=== PATIENT | female | born 1955 | race Caucasian/White ===

== ENCOUNTER 2016-09-11 19:18 | Observation (INO) | payer OTHER ==
[2016-09-11] MEDS ORDERED: ASPIRIN 81 MG CHEW PO STA ×2 (20:26→20:34)
--- NOTE | 2016-09-11 20:56 | ED ---
Chest Pain HPI - General Source: patient, RN notes reviewed Mode of arrival: wheelchair Limitations: no limitations <Ham Robins - Last Filed: 09/11/16 21:40> <Usama Barlow - Last Filed: 09/11/16 22:10> - General Chief Complaint: Chest Pain Stated Complaint: Chest Pain Time Seen by Provider: 09/11/16 20:26 - History of Present Illness Initial Comments: 60-year-old female presents emergency Department chief complaint chest pain. Patient states she had chest pain for proximal 4 hours earlier today. Patient states has subsided at this time. Patient states that she has had prior cardiac disease included MT. Patient states she currently sees Dr. Hernandez. Patient states that she has had some intermittent chest pain over the last few weeks but states today was worse. Patient states she took 2 baby aspirin today. Patient did have associated nausea and shortness of breath. Patient states she just didn't feel right. Patient states she has some pain in her left axilla. Patient does not have a history of diabetes though she did states that she has a history of hypertension, hyperlipidemia and smoking history. Patient states she is currently symptom-free at this time. Denies any headache or dizziness. Denies any cough, chest congestion, fever or chills. (Ham Robins) - Related Data Home Medications Medication Instructions Recorded Confirmed Aspirin 81 mg PO DAILY 09/11/16 09/11/16 Lisinopril-Hctz 20-25 mg 1 tab PO DAILY 09/11/16 09/11/16 [Zestoretic 20-25] Loratadine [Claritin] 10 mg PO DAILY PRN 09/11/16 09/11/16 Multivitamins, Thera [Multivitamin 0.5 tab PO BID 09/11/16 09/11/16 (formulary)] Naproxen [Naprosyn] 500 mg PO Q12HR PRN 09/11/16 09/11/16 Pravastatin Sodium [Pravachol] 20 mg PO DAILY 09/11/16 09/11/16 Ranitidine HCl [Zantac] 150 mg PO DAILY 09/11/16 09/11/16 Allergies Allergy/AdvReac Type Severity Reaction Status Date / Time No Known Allergies Allergy Unverified 09/11/16 20:36 Review of Systems ROS Other: All systems not noted in ROS Statement are negative. <Ham Robins - Last Filed: 09/11/16 21:40> ROS Other: All systems not noted in ROS Statement are negative. <Usama Barlow Bhakti - Last Filed: 09/11/16 22:10> ROS Statement: Those systems with pertinent positive or pertinent negative responses have been documented in the HPI. EKG Findings - EKG Comments: EKG Findings:: EKG performed at 19:28 normal sinus rhythm with a rate of 83, MI interval 144, QRS duration 78, QT/QTC 358/420 <Ham Robins - Last Filed: 09/11/16 21:40> Past Medical History Past Medical History: Hyperlipidemia, Hypertension, Myocardial Infarction ([place]) Additional Past Medical History / Comment(s): leaky vavle - unknown which valve History of Any Multi-Drug Resistant Organisms: None Reported Additional Past Surgical History / Comment(s): cyst removed Past Psychological History: No Psychological Hx Reported Smoking Status: Current every day smoker Past Alcohol Use History: Daily Past Drug Use History: None Reported <Ham Robins - Last Filed: 09/11/16 21:40> General Exam Limitations: no limitations General appearance: alert, in no apparent distress Head exam: Present: atraumatic, normocephalic, normal inspection ENT exam: Present: normal exam, normal oropharynx, mucous membranes moist Neck exam: Present: normal inspection, full ROM. Absent: tenderness, meningismus, lymphadenopathy Respiratory exam: Present: normal lung sounds bilaterally. Absent: respiratory distress, wheezes, rales, rhonchi, stridor Cardiovascular Exam: Present: regular rate, normal rhythm, normal heart sounds. Absent: systolic murmur, diastolic murmur, rubs, gallop, clicks GI/Abdominal exam: Present: soft, normal bowel sounds. Absent: distended, tenderness, guarding, rebound, rigid <Ham Robins - Last Filed: 09/11/16 21:40> General appearance: alert, in no apparent distress, anxious Head exam: Present: atraumatic, normocephalic, normal inspection Eye exam: Present: normal appearance, PERRL, EOMI. Absent: scleral icterus, conjunctival injection, periorbital swelling ENT exam: Present: normal exam, mucous membranes moist Neck exam: Present: normal inspection. Absent: tenderness, meningismus, lymphadenopathy Respiratory exam: Present: normal lung sounds bilaterally. Absent: respiratory distress, wheezes, rales, rhonchi, stridor Cardiovascular Exam: Present: regular rate, normal rhythm, normal heart sounds. Absent: systolic murmur, diastolic murmur, rubs, gallop, clicks GI/Abdominal exam: Present: soft, normal bowel sounds. Absent: distended, tenderness, guarding, rebound, rigid Extremities exam: Present: normal inspection, full ROM, normal capillary refill. Absent: tenderness, pedal edema, joint swelling, calf tenderness Back exam: Present: normal inspection Neurological exam: Present: alert, oriented X3, CN II-XII intact Psychiatric exam: Present: normal affect, normal mood Skin exam: Present: warm, dry, intact, normal color. Absent: rash <Usama Barlow - Last Filed: 09/11/16 22:10> Course <Ham Robins - Last Filed: 09/11/16 21:40> <Usama Barlow - Last Filed: 09/11/16 22:10> Vital Signs 09/11/16 20:40 Temperature 98.9 F Pulse Rate 78 Respiratory 18 Rate Blood Pressure 106/62 O2 Sat by Pulse 100 Oximetry - Reevaluation(s) Reevaluation #1: 09/11/16 22:09 Patient remains a typical chest pain at this time, spoke with Dr. Cuevas re- admission (Usama Barlow) Chest Pain MDM <Ham Robins - Last Filed: 09/11/16 21:40> <Usama Barlow - Last Filed: 09/11/16 22:10> - MDM 60 female in the ER for evaluation of chest pain. Patient has typical chest pain, patient's initial EKG and troponin are negative, significant cardiac risk include prior MT hypertension high cholesterol, patient will be admitted for trending of troponin, cardiac observation (Usama Barlow) Critical Care Time Critical Care Time: Yes Total Critical Care Time: 31 <Usama Barlow - Last Filed: 09/11/16 22:10> Disposition <Ham Robins - Last Filed: 09/11/16 21:40> <Usama Barlow - Last Filed: 09/11/16 22:10> Clinical Impression: Unstable angina Disposition: ADMITTED IP TO THIS HOSP Condition: Good Referrals: Anish Hernandez MD [Primary Care Provider] - 1-2 days
[2016-09-11 21:02] LABS: Basophils % (A) 0 %; CH 33.8; CHCM 33.4; Eosinophils # (A) 0.1 k/uL (0-0.7); Eosinophils % (A) 2 %; HCT 32.7 % (34.0-46.0); HDW 2.14; HGB 10.8 gm/dL (11.4-16.0); Luc # (Auto) 0.19; Luc % (Auto) 4; Lymphocytes # (A) 1.6 k/uL (1.0-4.8); Lymphocytes % (A) 31 %; MCH 33.6 pg (25.0-35.0); MCV 101.7 fL (80.0-100.0); Macrocytosis Slight; Mean Platelet Volume 9.4; Monocytes # (A) 0.3 k/uL (0-1.0); Monocytes % (A) 6 %; Neutrophils # (A) 2.9 k/uL (1.3-7.7); Neutrophils % (A) 57 %; RBC 3.21 m/uL (3.80-5.40); RDW 13.2 % (11.5-15.5); WBC 5.1 k/uL (3.8-10.6); WBC (Perox) 5.27
[2016-09-11 21:09] LABS: Partial Thromboplastin Time 22.1 sec (22.0-30.0); Prothrombin Time 9.8 sec (9.0-12.0)
[2016-09-11 21:10] LABS: Calcium 10.4 mg/dL (8.4-10.2); Magnesium 1.8 mg/dL (1.6-2.3); Potassium 5.3 mmol/L (3.5-5.1); Total Bilirubin 0.5 mg/dL (0.2-1.3); Total Protein 7.9 g/dL (6.3-8.2)
--- NOTE | 2016-09-11 21:22 | XR ---
EXAMINATION TYPE: XR chest 2V DATE OF EXAM: 09/11/2016 9:06 PM COMPARISON: NONE HISTORY: Chest pain TECHNIQUE: Frontal and lateral views of the chest are obtained. FINDINGS: Heart and mediastinum are normal. Lungs are clear. Diaphragm is normal. Bony thorax is int act. There are chest leads. IMPRESSION: Normal chest.
[2016-09-11 21:32] LABS: Creatine Kinase 78 U/L (30-135)
[2016-09-11] MEDS ORDERED: HEPARIN SODIUM,PORCINE 5,000 UNIT/ML 1 ML VIAL IV ONE (21:41)
[2016-09-11] MEDS ORDERED: NITROGLYCERIN SL TABS 0.4 MG TAB SUBLINGUAL PRN (21:41)
[2016-09-11 21:44] LABS: Creatine Kinase MB 0.4 ng/mL (0.0-2.4); Troponin I <0.012 ng/mL (0.000-0.034)
[2016-09-11] MEDS ORDERED: HEPARIN SODIUM,PORCINE/D5W PMX 25,000 UNIT in DEXTROSE/WATER 1 500ML.BAG IV SCH (21:45)
[2016-09-11] MEDS ORDERED: SODIUM CHLORIDE 0.9% 1,000 ML IV STA (22:44)
[2016-09-11] MEDS ORDERED: NICOTINE 21MG/24HR PATCH TRANSDERM STA (23:15)
[2016-09-11 23:55] VITALS: BMI 18.7
[2016-09-12 02:44] LABS: Creatine Kinase 64 U/L (30-135)
[2016-09-12 02:58] LABS: Creatine Kinase MB 0.4 ng/mL (0.0-2.4); Troponin I <0.012 ng/mL (0.000-0.034)
[2016-09-12] MEDS ORDERED: FAMOTIDINE 20 MG TAB PO SCH (09:00)
[2016-09-12] MEDS ORDERED: ASPIRIN 325 MG TAB PO SCH (09:00)
[2016-09-12 10:01] LABS: Anion Gap 13 mmol/L; Blood Urea Nitrogen 30 mg/dL (7-17); Calcium 10.2 mg/dL (8.4-10.2); Carbon Dioxide 21 mmol/L (22-30); Chloride 104 mmol/L (98-107); Cholesterol 183 mg/dL (<200); Glucose 86 mg/dL (74-99); HDL Cholesterol 110 mg/dL (40-60); Non-African American GFR(MDRD) 58 (>60 ml/min/1.73 sqM); Potassium 5.3 mmol/L (3.5-5.1); Sodium 138 mmol/L (137-145); Triglycerides 72 mg/dL (<150)
[2016-09-12 10:13] LABS: Creatine Kinase 64 U/L (30-135)
[2016-09-12 10:25] LABS: Creatine Kinase MB 0.3 ng/mL (0.0-2.4); Troponin I <0.012 ng/mL (0.000-0.034)
[2016-09-12] MEDS ORDERED: REGADENOSON 0.4 MG/5 ML SYRINGE IV ONE (13:00)
--- NOTE | 2016-09-12 13:01 | CONS ---
DATE OF CONSULTATION: This is a 60-year-old female. Patient follows with my associate, Dr. Joel Hernandez, in the office. The patient apparently had a few episodes of chest heaviness and pressure on a scale of 1 to 10, 5 with radiation to both axilla and jaw, lasting for about 6 or 6 minutes. Patient did not have any nitroglycerin to try. The patient presented to the emergency room. Patient was pain free by the time came to the emergency room, took 2 nitroglycerin tablets. Patient is a smoker, smokes about 1-1/2 packs of cigarettes a day. Patient also takes alcoholic beverages, a couple of drinks a day. Patient is known to have hypertension, hyperlipidemia, history of smoking. No previous cardiac interventions. Patient's current medications are aspirin 81 mg p.o. daily, lisinopril with hydrochlorothiazide 1 tablet daily, Claritin 10 mg p.o. daily, multivitamins daily, Naprosyn 500 mg every 12 hours p.r.n., pravastatin 20 mg daily, ranitidine 150 mg. Patient has been advised to stop using Naprosyn because of the hyperkalemia. ALLERGIES: None mentioned. Patient's coronary risk factors are hypertension, and patient's cholesterol is normal with LDL cholesterol of 59 and history of smoking. PHYSICAL EXAMINATION: A 60-year-old female not in acute distress, oriented x3 with a pulse rate of 65 beats per minute and regular, blood pressure of 110/64, respirations of 16. HEAD: Normocephalic. HEENT: Unremarkable. NECK: Neck is supple. No thyroid enlargement. No bruit noted. Good carotid upstroke bilaterally. Chest is symmetrical. CARDIAC EXAMINATION: Regular rate and rhythm. S1 and S2. Lungs reveal scattered rhonchi, otherwise unremarkable. ABDOMEN: Soft, no organomegaly. Active bowel sounds. EXTREMITIES: Fair peripheral pulses. No pedal edema. SAND CASTER EXAMINATION: Grossly within normal limits. ASSESSMENT: 1. Chest pain suggestive of angina, possibly vasospastic ( ) by nicotine. 2. Long-term nicotine abuse. 3. History of alcohol use. 4. Hypertension. 5. Mild hyperkalemia probably secondary to non-steroidal anti-inflammatory use. RECOMMENDATIONS: Proceed with stress echocardiogram if normal, patient will go home. If the stress echocardiogram is abnormal, will hold lisinopril ( ) because the blood pressure is low. She will continue pravastatin as before.
--- NOTE | 2016-09-12 13:27 | P.HPIM ---
History of Present Illness H&P Date: 09/12/16 Chief Complaint: Chest pain Patient is a 60-year-old female, patient of Dr. Reji Cuevas in the outpatient setting, with medical history significant for hyperlipidemia, hypertension, myocardial infarction, chronic kidney disease stage III, mild pulmonary hypertension, nicotine dependence, and daily alcohol use. Patient presented to the emergency department with complaints of chest pressure located in the middle of her chest radiating to her right and left armpit and upper neck associated with nausea and some shortness of breath. Patient awoke with symptoms at 6:30 in the morning and states symptoms lasted approximately 6-8 minutes. Patient states that over the last 3 weeks she has experienced symptoms approximately 2 or 3 times a week. No history of recent illness, nausea , vomiting, fevers, abdominal pain, leg swelling, numbness or tingling. Patient denies diarrhea or constipation. Patient denies any urinary symptoms. Admission labs with evidence of anemia with a hemoglobin of 10.8, hyperkalemia with a potassium of 5.3, acute on chronic renal failure with BUN to creatinine ratio greater than 20, and troponins negative 3. Chest x-ray without evidence of acute cardiopulmonary process. In the emergency department, patient was started on IV heparin and admitted for observation with cardiology consult. Patient is currently denying nausea, vomiting, chills, fevers, shortness of breath, chest pain, abdominal pain, leg swelling, numbness or tingling. Patient is scheduled to undergo stress test, echocardiogram with Doppler result pending. Past Medical History Past Medical History: Hyperlipidemia, Hypertension, Myocardial Infarction ([place]), Renal Disease (Chronic renal disease stage III.) Additional Past Medical History / Comment(s): leaky vavle - unknown which valve , mild pulmonary hypertension Last Myocardial Infarction Date:: 2004 History of Any Multi-Drug Resistant Organisms: None Reported Additional Past Surgical History / Comment(s): cyst removed from ovary Past Anesthesia/Blood Transfusion Reactions: No Reported Reaction Past Psychological History: No Psychological Hx Reported Smoking Status: Current every day smoker Past Alcohol Use History: Daily Past Drug Use History: None Reported - Past Family History Mother Family Medical History: Diabetes Mellitus Father Family Medical History: Diabetes Mellitus Medications and Allergies Home Medications Medication Instructions Recorded Confirmed Type Aspirin 81 mg PO DAILY 09/11/16 09/11/16 History Lisinopril-Hctz 20-25 mg 1 tab PO DAILY 09/11/16 09/11/16 History [Zestoretic 20-25] Loratadine [Claritin] 10 mg PO DAILY PRN 09/11/16 09/11/16 History Multivitamins, Thera [Multivitamin 0.5 tab PO BID 09/11/16 09/11/16 History (formulary)] Naproxen [Naprosyn] 500 mg PO Q12HR PRN 09/11/16 09/11/16 History Pravastatin Sodium [Pravachol] 20 mg PO DAILY 09/11/16 09/11/16 History Ranitidine HCl [Zantac] 150 mg PO DAILY 09/11/16 09/11/16 History Allergies Allergy/AdvReac Type Severity Reaction Status Date / Time No Known Allergies Allergy Verified 09/11/16 23:42 Physical Exam Vitals: Vital Signs Temp Pulse Pulse Resp BP BP Pulse Ox 09/12/16 12:00 98.8 F 70 16 108/59 100 09/12/16 08:00 98.2 F 72 18 110/64 97 09/12/16 04:00 98.8 F 65 16 84/51 100 09/12/16 00:22 16 09/11/16 23:35 98.3 F 69 16 106/56 96 09/11/16 23:00 97.9 F 72 20 100/65 100 Intake and Output 09/11/16 09/12/16 09/12/16 22:59 06:59 14:59 Other: Voiding Method Toilet # Voids 1 1 Weight 43.5 kg GENERAL: Pt awake and alert, thin, in no acute distress. HEAD: Atraumatic, normocephalic. EYES: Pupils equal, round, and reactive to light, extraocular movements intact, sclera anicteric, conjunctiva are normal. ENT: Oropharynx clear without exudates. Moist mucous membranes. NECK:Normal range of motion, supple without lymphadenopathy or JVD. LUNGS: Breath sounds with few scattered rhonchi to auscultation bilaterally. No wheezes. HEART: Heart S1, S2, no S3 or S4. Regular rate and rhythm. No murmurs, rubs or gallops. ABDOMEN: Soft, nontender, nondistended, normoactive bowel sounds. No guarding, no rebound. No masses or organomegaly appreciated. EXTREMITIES: Palpable peripheral pulses. No edema. No calf tenderness. NEUROLOGICAL: Pt oriented x 3. No focal deficits noted. Strength and sensation grossly intact. PSYCH: Normal mood, normal affect. SKIN: Warm, dry, intact. Normal turgor. No rashes or lesions. Results CBC & Chem 7: 09/11/16 20:50 09/12/16 08:45 Labs: Abnormal Lab Results - Last 24 Hours (Table) 09/12/16 Range/Units 08:45 Potassium 5.3 H (3.5-5.1) mmol/L Carbon Dioxide 21 L (22-30) mmol/L BUN 30 H (7-17) mg/dL HDL Cholesterol 110 H (40-60) mg/dL Chest x-ray: report reviewed Thrombosis Risk Factor Assmnt - DVT/VTE Prophylaxis DVT/VTE Prophylaxis: Low risk, early ambulation encouraged - Choose All That Apply Each Factor Represents 1 point: Age 41-60 years Thrombosis Risk Factor Assessment Total Risk Factor Score: 1 Thrombosis Risk Factor Assessment Level: Low Risk Assessment and Plan Plan: Impression and plan: 1. Unstable angina, present on admission. Cardiology service has been consulted, recommendations pending. Troponins negative 3. 2. Macrocytic anemia suspect secondary to alcohol use. 3. Hyperkalemia. Will hold NSAIDs, lisinopril, and hydrochlorothiazide. 4. Chronic renal failure, stage III. 5. Hyperlipidemia. 6. History of hypertension. 7. Mild pulmonary hypertension. 8. History of myocardial infarction. 9. Nicotine dependence. 10. Daily alcohol use. Continue to monitor patient. Continue current medications. Patient scheduled to undergo stress test. Echocardiogram with Doppler result pending. Smoking cessation encouraged. Will check B12 and folate. Encourage smoking cessation. Continue follow cardiology service. The above impression and plan have been discussed and directed by Dr. Cuevas. John KAY acting as scribe for Dr. Cuevas.
--- NOTE | 2016-09-12 13:35 | ECHOF ---
Referral Reason:chest pain MEASUREMENTS -------- HEIGHT: 154.9 cm WEIGHT: 43.1 kg BP: 84/51 IVSd: 1.0 cm (0.6 - 1.1) LVIDd: 3.3 cm (3.9 - 5.3) LVPWd: 1.1 cm (0.6 - 1.1) IVSs: 1.4 cm LVIDs: 2.5 cm LVPWs: 1.4 cm Ao Diam: 2.6 cm (2.0 - 3.7) AV Cusp: 1.7 cm (1.5 - 2.6) LA Diam: 2.3 cm (2.7 - 3.8) MV EXCURSION: 14.056 mm (> 18.000) MV EF SLOPE: 85 mm/s (70 - 150) EPSS: 0.3 cm MV E Juan: 0.74 m/s MV DecT: 224 ms MV A Juan: 0.73 m/s MV E/A Ratio: 1.01 RAP: 5.00 mmHg RVSP: 32.95 mmHg FINDINGS -------- Sinus rhythm. This was a technically good study. The left ventricular size is normal. Left ventricular wall thickness is normal. Overall left ventricular systolic function is normal with, an EF between 55 - 60 %. The right ventricle is normal in size and function. The left atrium is normal in size. The right atrium is normal in size. The aortic valve is trileaflet, and appears structurally normal. No aortic stenosis or regurgitation. The mitral valve is normal. Mild mitral regurgitation is present. Moderate tricuspid regurgitation present. The right ventricular systolic pressure, as measured by Doppler, is 32.95mmHg. There is no pulmonic regurgitation present. The aortic root size is normal. There is no pericardial effusion. CONCLUSIONS -------- 1. Sinus rhythm. 2. There is no pulmonic regurgitation present. 3. The aortic root size is normal. 4. There is no pericardial effusion. 5. This was a technically good study. 6. Left ventricular wall thickness is normal. 7. Overall left ventricular systolic function is normal with, an EF between 55 - 60 %. 8. The left atrium is normal in size. 9. The aortic valve is trileaflet, and appears structurally normal. No aortic stenosis or regurgitation. 10. Mild mitral regurgitation is present. 11. Moderate tricuspid regurgitation present. 12. The right ventricular systolic pressure, as measured by Doppler, is 32.95mmHg. [employer]: Saige Hubbard RDCS
--- NOTE | 2016-09-12 14:18 | EST ---
DATE OF SERVICE: 09/12/2016 AGE: 60Y SEX: F HT: 60" WT: 95 lbs. Lexiscan Cardiolite Stress Test *Heart Rate Blood Pressure *Rest: 82 Rest: 111/67 * *Max. Achieved: 136 Maximum BP: 124/71 85% PMHR: 137 100% PMHR: 161 *METS: - INDICATIONS: Chest pain. MEDICATIONS: - Baseline rhythm is sinus mechanism, rate of 82, poor R0wave progression. Baseline blood pressure 111/67 mmHg. Patient received an injection of Lexiscan. Electrocardiograph monitoring revealed no evidence of diagnostic ischemic ST deviation. Cardiolite was injected per protocol. CONCLUSION: 1. Nondiagnostic electrocardiograph stress testing. 2. Nuclear images will be reported separately.
--- NOTE | 2016-09-12 14:21 | NM ---
EXAMINATION TYPE: NM stress lexiscan cardiolite DATE OF EXAM: 09/12/2016 2:06 PM COMPARISON: Chest x-ray 11 September 2016 HISTORY: Chest pain TECHNIQUE: After the intravenous administration of 11 mCi Tc 99m Sestamibi - Cardiolite resting SPEC T images acquired 45 minutes post injection. The patient received 0.4mg Lexiscan, 27.5 mCi Tc 99m Sestamibi - Stress images obtained [address] injection FINDINGS: Review of stress and rest SPECT images demonstrates no distinct perfusion abnormality. Gated analysi s shows normal wall motion with an estimated left ventricular ejection fraction of 48 %. IMPRESSION: No scintigraphic evidence for reversible ischemia.
[2016-09-12 15:05] LABS: Vitamin B12 199 pg/mL (239-931)
[2016-09-12 16:51] VITALS: BP 95/54; PULSE 79; RESP 18; TEMP 98.4
[2016-09-13] MEDS ORDERED: PRAVASTATIN SODIUM 20 MG TAB PO SCH (09:00)
[2016-09-13] MEDS ORDERED: NICOTINE 21MG/24HR PATCH TRANSDERM SCH (09:00)
== END 2016-09-12 17:41 | disposition home or self-care (01) ==
LOC: SUPCPDRO 19:18 → EC 19:18 → 3OBS 22:06
PROVIDERS: ADMIT Family Medicine; ATTEND Family Medicine
DX: I20.0 Unstable angina (principal); I12.9 Hypertensive chronic kidney disease with stage 1 through stage 4 chronic kidney disease, or unspecified chronic kidney disease; N18.3 Chronic kidney disease, stage 3 (moderate); E78.5 Hyperlipidemia, unspecified; I25.2 Old myocardial infarction; F17.210 Nicotine dependence, cigarettes, uncomplicated; E87.5 Hyperkalemia; I27.2 Other secondary pulmonary hypertension; Z83.3 Family history of diabetes mellitus; D53.9 Nutritional anemia, unspecified; Z79.82 Long term (current) use of aspirin; Z79.899 Other long term (current) drug therapy
CPT/HCPCS: 99285 ×2; 96374 ×2; 36415; 93005; 93017; 93306; 80061; 80053; 80048; 82607; 82550 ×2; 82553 ×2; 82746; 83735; 84484 ×2; 85025; 85610; 85730 ×2; 71020; 78452; 96376; G0378 ×2; A9500; S4990; J1644 ×2; J2785; 96365; 96366

== ENCOUNTER 2017-01-20 12:02 | Inpatient (IN) | payer OTHER ==
[2017-01-20] MEDS ORDERED: ASPIRIN 81 MG CHEW PO STA (12:28)
[2017-01-20] MEDS ORDERED: NITROGLYCERIN OINT 1 INCH/GM PACKET TOPICAL STA (12:28)
[2017-01-20] MEDS ORDERED: SODIUM CHLORIDE 0.9% 1,000 ML IV STA ×2 (12:28→13:12)
--- NOTE | 2017-01-20 12:34 | ED ---
General Adult HPI - General Chief complaint: Chest Pain Stated complaint: Chest Pain Time Seen by Provider: 01/20/17 12:24 Source: patient, RN notes reviewed Mode of arrival: ambulatory Limitations: no limitations - History of Present Illness Initial comments: Patient is a pleasant 61-year-old female presenting to the emergency department complaining of chest discomfort. Onset was last night. Symptoms persist today. Discomfort is 4/10. Patient did take one nitroglycerin without much improvement. Patient has nausea with multiple episodes of vomiting or dry heaves. Patient does feel slightly short of breath. Patient was a little bit sweaty. No history of similar symptoms previously. No leg pain or swelling. Discomfort is described as an ache or tight. - Related Data Home Medications Medication Instructions Recorded Confirmed Aspirin 81 mg PO DAILY 09/11/16 01/20/17 Lisinopril-Hctz 20-25 mg 1 tab PO DAILY 09/11/16 01/20/17 [Zestoretic 20-25] Multivitamins, Thera [Multivitamin 0.5 tab PO BID 09/11/16 01/20/17 (formulary)] Pravastatin Sodium [Pravachol] 20 mg PO DAILY 09/11/16 01/20/17 Allergies Allergy/AdvReac Type Severity Reaction Status Date / Time No Known Allergies Allergy Verified 01/20/17 13:15 Review of Systems ROS Statement: Those systems with pertinent positive or pertinent negative responses have been documented in the HPI. ROS Other: All systems not noted in ROS Statement are negative. Constitutional: Denies: fever, chills Eyes: Denies: eye pain ENT: Denies: ear pain Respiratory: Reports: dyspnea. Denies: cough Cardiovascular: Reports: chest pain Endocrine: Denies: fatigue Gastrointestinal: Reports: nausea, vomiting. Denies: abdominal pain Genitourinary: Denies: dysuria Musculoskeletal: Denies: back pain Skin: Denies: rash Neurological: Denies: weakness Past Medical History Past Medical History: Hyperlipidemia, Hypertension, Myocardial Infarction ([place]), Renal Disease Additional Past Medical History / Comment(s): leaky vavle - unknown which valve , mild pulmonary hypertension Last Myocardial Infarction Date:: 2004 History of Any Multi-Drug Resistant Organisms: None Reported Additional Past Surgical History / Comment(s): cyst removed from ovary Past Anesthesia/Blood Transfusion Reactions: No Reported Reaction Past Psychological History: No Psychological Hx Reported Smoking Status: Current every day smoker Past Alcohol Use History: Daily Past Drug Use History: None Reported - Past Family History Mother Family Medical History: Diabetes Mellitus Father Family Medical History: Diabetes Mellitus General Exam Limitations: no limitations General appearance: alert, in no apparent distress Head exam: Present: atraumatic Eye exam: Present: normal appearance, PERRL ENT exam: Present: normal oropharynx Neck exam: Present: normal inspection Respiratory exam: Present: normal lung sounds bilaterally. Absent: chest wall tenderness Cardiovascular Exam: Present: regular rate, normal rhythm Expanded Peripheral pulses: 2+: Radial (R), Radial (L), Posterior Tibialis (R), Posterior Tibialis (L) GI/Abdominal exam: Present: soft, tenderness (Mild epigastric tenderness that patient believes is from her vomiting), normal bowel sounds. Absent: distended , guarding, rebound, rigid, pulsatile mass Extremities exam: Present: normal inspection. Absent: pedal edema, calf tenderness Neurological exam: Present: alert Psychiatric exam: Present: normal affect, normal mood Skin exam: Present: normal color Course Vital Signs 01/20/17 01/20/17 01/20/17 12:05 12:33 13:05 Temperature 98.3 F Pulse Rate 125 H 104 H Pulse Rate [ 118 H [employer] ] Respiratory 20 18 Rate Blood Pressure 106/62 118/71 O2 Sat by Pulse 97 98 Oximetry EKG Findings - EKG Comments: EKG Findings:: Sinus tachycardia 128. VA 120. QRS 58. QT 322. QTC 470. Left axis. Septal Q waves. No acute ST change. Medical Decision Making - Medical Decision Making Patient reexamined and improved. Patient states discomfort and nausea are mild at this time. Patient does admit to having a history of pancreatitis once 10 years ago. Patient does admit to alcohol use. Patient and family are updated on results and plan. Case was discussed in detail with Dr. Guidry, who will admit for Dr. Galvan. VQ scan and ultrasound have been ordered. Patient will be provided further fluids. Heart rate has improved to 94. - Lab Data Result diagrams: 01/20/17 12:27 01/20/17 12:27 Lab Results 01/20/17 01/20/17 01/20/17 Range/Units 12:27 12:27 12:27 WBC 7.2 (3.8-10.6) k/uL RBC 3.37 L (3.80-5.40) m/uL Hgb 11.5 (11.4-16.0) gm/dL Hct 37.0 (34.0-46.0) % MCV 109.6 H (80.0-100.0) fL MCH 34.2 (25.0-35.0) pg MCHC 31.2 (31.0-37.0) g/dL RDW 13.3 (11.5-15.5) % Plt Count 229 (150-450) k/uL Neutrophils % 83 % Lymphocytes % 7 % Monocytes % 8 % Eosinophils % 1 % Basophils % 0 % Neutrophils # 5.9 (1.3-7.7) k/uL Lymphocytes # 0.5 L (1.0-4.8) k/uL Monocytes # 0.6 (0-1.0) k/uL Eosinophils # 0.0 (0-0.7) k/uL Basophils # 0.0 (0-0.2) k/uL Manual Slide Review Performed Hypochromasia Slight Macrocytosis Marked PT (9.0-12.0) sec INR (<1.2) APTT (22.0-30.0) sec D-Dimer (<0.60) mg/L FEU Sample Site ABG pH (7.35-7.45) ABG pCO2 (35-45) mmHg ABG pO2 (83-108) mmHg ABG HCO3 (21-25) mmol/L ABG Total CO2 (19-24) mmol/L ABG O2 Saturation (94-97) % ABG Base Excess mmol/L FiO2 % Sodium 137 (137-145) mmol/L Potassium 6.1 H (3.5-5.1) mmol/L Chloride 100 (98-107) mmol/L Carbon Dioxide 7 L* (22-30) mmol/L Anion Gap 30 mmol/L BUN 38 H (7-17) mg/dL Creatinine 2.78 H (0.52-1.04) mg/dL Est GFR (MDRD) Af Amer 21 (>60 ml/min/1.73 sqM) Est GFR (MDRD) Non-Af 17 (>60 ml/min/1.73 sqM) Glucose 79 (74-99) mg/dL Calcium 10.2 (8.4-10.2) mg/dL Magnesium 2.0 (1.6-2.3) mg/dL Total Bilirubin 0.6 (0.2-1.3) mg/dL AST 63 H (14-36) U/L ALT 51 (9-52) U/L Alkaline Phosphatase 111 (38-126) U/L Total Creatine Kinase 85 (30-135) U/L CK-MB (CK-2) 0.9 (0.0-2.4) ng/mL CK-MB (CK-2) Rel Index 1.1 Troponin I <0.012 (0.000-0.034) ng/mL NT-Pro-B Natriuret Pep pg/mL Total Protein 7.7 (6.3-8.2) g/dL Albumin 4.7 (3.5-5.0) g/dL Amylase 909 H* (30-110) U/L Lipase >45554 H (23-300) U/L 01/20/17 01/20/17 01/20/17 Range/Units 12:27 12:27 13:31 WBC (3.8-10.6) k/uL RBC (3.80-5.40) m/uL Hgb (11.4-16.0) gm/dL Hct (34.0-46.0) % MCV (80.0-100.0) fL MCH (25.0-35.0) pg MCHC (31.0-37.0) g/dL RDW (11.5-15.5) % Plt Count (150-450) k/uL Neutrophils % % Lymphocytes % % Monocytes % % Eosinophils % % Basophils % % Neutrophils # (1.3-7.7) k/uL Lymphocytes # (1.0-4.8) k/uL Monocytes # (0-1.0) k/uL Eosinophils # (0-0.7) k/uL Basophils # (0-0.2) k/uL Manual Slide Review Hypochromasia Macrocytosis PT 9.6 (9.0-12.0) sec INR 0.9 (<1.2) APTT 23.2 (22.0-30.0) sec D-Dimer 7.03 H (<0.60) mg/L FEU Sample Site rrad ABG pH 7.20 L* (7.35-7.45) ABG pCO2 16 L* (35-45) mmHg ABG pO2 141 H (83-108) mmHg ABG HCO3 6 L* (21-25) mmol/L ABG Total CO2 6 L (19-24) mmol/L ABG O2 Saturation 99.0 H (94-97) % ABG Base Excess -21.0 mmol/L FiO2 28 % Sodium (137-145) mmol/L Potassium (3.5-5.1) mmol/L Chloride (98-107) mmol/L Carbon Dioxide (22-30) mmol/L Anion Gap mmol/L BUN (7-17) mg/dL Creatinine (0.52-1.04) mg/dL Est GFR (MDRD) Af Amer (>60 ml/min/1.73 sqM) Est GFR (MDRD) Non-Af (>60 ml/min/1.73 sqM) Glucose (74-99) mg/dL Calcium (8.4-10.2) mg/dL Magnesium (1.6-2.3) mg/dL Total Bilirubin (0.2-1.3) mg/dL AST (14-36) U/L ALT (9-52) U/L Alkaline Phosphatase (38-126) U/L Total Creatine Kinase (30-135) U/L CK-MB (CK-2) (0.0-2.4) ng/mL CK-MB (CK-2) Rel Index Troponin I (0.000-0.034) ng/mL NT-Pro-B Natriuret Pep 399 pg/mL Total Protein (6.3-8.2) g/dL Albumin (3.5-5.0) g/dL Amylase (30-110) U/L Lipase (23-300) U/L - Radiology Data Radiology results: image reviewed (Chest x-ray and abdominal x-ray revealed no acute process) Disposition Clinical Impression: Acute pancreatitis, Acute renal failure (ARF) Disposition: ADMITTED IP TO THIS [facility] Condition: Serious Referrals: Ham Velazquez DO [Primary Care Provider] - 1-2 days Decision Time: 13:44
[2017-01-20 12:46] LABS: Basophils % (A) 0 %; CH 33.1; CHCM 30.3; Eosinophils % (A) 1 %; HDW 2.06; HGB 11.5 gm/dL (11.4-16.0); Hypochromasia Slight; Luc # (Auto) 0.14; Luc % (Auto) 2; Lymphocytes # (A) 0.5 k/uL (1.0-4.8); Lymphocytes % (A) 7 %; MCH 34.2 pg (25.0-35.0); MCHC 31.2 g/dL (31.0-37.0); MCV 109.6 fL (80.0-100.0); Macrocytosis Marked; Mean Platelet Volume 8.7; Monocytes # (A) 0.6 k/uL (0-1.0); Monocytes % (A) 8 %; Neutrophils # (A) 5.9 k/uL (1.3-7.7); Neutrophils % (A) 83 %; RBC 3.37 m/uL (3.80-5.40); RDW 13.3 % (11.5-15.5); WBC 7.2 k/uL (3.8-10.6); WBC (Perox) 7.04
[2017-01-20 12:52] LABS: ALT 51 U/L (9-52); AST 63 U/L (14-36); Alkaline Phosphatase 111 U/L (38-126); Anion Gap 30 mmol/L; Blood Urea Nitrogen 38 mg/dL (7-17); Calcium 10.2 mg/dL (8.4-10.2); Chloride 100 mmol/L (98-107); Glucose 79 mg/dL (74-99); Non-African American GFR(MDRD) 17 (>60 ml/min/1.73 sqM); Potassium 6.1 mmol/L (3.5-5.1); Sodium 137 mmol/L (137-145); Total Bilirubin 0.6 mg/dL (0.2-1.3); Total Protein 7.7 g/dL (6.3-8.2)
[2017-01-20 12:57] LABS: Manual Review Performed
[2017-01-20 12:59] LABS: Amylase 909 U/L (30-110); Carbon Dioxide 7 mmol/L (22-30)
[2017-01-20 13:02] LABS: Creatine Kinase 85 U/L (30-135)
[2017-01-20 13:06] LABS: INR 0.9 (<1.2); Partial Thromboplastin Time 23.2 sec (22.0-30.0); Prothrombin Time 9.6 sec (9.0-12.0)
--- NOTE | 2017-01-20 13:09 | XR ---
EXAMINATION TYPE: XR chest 2V DATE OF EXAM: 01/20/2017 COMPARISON: Chest x-ray September 11, 2016. HISTORY: Chest pain per order. Dizziness and weakness per patient. TECHNIQUE: Frontal and lateral views of the chest are obtained. FINDINGS: Symmetric rounded densities over bilateral lower thorax are felt to reflect patient's nippl es. They were present on prior study. There is no focal air space opacity, pleural effusion, or pneum othorax seen. The cardiac silhouette size is within normal limits. The osseous structures are some what demineralized. IMPRESSION: No acute cardiopulmonary process. No significant change from prior.
--- NOTE | 2017-01-20 13:11 | XR ---
EXAMINATION TYPE: XR abdomen 1V DATE OF EXAM: 01/20/2017 1:03 PM CLINICAL HISTORY: Dizziness and weakness. TECHNIQUE: Single upright KUB image of the abdomen is obtained. COMPARISON: None. FINDINGS: Air-fluid level is seen in slightly prominent stomach. Some paucity of bowel gas is present . In visualized gas is noted in nondistended small bowel loops in the lower abdomen. Gas is seen in n ondistended rectum and colonic loops in the pelvis. No pneumoperitoneum is present. Some scattered va scular calcification is seen. IMPRESSION: Overall nonspecific but favor nonobstructive bowel gas pattern.
[2017-01-20 13:15] LABS: Creatine Kinase MB 0.9 ng/mL (0.0-2.4); Troponin I <0.012 ng/mL (0.000-0.034)
[2017-01-20] MEDS ORDERED: ONDANSETRON 4 MG/2 ML VIAL IVP STA (13:25)
[2017-01-20 13:37] LABS: ABG HCO3 6 mmol/L (21-25); ABG PCO2 16 mmHg (35-45); ABG PO2 141 mmHg (83-108); ABG TCO2 6 mmol/L (19-24)
[2017-01-20] MEDS ORDERED: NALOXONE 0.4 MG/ML 1 ML VIAL IV PRN (13:44)
[2017-01-20] MEDS ORDERED: ONDANSETRON 4 MG/2 ML VIAL IVP PRN (13:44)
[2017-01-20] MEDS ORDERED: LORazepam 2 MG/ML SYRINGE IV PRN ×4 (13:46)
[2017-01-20] MEDS ORDERED: THIAMINE 100 MG/ML 2 ML VIAL IM STA (13:46)
[2017-01-20] MEDS: PANTOPRAZOLE 40 MG/10 ML VIAL IV SCH (14:06)
[2017-01-20 15:35] VITALS: BMI 20.9
--- NOTE | 2017-01-20 16:14 | NM ---
EXAMINATION TYPE: NM pul vent and perfuse DATE OF EXAM: 01/20/2017 COMPARISON: Chest x-ray from earlier today. HISTORY: Chest pain and dyspnea. TECHNIQUE: Utilizing inhalation of 69.8 mCi Tc 99m DTPA aerosol and intravenous injection of 5.3 mCi of Tc 99m MAA, ventilation and perfusion images are acquired post injection in multiple projections. FINDINGS: Normal radiotracer distribution is noted in the lungs. There is no evidence of mismatched defects. IMPRESSION: No scintigraphic evidence for pulmonary embolism.
[2017-01-20] MEDS: HYDROmorphone 1 MG/ML 1 ML SYRINGE IV PRN ×2 (16:28→18:37)
--- NOTE | 2017-01-20 16:41 | P.HPIM ---
History of Present Illness 7-year-old female came in the emergency department with complaints of discomfort 4 x 10 severe and epigastric burning sensation along with epigastric abdominal pain nonradiating and retrosternal pain. Patient is an alcoholic drinks about 6 shots of whiskey along with the large beer every day. Patient had withdrawals in the past and patient is found to have highly elevated lipase and patient may have severe alcoholic gastritis or peptic ulcer disease Patient has highly elevated d-dimer because of which VQ scan was ordered from ER because the d-dimer is a nonspecific test, results of which are pending area at patient appears to be ill with highly elevated lactic acid anion gap metabolic acidosis with bicarbonate of 6 pH of 7.1 and tachycardia. Patient was started on IV fluids which increased 1 25 mL per hour patient had acute renal failure and severe dehydration from her nausea vomiting and excessive alcohol use. Patient baseline creatinine was 0.9 from her previous admission and now around 2.5. Patient will be nothing by mouth IV fluid resuscitation IV Protonix and pain management. Antidepressive medications will be held and patient is hypotensive at this point of time patient will remain nothing by mouth as mentioned above. Patient is on all call withdrawal precautions along with thiamine supplementation. Patient's EKG showed sinus tachycardia without any acute ST-T wave changes and facet of troponin is negative and 2 more repeat sets were ordered. Review of Systems REVIEW OF SYSTEMS: CONSTITUTIONAL: No fever, no malaise, no fatigue. HEENT: No recent visual problems or hearing problems. Denied any sore throat. CARDIOVASCULAR: No chest pain, orthopnea, PND, no palpitations, no syncope. PULMONARY: No shortness of breath, no cough, no hemoptysis. GASTROINTESTINAL: As mentioned in HPI, patient denied any diarrhea patient denied any hematemesis hematochezia NEUROLOGICAL: No headaches, no weakness, no numbness. HEMATOLOGICAL: Denies any bleeding or petechiae. GENITOURINARY: Denies any burning micturition, frequency, or urgency. MUSCULOSKELETAL/RHEUMATOLOGICAL: Denies any joint pain, swelling, or any muscle pain. ENDOCRINE: Denies any polyuria or polydipsia. The rest of the 14-point review of systems is negative. Past Medical History Past Medical History: Hyperlipidemia, Hypertension, Myocardial Infarction ([place]), Renal Disease Additional Past Medical History / Comment(s): leaky vavle - unknown which valve , mild pulmonary hypertension PANCREATITIS Last Myocardial Infarction Date:: 2004 History of Any Multi-Drug Resistant Organisms: None Reported Additional Past Surgical History / Comment(s): cyst removed from ovary Past Anesthesia/Blood Transfusion Reactions: No Reported Reaction Past Psychological History: No Psychological Hx Reported Smoking Status: Light tobacco smoker Past Alcohol Use History: Abuse, Daily Additional Past Alcohol Use History / Comment(s): PANCREATITIS 10 YR AGO WAS HOSPITALIZED Past Drug Use History: None Reported - Past Family History Mother Family Medical History: Diabetes Mellitus Father Family Medical History: Cancer, Diabetes Mellitus Medications and Allergies Home Medications Medication Instructions Recorded Confirmed Type Aspirin 81 mg PO DAILY 09/11/16 01/20/17 History Lisinopril-Hctz 20-25 mg 1 tab PO DAILY 09/11/16 01/20/17 History [Zestoretic 20-25] Multivitamins, Thera [Multivitamin 0.5 tab PO BID 09/11/16 01/20/17 History (formulary)] Pravastatin Sodium [Pravachol] 20 mg PO DAILY 09/11/16 01/20/17 History Allergies Allergy/AdvReac Type Severity Reaction Status Date / Time No Known Allergies Allergy Verified 01/20/17 13:15 Physical Exam Vitals: Vital Signs Temp Pulse Pulse Resp BP BP Pulse Ox 01/20/17 15:58 97.8 F 109 H 15 126/61 100 01/20/17 14:09 97.5 F L 110 H 20 108/71 96 01/20/17 14:03 97.8 F 109 H 16 126/64 100 01/20/17 13:05 104 H 18 118/71 98 01/20/17 12:33 118 H 01/20/17 12:05 98.3 F 125 H 20 106/62 97 Intake and Output 01/20/17 01/20/17 01/20/17 06:59 14:59 22:59 Intake Total 1000 Balance 1000 Intake: Intake, IV Titration 1000 Amount Sodium Chloride 0.9% 1, 100 000 ml @ 100 mls/hr IV . Q10H STA Rx#:[id number] Sodium Chloride 0.9% 1, 900 000 ml @ 999 mls/hr IV . Q1H1M STA Rx#:[id number] Other: # Voids 0 Weight 48.5 kg Patient Weight 01/21/17 06:59 Weight 48.5 kg PHYSICAL EXAMINATION: GENERAL: The patient is alert and oriented x3, not in any acute distress. Well developed, well nourished. HEENT: Pupils are round and equally reacting to light. EOMI. No scleral icterus. No conjunctival pallor. Normocephalic, atraumatic. No pharyngeal erythema. No thyromegaly. CARDIOVASCULAR: S1 and S2 present. No murmurs, rubs, or gallops. PULMONARY: Chest is clear to auscultation, no wheezing or crackles. ABDOMEN: Soft, epigastric abdominal tenderness, normoactive bowel sounds. MUSCULOSKELETAL: No joint swelling or deformity. EXTREMITIES: No cyanosis, clubbing, or pedal edema. NEUROLOGICAL: Gross neurological examination did not reveal any focal deficits. SKIN: No rashes. Results CBC & Chem 7: 01/20/17 12:27 01/20/17 12:27 Labs: Abnormal Lab Results - Last 24 Hours (Table) 01/20/17 01/20/17 01/20/17 Range/Units 12:27 12: 12:27 RBC 3.37 L (3.80-5.40) m/uL MCV 109.6 H (80.0-100.0) fL Lymphocytes # 0.5 L (1.0-4.8) k/uL D-Dimer 7.03 H (<0.60) mg/L FEU ABG pH (7.35-7.45) ABG pCO2 (35-45) mmHg ABG pO2 (83-108) mmHg ABG HCO3 (21-25) mmol/L ABG Total CO2 (19-24) mmol/L ABG O2 Saturation (94-97) % Potassium 6.1 H (3.5-5.1) mmol/L Carbon Dioxide 7 L* (22-30) mmol/L BUN 38 H (7-17) mg/dL Creatinine 2.78 H (0.52-1.04) mg/dL AST 63 H (14-36) U/L Amylase 909 H* (30-110) U/L Lipase >11943 H (23-300) U/L 01/20/17 Range/Units 13:31 RBC (3.80-5.40) m/uL MCV (80.0-100.0) fL Lymphocytes # (1.0-4.8) k/uL D-Dimer (<0.60) mg/L FEU ABG pH 7.20 L* (7.35-7.45) ABG pCO2 16 L* (35-45) mmHg ABG pO2 141 H (83-108) mmHg ABG HCO3 6 L* (21-25) mmol/L ABG Total CO2 6 L (19-24) mmol/L ABG O2 Saturation 99.0 H (94-97) % Potassium (3.5-5.1) mmol/L Carbon Dioxide (22-30) mmol/L BUN (7-17) mg/dL Creatinine (0.52-1.04) mg/dL AST (14-36) U/L Amylase (30-110) U/L Lipase (23-300) U/L Assessment and Plan Plan: #1 acute pancreatitis: Patient has all alcohol pancreatitis, nothing by mouth him IV fluids. #2 systemic inflammatory response syndrome: Secondary to acute pancreatitis. #3 severe tachycardia due to acute pancreatitis and lactic acidosis. #4 anion gap metabolic acidosis: Secondary to lactic acidosis from severe intravascular volume depletion, dehydration and systemic inflammatory response from pancreatitis #5 alcohol abuse #6 alcohol withdrawal: Patient will be on Ativan protocol with thiamine multivitamin supplementation. Patient doesn't have withdrawals yet #7 acute renal failure: Prerenal azotemia due to severe dehydration. #8 possible alcoholic gastritis: For which patient is on Protonix #9 hypertension: Patient is hypotensive hold off on antidepressant medications #10 hyperlipidemia
--- NOTE | 2017-01-20 18:08 | US ---
EXAMINATION TYPE: US abdomen complete DATE OF EXAM: 01/20/2017 COMPARISON: CLINICAL HISTORY: Pain, pancreatitis. RUQ pain, NPO EXAM MEASUREMENTS: Liver Length: 14.5 cm Gallbladder Wall: 0.1 cm CBD: 0.3 cm CHD:0.5 cm Spleen: 5.8 cm Right Kidney: 9.0 x 4.2 x 3.2 cm Left Kidney: 8.8 x 4.0 x 3.8 cm Pancreas: Tail obscured by overlying bowel gas. Appears heterogenous. Liver: appears course and echogenic Gallbladder: nonmobile echogenic lesion adjacent to wall = 0.4 cm. Small amount of free fluid seen adjacent to GB and liver Evidence for sonographic Hector's sign: neg CBD: wnl Spleen: appears small. Small amount of free fluid seen adjacent to spleen Right Kidney: wnl. Prominent pyramids Left Kidney: wnl Upper IVC: wnl Abd Aorta: Obscured by overlying bowel gas, limited visualization The visualized liver is heterogeneous. Evaluation for focal masses is suboptimal due to the heterogen eity. The intrahepatic portion of the IVC and visualized abdominal aorta are within normal limits. There is no evidence of shadowing mobile cholelithiasis. A 4 mm nonmobile hyperechoic focus could ref lect small polyp. Small amount of free free fluid near gallbladder fossa and troy hepatis is present . Common bile duct is unremarkable. The visualized portions of the pancreas are heterogeneous and p rominent which could correlate with acute pancreatitis. No adjacent well-formed fluid collection is s een. The spleen is not enlarged. Small amount of fluid inferiorly near spleen is noted. Kidneys are symmetric and free of hydronephrosis. No renal lesions are seen. IMPRESSION: Heterogeneous prominent pancreas is consistent with acute pancreatitis. No ultrasound cleve dence for complication related to acute pancreatitis in particular focal fluid collection on images s aved. Small amount of abdominal ascites is noted.
[2017-01-20] MEDS: SODIUM CHLORIDE 0.9% 1,000 ML IV SCH ×2 (18:10→21:43)
[2017-01-20] MEDS: THIAMINE 100 MG TAB PO SCH (18:11)
[2017-01-20] MEDS ORDERED: SODIUM CHLORIDE 0.9% 1,000 ML IV ONE (20:48)
[2017-01-20] MEDS: MORPHINE SULFATE 4 MG/ML SYRINGE IVP PRN (22:53)
[2017-01-21] MEDS: MORPHINE SULFATE 4 MG/ML SYRINGE IVP PRN ×4 (02:48→23:26)
[2017-01-21] MEDS: SODIUM CHLORIDE 0.9% 1,000 ML IV SCH (02:55)
[2017-01-21 06:35] LABS: Basophils % (A) 0 %; CH 32.9; CHCM 29.7; Eosinophils # (A) 0.1 k/uL (0-0.7); Eosinophils % (A) 1 %; HCT 29.7 % (34.0-46.0); HDW 2.08; Hypochromasia Marked; Luc # (Auto) 0.19; Luc % (Auto) 3; Lymphocytes # (A) 0.7 k/uL (1.0-4.8); Lymphocytes % (A) 9 %; MCH 33.6 pg (25.0-35.0); MCHC 30.2 g/dL (31.0-37.0); MCV 111.2 fL (80.0-100.0); Macrocytosis Marked; Mean Platelet Volume 9.6; Monocytes # (A) 0.5 k/uL (0-1.0); Monocytes % (A) 6 %; Neutrophils # (A) 6.3 k/uL (1.3-7.7); Neutrophils % (A) 81 %; RBC 2.67 m/uL (3.80-5.40); RDW 13.5 % (11.5-15.5); WBC 7.8 k/uL (3.8-10.6)
[2017-01-21 06:58] LABS: Magnesium 1.6 mg/dL (1.6-2.3); Phosphorous 3.8 mg/dL (2.5-4.5); Total Bilirubin 0.3 mg/dL (0.2-1.3); Total Protein 5.9 g/dL (6.3-8.2)
[2017-01-21 07:41] LABS: Manual Review Performed
[2017-01-21] MEDS: THIAMINE 100 MG TAB PO SCH ×2 (13:11→17:57)
--- NOTE | 2017-01-21 14:15 | P.PN ---
Subjective 61-year-old female admitted seconded alcoholic pancreatitis and patient is being monitored for alcohol withdrawals, so far no withdrawals at this time. Patient is hyperchloremic and hyponatremic due to IV normal saline because of which is being changed to half-normal saline. Patient can use to have metabolic acidosis part of which is secondary to hyperchloremia. Patient abdominal pain improved but still has abdominal pain on and off because of which patient will be started on water for today as requested by the patient and if her symptoms were getting worse patient will stop drinking water and will remain nothing by mouth CARDIOVASCULAR: No chest pain, orthopnea, PND, no palpitations, no syncope. PULMONARY: No shortness of breath, no cough, no hemoptysis. GASTROINTESTINAL: As mentioned in HPI, patient denied any diarrhea patient denied any hematemesis hematochezia NEUROLOGICAL: No headaches, no weakness, no numbness. Objective - Vital Signs Vital signs: Vital Signs Temp 96.4 F L 01/21/17 03:00 Pulse 98 01/21/17 12:00 Resp 16 01/21/17 12:00 BP 135/69 01/21/17 08:00 Pulse Ox 100 01/21/17 12:00 Intake & Output 01/20/17 01/21/17 01/21/17 18:59 06:59 18:59 Intake Total 1000 2875 950 Balance 1000 2875 950 Weight 48.5 kg 44.8 kg Intake: IV 2875 800 Sodium Chloride 0.9% 1, 1875 800 000 ml @ 125 mls/hr IV . Q8H STA Rx#:[id number] Sodium Chloride 0.9% 1, 1000 000 ml @ 999 mls/hr IV . Q1H1M ONE Rx#:[id number] Intake, IV Titration 1000 Amount Sodium Chloride 0.9% 1, 100 000 ml @ 125 mls/hr IV . Q8H STA Rx#:[id number] Sodium Chloride 0.9% 1, 900 000 ml @ 999 mls/hr IV . Q1H1M STA Rx#:[id number] Oral 150 Other: # Voids 1 1 - Exam GENERAL: The patient is alert and oriented x3, not in any acute distress. Well developed, well nourished. HEENT: Pupils are round and equally reacting to light. EOMI. No scleral icterus. No conjunctival pallor. Normocephalic, atraumatic. No pharyngeal erythema. No thyromegaly. CARDIOVASCULAR: S1 and S2 present. No murmurs, rubs, or gallops. PULMONARY: Chest is clear to auscultation, no wheezing or crackles. ABDOMEN: Soft, minimal epigastric abdominal tenderness, normoactive bowel sounds. MUSCULOSKELETAL: No joint swelling or deformity. EXTREMITIES: No cyanosis, clubbing, or pedal edema. NEUROLOGICAL: Gross neurological examination did not reveal any focal deficits. SKIN: No rashes. - Labs CBC & Chem 7: 01/21/17 06:09 01/21/17 06:09 Labs: Abnormal Lab Results - Last 24 Hours (Table) 01/21/17 01/21/17 Range/Units 06: 06:09 RBC 2.67 L (3.80-5.40) m/uL Hgb 9.0 L D (11.4-16.0) gm/dL Hct 29.7 L (34.0-46.0) % MCV 111.2 H (80.0-100.0) fL MCHC 30.2 L (31.0-37.0) g/dL Lymphocytes # 0.7 L (1.0-4.8) k/uL Chloride 114 H (98-107) mmol/L Carbon Dioxide 11 L (22-30) mmol/L BUN 33 H (7-17) mg/dL Creatinine 2.07 H (0.52-1.04) mg/dL Glucose 65 L (74-99) mg/dL Calcium 8.0 L (8.4-10.2) mg/dL AST 42 H (14-36) U/L Total Protein 5.9 L (6.3-8.2) g/dL Albumin 3.3 L (3.5-5.0) g/dL Amylase 590 H* (30-110) U/L Lipase 56674 H (23-300) U/L Assessment and Plan Plan: #1 acute pancreatitis: Patient has all alcohol pancreatitis, nothing by mouth him IV fluids. Patient will be switched to half-normal saline #2 systemic inflammatory response syndrome: Secondary to acute pancreatitis. #3 severe tachycardia due to acute pancreatitis and lactic acidosis. Improved now lactic acidosis improved as well #4 anion gap metabolic acidosis: Secondary to lactic acidosis from severe intravascular volume depletion, dehydration and systemic inflammatory response from pancreatitis. Improved, part of metabolic acidosis is secondary to hyperchloremia because of which IV fluids are being changed to D5 half-normal saline. #5 alcohol abuse #6 alcohol withdrawal: Patient will be on Ativan protocol with thiamine multivitamin supplementation. Patient doesn't have withdrawals yet #7 acute renal failure: Prerenal azotemia due to severe dehydration. #8 possible alcoholic gastritis: For which patient is on Protonix #9 hypertension: Patient is hypotensive hold off on antidepressant medications #10 hyperlipidemia She will be transferred to [facility] floor from [facility].
[2017-01-21] MEDS: PANTOPRAZOLE 40 MG/10 ML VIAL IV SCH (15:21)
[2017-01-21] MEDS: DEXTROSE 5%-0.45% NACL 1,000 ML IV SCH ×2 (15:24→23:25)
[2017-01-22] MEDS: MORPHINE SULFATE 4 MG/ML SYRINGE IVP PRN ×5 (05:03→21:45)
--- NOTE | 2017-01-22 06:49 | CONS ---
DATE OF CONSULTATION: 01/21/2017 REASON FOR CONSULTATION: Acute pancreatitis. HISTORY OF PRESENT ILLNESS: The patient is a 61 -year-old pleasant white female admitted to the hospital with acute onset of severe epigastric pain associated with nausea and vomiting that started on Sunday morning. The pain continued to progressively get worse, came into the emergency room and was noted to have elevated amylase and lipase consistent with acute pancreatitis. The patient had a similar episode about six years ago and was told was alcohol related. She quit drinking for two years and then started back again. Presently she drinks about three to four shots of whiskey a day and a beer a day for the last 20 years. She ( ) is feeling better. Has some epigastric pain. The nausea and vomiting has resolved. No rectal bleeding. No melena. No fever, chills or night sweats. Her past medical history is significant for coronary artery disease, hypertension, hyperlipidemia, chronic renal insufficiency, mitral valve regurgitation, prior history of pancreatitis. Past surgical history: ovarian cyst surgery. Medications at home: 1. Aspirin. 2. Lisinopril. 3. Multivitamin. 4. Pravachol. ALLERGIES: None. SOCIAL HISTORY: Chronic smoker. Heavy alcohol use as mentioned earlier. FAMILY HISTORY: Mother has diabetes mellitus. Father had some cancer and diabetes mellitus. REVIEW OF SYSTEMS: CARDIOPULMONARY: No chest pain or shortness of breath. : No hematuria or dysuria. MUSCULOSKELETAL: Unremarkable. SKIN: Unremarkable Endocrine: Unremarkable. Psychiatric: Unremarkable. Neurological: Unremarkable. ENT/Vision: Unremarkable. Constitutional: No recent weight loss. No fevers, chills or night sweats. On physical examination, she appears comfortable, no apparent distress. Vital signs are stable. Blood pressure is 101/61. Pulse rate 102. Temperature 96.4. HEENT: Unremarkable. Conjunctivae pink. Sclerae anicteric. Oral cavity no lesions. Neck no JVD or lymph node enlargement. Chest is clear to auscultation. Heart is regular rate and rhythm. Abdomen is soft. Bowel sounds positive. No organomegaly. Extremities no pedal edema. Skin no rashes. Neurological: Alert and oriented times three. No focal deficits. Labs done at the time of admission to the hospital: WBC 7.2, hemoglobin 11.5, platelets 229. Labs done today: WBC 7, hemoglobin 9. Platelets 167. Amylase 909, lipase is more than 20,000 today. Amylase is 590, lipase is 11,930. ALT/ AST, T-bili, alk phos are all within normal limits. BUN 33, creatinine 2.07. Serum alcohol less than 10. Ultrasound did show heterogenous prominent pancreas consistent with acute pancreatitis. Gallbladder within normal limits. No gallstones. IMPRESSION: This is a lady who presents with epigastric pain associated with nausea and vomiting for the last two days duration and history of heavy alcohol abuse. Noted to have acute elevation of amylase and lipase consistent with acute severe pancreatitis. The patient had an episode of acute pancreatitis about six years ago which was alcohol related. Presently her symptoms are gradually improving. She is noted to have elevated amylase and lipase but normal serum transaminases. Ultrasound of the abdomen did show evidence of changes in the pancreas consistent with acute pancreatitis. RECOMMENDATIONS: 1. Keep NPO except for ice chips. 2. Repeat labs in the morning. 3. Aggressive IV hydration. 4. IV H2 blockers. 5. I had a lengthy discussion with the patient regarding the importance of remaining abstinence from alcohol and at this time we will follow her closely during her hospital stay. Thank you for your consultation. BRENDAN
[2017-01-22] MEDS: PANTOPRAZOLE 40 MG/10 ML VIAL IV SCH (07:34)
[2017-01-22] MEDS: DEXTROSE 5%-0.45% NACL 1,000 ML IV SCH (07:34)
[2017-01-22 09:05] LABS: CH 33.7; CHCM 31.5; HCT 24.9 % (34.0-46.0); HDW 2.16; HGB 7.7 gm/dL (11.4-16.0); MCH 33.4 pg (25.0-35.0); MCV 107.7 fL (80.0-100.0); Macrocytosis Moderate; Mean Platelet Volume 9.1; RBC 2.31 m/uL (3.80-5.40); RDW 13.9 % (11.5-15.5); WBC 5.5 k/uL (3.8-10.6)
[2017-01-22 09:06] LABS: ALT 34 U/L (9-52); AST 30 U/L (14-36); Alkaline Phosphatase 76 U/L (38-126); Anion Gap 8 mmol/L; Blood Urea Nitrogen 18 mg/dL (7-17); Calcium 7.7 mg/dL (8.4-10.2); Carbon Dioxide 19 mmol/L (22-30); Chloride 111 mmol/L (98-107); Glucose 109 mg/dL (74-99); Non-African American GFR(MDRD) >60 (>60 ml/min/1.73 sqM); Potassium 3.4 mmol/L (3.5-5.1); Sodium 138 mmol/L (137-145); Total Bilirubin 0.2 mg/dL (0.2-1.3); Total Protein 4.9 g/dL (6.3-8.2)
[2017-01-22] MEDS: THIAMINE 100 MG TAB PO SCH ×2 (11:15→15:23)
[2017-01-22] MEDS: POTASSIUM CHLORIDE 20 MEQ, LIDOCAINE 2% INJ 20 MG in SODIUM CHLORIDE 0.9% 100 ML IVPB SCH ×2 (13:23→15:23)
--- NOTE | 2017-01-22 14:57 | P.PN ---
Subjective 61-year-old female admitted seconded alcoholic pancreatitis and patient is being monitored for alcohol withdrawals, so far no withdrawals at this time. Patient is hyperchloremic and hyponatremic due to IV normal saline because of which is being changed to half-normal saline. Patient can use to have metabolic acidosis part of which is secondary to hyperchloremia. Patient abdominal pain improved but still has abdominal pain on and off because of which patient will be started on water for today as requested by the patient and if her symptoms were getting worse patient will stop drinking water and will remain nothing by mouth 01/22/2017 Patient has significant drop in hemoglobin compared to admission this is secondary to IV fluid hydration. Patient does not have any clinical signs or symptoms of GI bleed. Patient was quite intravascularly volume depleted on admission with IV fluid resuscitation the hemoglobin has come down from 11.5 to around 7.6. Although patient has chronic anemia due to nutritional deficiency and alcohol abuse. Her abdominal pain significant improved will try and advance her diet disc any IV fluids patient was started on by mouth hydration CARDIOVASCULAR: No chest pain, orthopnea, PND, no palpitations, no syncope. PULMONARY: No shortness of breath, no cough, no hemoptysis. GASTROINTESTINAL: As mentioned in HPI, patient denied any diarrhea patient denied any hematemesis hematochezia NEUROLOGICAL: No headaches, no weakness, no numbness. Objective - Vital Signs Vital signs: Vital Signs Temp 97.8 F 01/22/17 07:00 Pulse 86 01/22/17 07:00 Resp 14 01/22/17 07:00 BP 100/73 01/22/17 07:00 Pulse Ox 95 01/22/17 07:00 Intake & Output 01/21/17 01/22/17 01/22/17 18:59 06:59 18:59 Intake Total 950 120 Balance 950 120 Intake: IV 800 Sodium Chloride 0.9% 1, 800 000 ml @ 125 mls/hr IV . Q8H STA Rx#:[id number] Oral 150 120 Other: Voiding Method Toilet # Voids 1 2 2 - Exam GENERAL: The patient is alert and oriented x3, not in any acute distress. Well developed, well nourished. HEENT: Pupils are round and equally reacting to light. EOMI. No scleral icterus. No conjunctival pallor. Normocephalic, atraumatic. No pharyngeal erythema. No thyromegaly. CARDIOVASCULAR: S1 and S2 present. No murmurs, rubs, or gallops. PULMONARY: Chest is clear to auscultation, no wheezing or crackles. ABDOMEN: Soft, minimal epigastric abdominal tenderness, normoactive bowel sounds. MUSCULOSKELETAL: No joint swelling or deformity. EXTREMITIES: No cyanosis, clubbing, or pedal edema. NEUROLOGICAL: Gross neurological examination did not reveal any focal deficits. SKIN: No rashes. - Labs CBC & Chem 7: 01/22/17 08:18 01/22/17 08:20 Labs: Abnormal Lab Results - Last 24 Hours (Table) 01/22/17 01/22/17 01/22/17 Range/Units 08:18 08:20 08:20 RBC 2.31 L (3.80-5.40) m/uL Hgb 7.7 L (11.4-16.0) gm/dL Hct 24.9 L (34.0-46.0) % MCV 107.7 H (80.0-100.0) fL Plt Count 137 L (150-450) k/uL Potassium 3.4 L (3.5-5.1) mmol/L Chloride 111 H (98-107) mmol/L Carbon Dioxide 19 L (22-30) mmol/L BUN 18 H (7-17) mg/dL Glucose 109 H (74-99) mg/dL Calcium 7.7 L (8.4-10.2) mg/dL Total Protein 4.9 L (6.3-8.2) g/dL Albumin 2.6 L (3.5-5.0) g/dL Amylase 174 H (30-110) U/L Lipase 2501 H (23-300) U/L Assessment and Plan Plan: #1 acute pancreatitis: Patient has all alcohol pancreatitis, improved, was started on diet advance as tolerated and this can you IV fluids #2 systemic inflammatory response syndrome: Secondary to acute pancreatitis. #3 severe tachycardia due to acute pancreatitis and lactic acidosis. Improved now lactic acidosis improved as well #4 anion gap metabolic acidosis: Secondary to lactic acidosis from severe intravascular volume depletion, dehydration and systemic inflammatory response from pancreatitis. Improved, part of metabolic acidosis is secondary to hyperchloremia . #5 alcohol abuse #6 alcohol withdrawal: Patient will be on Ativan protocol with thiamine multivitamin supplementation. Patient doesn't have withdrawals yet #7 acute renal failure: Prerenal azotemia due to severe dehydration. #8 possible alcoholic gastritis: For which patient is on Protonix #9 hypertension: Patient is hypotensive hold off on antidepressant medications #10 hyperlipidemia #11 chronic anemia secondary to alcohol abuse. She has macrocytic anemia #12 drop in hemoglobin secondary to hemodilution effect
[2017-01-23] MEDS: MORPHINE SULFATE 4 MG/ML SYRINGE IVP PRN ×2 (02:39→08:47)
[2017-01-23] MEDS: THIAMINE 100 MG TAB PO SCH (07:44)
[2017-01-23 07:48] VITALS: BP 122/75; PULSE 93; RESP 20; TEMP 98.2
--- NOTE | 2017-01-23 07:52 | P.PN ---
Subjective Principal diagnosis: Alcohol pancreatitis 61-year-old female history of EtOH abuse presents with alcohol pancreatitis. Feels better. Tolerating diet. Morning chemistries pending. Afebrile. Ultrasound Findings consistent with acute pancreatitis with no focal mass or pseudocyst Objective - Vital Signs Vital signs: Vital Signs Temp 98.2 F 01/23/17 07:00 Pulse 93 01/23/17 07:00 Resp 20 01/23/17 07:00 BP 122/75 01/23/17 07:00 Pulse Ox 96 01/23/17 07:00 Intake & Output 01/22/17 01/23/17 01/23/17 18:59 06:59 18:59 Intake Total 675 Balance 675 Intake: Oral 675 Other: Voiding Method Toilet Toilet # Voids 2 2 - Labs CBC & Chem 7: 01/22/17 08:18 01/22/17 08:20 Labs: Abnormal Lab Results - Last 24 Hours (Table) 01/22/17 01/22/17 01/22/17 Range/Units 08:18 08:20 08:20 RBC 2.31 L (3.80-5.40) m/uL Hgb 7.7 L (11.4-16.0) gm/dL Hct 24.9 L (34.0-46.0) % MCV 107.7 H (80.0-100.0) fL Plt Count 137 L (150-450) k/uL Potassium 3.4 L (3.5-5.1) mmol/L Chloride 111 H (98-107) mmol/L Carbon Dioxide 19 L (22-30) mmol/L BUN 18 H (7-17) mg/dL Glucose 109 H (74-99) mg/dL Calcium 7.7 L (8.4-10.2) mg/dL Total Protein 4.9 L (6.3-8.2) g/dL Albumin 2.6 L (3.5-5.0) g/dL Amylase 174 H (30-110) U/L Lipase 2501 H (23-300) U/L
[2017-01-23 08:38] LABS: CH 33.2; CHCM 31.1; HCT 25.4 % (34.0-46.0); MCH 33.8 pg (25.0-35.0); MCHC 31.5 g/dL (31.0-37.0); MCV 107.1 fL (80.0-100.0); Macrocytosis Moderate; Mean Platelet Volume 8.5; RBC 2.37 m/uL (3.80-5.40); RDW 13.7 % (11.5-15.5); WBC 4.2 k/uL (3.8-10.6)
[2017-01-23 08:59] LABS: Anion Gap 9 mmol/L; Blood Urea Nitrogen 10 mg/dL (7-17); Calcium 8.2 mg/dL (8.4-10.2); Carbon Dioxide 19 mmol/L (22-30); Chloride 109 mmol/L (98-107); Glucose 77 mg/dL (74-99); Non-African American GFR(MDRD) >60 (>60 ml/min/1.73 sqM); Potassium 3.8 mmol/L (3.5-5.1); Sodium 137 mmol/L (137-145)
[2017-01-23] MEDS ORDERED: PANTOPRAZOLE 40 MG TABLET PO SCH (09:00)
--- NOTE | 2017-01-23 12:43 | P.DS ---
Providers Date of admission: 01/20/17 13:44 Attending physician: Jori Guidry Consults: 01/20/17 13:44 Consult Physician Urgent Consulting Provider: Zahraa Clement Consult Reason/Comments: pancreatitis Do you want consulting provider notified?: Yes [facility] Course: 61-year-old female admitted seconded alcoholic pancreatitis and patient is being monitored for alcohol withdrawals, so far no withdrawals at this time. Patient is hyperchloremic and hyponatremic due to IV normal saline because of which is being changed to half-normal saline. Patient can use to have metabolic acidosis part of which is secondary to hyperchloremia. Patient abdominal pain improved but still has abdominal pain on and off because of which patient will be started on water for today as requested by the patient and if her symptoms were getting worse patient will stop drinking water and will remain nothing by mouth 01/22/2017 Patient has significant drop in hemoglobin compared to admission this is secondary to IV fluid hydration. Patient does not have any clinical signs or symptoms of GI bleed. Patient was quite intravascularly volume depleted on admission with IV fluid resuscitation the hemoglobin has come down from 11.5 to around 7.6. Although patient has chronic anemia due to nutritional deficiency and alcohol abuse. Her abdominal pain significant improved will try and advance her diet disc any IV fluids patient was started on by mouth hydration 01/23/2017 Patient is tolerating soft diet very well and patient will be discharged today. And patient will not need any of her anti-hypertensive medications. Patient will be discharged on 14 days of Prilosec. Patient's abdominal pain significantly improved does have minimal abdominal pain. PHYSICAL EXAMINATION: GENERAL: The patient is alert and oriented x3, not in any acute distress. Well developed, well nourished. HEENT: Pupils are round and equally reacting to light. EOMI. No scleral icterus. No conjunctival pallor. Normocephalic, atraumatic. No pharyngeal erythema. No thyromegaly. CARDIOVASCULAR: S1 and S2 present. No murmurs, rubs, or gallops. PULMONARY: Chest is clear to auscultation, no wheezing or crackles. ABDOMEN: Soft, nontender, nondistended, normoactive bowel sounds. No palpable organomegaly. MUSCULOSKELETAL: No joint swelling or deformity. EXTREMITIES: No cyanosis, clubbing, or pedal edema. NEUROLOGICAL: Gross neurological examination did not reveal any focal deficits. SKIN: No rashes. #1 acute pancreatitis: Patient has alcohol pancreatitis, improved, being discharged today #2 systemic inflammatory response syndrome: Secondary to acute pancreatitis. #3 severe tachycardia due to acute pancreatitis and lactic acidosis. Improved now lactic acidosis improved as well, resolved now #4 anion gap metabolic acidosis: Secondary to lactic acidosis from severe intravascular volume depletion, dehydration and systemic inflammatory response from pancreatitis. Improved, part of metabolic acidosis is secondary to hyperchloremia . #5 alcohol abuse #6 alcohol withdrawal: No withdrawals during this hospitalization #7 acute renal failure: Prerenal azotemia due to severe dehydration. Resolved now kidney function within normal limits #8 possible alcoholic gastritis: Will be discharged on Prilosec for 14 days #9 hypertension: Will not require any antidepressive medications upon discharge #10 hyperlipidemia #11 chronic anemia secondary to alcohol abuse. She has macrocytic anemia #12 drop in hemoglobin secondary to hemodilution effect Patient Condition at Discharge: Serious Plan - Discharge Summary New Discharge Prescriptions: Discontinued Lisinopril-Hctz 20-25 mg [Zestoretic 20-25] 1 tab PO DAILY No Action Aspirin 81 mg PO DAILY Multivitamins, Thera [Multivitamin (formulary)] 0.5 tab PO BID Pravastatin Sodium [Pravachol] 20 mg PO DAILY Discharge Medication List Aspirin 81 mg PO DAILY 09/11/16 [History] Multivitamins, Thera [Multivitamin (formulary)] 0.5 tab PO BID 09/11/16 [History ] Pravastatin Sodium [Pravachol] 20 mg PO DAILY 09/11/16 [History] Follow up Appointment(s)/Referral(s): [facility], [NON-STAFF] - Ham Velazquez DO [Primary Care Provider] - 01/26/17 (Office closed for lunch , please call for appointment. ) Patient Instructions/Handouts: Pancreatitis (DC) Activity/Diet/Wound Care/Special Instructions: No smoking, cessation information provided. Low fat, soft, bland diet. Discharge Disposition: HOME WITH HOME HEALTH SERVICES
== END 2017-01-23 12:40 | disposition home health service (06) | DRG 439 ==
LOC: EC 12:02 → 6SEL 13:44 → 4MS4W 01-21 20:42
PROVIDERS: ADMIT Internal Medicine; ATTEND Internal Medicine
DX: K85.20 Alcohol induced acute pancreatitis without necrosis or infection (principal); E87.2 Acidosis; N17.9 Acute kidney failure, unspecified; E87.8 Other disorders of electrolyte and fluid balance, not elsewhere classified; I27.2 Other secondary pulmonary hypertension; F10.239 Alcohol dependence with withdrawal, unspecified; E86.0 Dehydration; E78.5 Hyperlipidemia, unspecified; I12.9 Hypertensive chronic kidney disease with stage 1 through stage 4 chronic kidney disease, or unspecified chronic kidney disease; N18.9 Chronic kidney disease, unspecified; D64.9 Anemia, unspecified; E63.9 Nutritional deficiency, unspecified; I25.10 Atherosclerotic heart disease of native coronary artery without angina pectoris; I25.2 Old myocardial infarction; I34.0 Nonrheumatic mitral (valve) insufficiency; F17.200 Nicotine dependence, unspecified, uncomplicated; Z79.82 Long term (current) use of aspirin; Z79.899 Other long term (current) drug therapy
CPT/HCPCS: 36415; 36600; 71020; 74000; 76700; 78582; 80048; 80053; 80320; 82150; 82550; 82553; 82805; 83605; 83690; 83735; 83880; 84100; 84484; 85025; 85027; 85379; 85610; 85730; 93005; 96361; 96372; 96374; 96375; 99285

== ENCOUNTER 2018-05-12 10:49 | Emergency (ER) | payer OTHER ==
[2018-05-12] MEDS ORDERED: SODIUM CHLORIDE 0.9% 500 ML 500 ML IV STA (11:10)
[2018-05-12] MEDS ORDERED: METOCLOPRAMIDE 5 MG/ML 2 ML VIAL IVP STA (11:11)
[2018-05-12] MEDS ORDERED: MECLIZINE 12.5 MG TAB PO STA (11:11)
--- NOTE | 2018-05-12 11:13 | ED ---
General Adult HPI - General Chief complaint: Dizziness Stated complaint: dizzy Time Seen by Provider: 05/12/18 11:05 Source: patient, family, RN notes reviewed Mode of arrival: wheelchair Limitations: no limitations - History of Present Illness Initial comments: Patient is a pleasant 62-year-old female presenting to the emergency Department with complaints of dizziness. Onset of symptoms was during the middle the night. Patient woke with sudden symptoms. Symptoms have been persistent since that time however are starting to improved. Patient did have some blurry vision earlier when symptoms were worse. Vision is normal at this time. Symptoms are mild at this time. Symptoms are positional. Patient describes a spinning type sensation. No headache. No confusion. No speech problems. No weakness. No history of similar symptoms previously. - Related Data Home Medications Medication Instructions Recorded Confirmed Aspirin 81 mg PO DAILY 09/11/16 05/12/18 Pravastatin Sodium [Pravachol] 20 mg PO HS 09/11/16 05/12/18 Cholecalciferol [Vitamin D3] 1,000 unit PO DAILY 05/12/18 05/12/18 Ferrous Sulfate [Feosol] 325 mg PO DAILY 05/12/18 05/12/18 Loratadine [Claritin] 10 mg PO DAILY PRN 05/12/18 05/12/18 Losartan Potassium [Cozaar] 25 mg PO DAILY 05/12/18 05/12/18 Nitroglycerin Sl Tabs [Nitrostat] 0.4 mg SUBLINGUAL Q5M PRN 05/12/18 05/12/18 Omeprazole [PriLOSEC] 40 mg PO DAILY 05/12/18 05/12/18 Allergies Allergy/AdvReac Type Severity Reaction Status Date / Time No Known Allergies Allergy Verified 05/12/18 11:02 Review of Systems ROS Statement: Those systems with pertinent positive or pertinent negative responses have been documented in the HPI. ROS Other: All systems not noted in ROS Statement are negative. Constitutional: Denies: fever Eyes: Denies: eye pain ENT: Denies: ear pain Respiratory: Denies: cough Cardiovascular: Denies: chest pain Endocrine: Denies: fatigue Gastrointestinal: Denies: abdominal pain Genitourinary: Denies: dysuria Musculoskeletal: Denies: back pain Skin: Denies: rash Neurological: Reports: vertigo. Denies: headache, weakness, confusion Past Medical History Past Medical History: Hyperlipidemia, Hypertension, Myocardial Infarction (ND), Renal Disease Additional Past Medical History / Comment(s): leaky vavle - unknown which valve , mild pulmonary hypertension PANCREATITIS Last Myocardial Infarction Date:: 2004 History of Any Multi-Drug Resistant Organisms: None Reported Additional Past Surgical History / Comment(s): cyst removed from ovary Past Anesthesia/Blood Transfusion Reactions: No Reported Reaction Past Psychological History: No Psychological Hx Reported Smoking Status: Light tobacco smoker Past Alcohol Use History: Abuse, Daily Past Drug Use History: None Reported - Past Family History Mother Family Medical History: Diabetes Mellitus Father Family Medical History: Cancer, Diabetes Mellitus General Exam Limitations: no limitations General appearance: alert, in no apparent distress Head exam: Present: atraumatic Eye exam: Present: normal appearance, PERRL, EOMI. Absent: nystagmus ENT exam: Present: normal oropharynx Neck exam: Present: normal inspection Respiratory exam: Present: normal lung sounds bilaterally Cardiovascular Exam: Present: regular rate, normal rhythm GI/Abdominal exam: Present: soft. Absent: tenderness Extremities exam: Present: normal inspection Neurological exam: Present: alert, CN II-XII intact. Absent: motor sensory deficit Expanded Neurological exam: Present: protecting the airway Cranial nerves: EOM's Intact: Normal, Facial Sensation: Normal Cerebellar function: Finger to Nose: Normal Sensory exam: Upper Extremity Light Touch: Normal, Lower Extremity Light Touch: Normal Motor strength exam: RUE: 5, LUE: 5, RLE: 5, LLE: 5 Eye Response: (4) open spontaneously Motor Response: (6) obeys commands Verbal Response: (5) oriented Psychiatric exam: Present: normal affect, normal mood Skin exam: Present: normal color Course Vital Signs 05/12/18 10:54 Temperature 98.1 F Pulse Rate 88 Respiratory 16 Rate Blood Pressure 168/97 O2 Sat by Pulse 100 Oximetry EKG Findings - EKG Comments: EKG Findings:: Normal sinus rhythm at 80. MN 144. QRS 76. QT 386. QTc 445. Left axis. Normal QRS. No acute ST change. Medical Decision Making - Medical Decision Making Patient reevaluated and resting comfortably in bed. Patient symptom free at this time. Patient states she was able to get up and walk around without any difficulty. Patient and family updated on results and need for follow-up. - Lab Data Result diagrams: 05/12/18 11:23 05/12/18 11:23 Lab Results 05/12/18 05/12/18 05/12/18 Range/Units 11:23 11:23 11:23 WBC 6.0 (3.8-10.6) k/uL RBC 3.63 L (3.80-5.40) m/uL Hgb 12.1 (11.4-16.0) gm/dL Hct 35.9 (34.0-46.0) % MCV 99.1 (80.0-100.0) fL MCH 33.5 (25.0-35.0) pg MCHC 33.8 (31.0-37.0) g/dL RDW 13.2 (11.5-15.5) % Plt Count 208 (150-450) k/uL Neutrophils % 69 % Lymphocytes % 22 % Monocytes % 6 % Eosinophils % 2 % Basophils % 0 % Neutrophils # 4.1 (1.3-7.7) k/uL Lymphocytes # 1.3 (1.0-4.8) k/uL Monocytes # 0.3 (0-1.0) k/uL Eosinophils # 0.1 (0-0.7) k/uL Basophils # 0.0 (0-0.2) k/uL PT 9.6 (9.0-12.0) sec INR 1.0 (<1.2) APTT 22.6 (22.0-30.0) sec Sodium 141 (137-145) mmol/L Potassium 4.2 (3.5-5.1) mmol/L Chloride 107 (98-107) mmol/L Carbon Dioxide 25 (22-30) mmol/L Anion Gap 9 mmol/L BUN 24 H (7-17) mg/dL Creatinine 0.64 (0.52-1.04) mg/dL Est GFR (CKD-EPI)AfAm >90 (>60 ml/min/1.73 sqM) Est GFR (CKD-EPI)NonAf >90 (>60 ml/min/1.73 sqM) Glucose 117 H (74-99) mg/dL Calcium 10.4 H (8.4-10.2) mg/dL Total Bilirubin 0.4 (0.2-1.3) mg/dL AST 27 (14-36) U/L ALT 26 (9-52) U/L Alkaline Phosphatase 90 (38-126) U/L Total Protein 7.7 (6.3-8.2) g/dL Albumin 4.4 (3.5-5.0) g/dL - Radiology Data Radiology results: report reviewed (Computed tomography scan of the brain shows atrophy. No acute process.), image reviewed (Chest x-ray shows no acute process ) Disposition Clinical Impression: Vertigo Disposition: HOME SELF-CARE Condition: Stable Instructions: Dizziness (ED) Additional Instructions: [id number] Antivert if needed. Please follow-up with primary care physician in the beginning of the week. Return for increased dizziness, confusion, balance problems, weakness, worsening or changing symptoms or other concerns. Is patient prescribed a controlled substance at d/c from ED?: No Referrals: Ham Velazquez DO [Primary Care Provider] - 1-2 days Time of Disposition: 12:37
[2018-05-12 11:40] LABS: Basophils % (A) 0 %; Eosinophils # (A) 0.1 k/uL (0-0.7); Eosinophils % (A) 2 %; HCT 35.9 % (34.0-46.0); HGB 12.1 gm/dL (11.4-16.0); Lymphocytes # (A) 1.3 k/uL (1.0-4.8); Lymphocytes % (A) 22 %; MCH 33.5 pg (25.0-35.0); MCHC 33.8 g/dL (31.0-37.0); MCV 99.1 fL (80.0-100.0); Monocytes # (A) 0.3 k/uL (0-1.0); Monocytes % (A) 6 %; Neutrophils # (A) 4.1 k/uL (1.3-7.7); Neutrophils % (A) 69 %; Platelet Count 208 k/uL (150-450); RBC 3.63 m/uL (3.80-5.40); RDW 13.2 % (11.5-15.5)
[2018-05-12 11:48] LABS: Partial Thromboplastin Time 22.6 sec (22.0-30.0); Prothrombin Time 9.6 sec (9.0-12.0)
[2018-05-12 11:56] LABS: ALT 26 U/L (9-52); AST 27 U/L (14-36); Albumin 4.4 g/dL (3.5-5.0); Alkaline Phosphatase 90 U/L (38-126); Anion Gap 9 mmol/L; Blood Urea Nitrogen 24 mg/dL (7-17); Calcium 10.4 mg/dL (8.4-10.2); Carbon Dioxide 25 mmol/L (22-30); Chloride 107 mmol/L (98-107); Glucose 117 mg/dL (74-99); Potassium 4.2 mmol/L (3.5-5.1); Sodium 141 mmol/L (137-145); Total Bilirubin 0.4 mg/dL (0.2-1.3); Total Protein 7.7 g/dL (6.3-8.2)
--- NOTE | 2018-05-12 12:07 | XR ---
EXAMINATION TYPE: XR chest 2V DATE OF EXAM: 05/12/2018 COMPARISON: January 202016 HISTORY: Chest pain TECHNIQUE: Frontal and lateral views of the chest are obtained. FINDINGS: There is no focal air space opacity. No evidence for pneumothorax. No pleural effusion. The cardiac silhouette size is within normal limits. The osseous structures are grossly intact. IMPRESSION: 1. No acute cardiopulmonary process.
--- NOTE | 2018-05-12 12:08 | CT ---
EXAMINATION TYPE: CT brain wo con DATE OF EXAM: 05/12/2018 COMPARISON: HISTORY: Neuro deficits CT DLP: 975.[address] of the brain was performed. The ventricles, basal cisterns and sulci overlying the cerebral convexities demonstrate mild enlargem ent. There is no evidence for intracranial hemorrhage or sulcal effacement. There is decreased attenuation about the periventricular white matter and deep white matter of both c erebral hemispheres, compatible with chronic small vessel ischemia. Differential diagnosis does inclu de demyelination. No mass effects are seen.No midline shift. Osseous calvarium is intact. If symptoms persist consider MRI. IMPRESSION: 1. Age related atrophic and chronic small vessel ischemic change without acute intracranial process s een at this time.
[2018-05-12 12:56] VITALS: BP 135/84; PULSE 69; RESP 18; TEMP 97.9
== END 2018-05-12 12:55 | disposition home or self-care (01) ==
LOC: EC 10:49
DX: R42 Dizziness and giddiness (principal); E78.5 Hyperlipidemia, unspecified; I10 Essential (primary) hypertension; I25.2 Old myocardial infarction; I27.20 Pulmonary hypertension, unspecified; F17.200 Nicotine dependence, unspecified, uncomplicated; Z79.82 Long term (current) use of aspirin; Z79.899 Other long term (current) drug therapy
CPT/HCPCS: 36415; 93005; 80053; 85025; 85610; 85730; 71046; 70450; 99284; 96374; 96361; J2765

== ENCOUNTER → 2018-06-24 | Outpatient (CLI) | payer OTHER ==
--- NOTE | 2018-06-25 13:54 | MM ---
Reason for exam: screening (asymptomatic). Baseline mammogram. History: Patient is postmenopausal. Physical Findings: Nurse did not find any significant physical abnormalities on exam. MG Screening Mammo w CAD Bilateral CC and MLO view(s) were taken. The breast tissue is heterogeneously dense. This may lower the sensitivity of mammography. There is benign-appearing round calcifications bilateral. No discrete abnormality These results were verbally communicated with the patient and result sheet given to the patient on 06/24/18. ASSESSMENT: Negative, BI-RAD 1 RECOMMENDATION: Routine screening mammogram of both breasts in 1 year.
== END | disposition home or self-care (01) ==
LOC: RADMAMWWP 12:56
PROVIDERS: ATTEND Family Medicine
DX: Z12.31 Encounter for screening mammogram for malignant neoplasm of breast (principal)
CPT/HCPCS: 77067

== ENCOUNTER 2018-11-27 19:08 | Emergency (ER) | payer OTHER ==
--- NOTE | 2018-11-27 20:11 | ED ---
General Adult HPI - General Chief complaint: Shortness of Breath Stated complaint: Infection Time Seen by Provider: 11/27/18 19:30 Source: patient, RN notes reviewed Mode of arrival: wheelchair Limitations: no limitations - History of Present Illness Initial comments: This is a 62-year-old female who presents emergency Department complaining of an upper respiratory infections last couple of weeks. Patient states she has this a little bit of shortness of breath. Patient also complains of bilateral ear fullness and states that her ability to hear is decreased over the last couple of weeks. Patient denies any fever or chills patient denies any chest pain. Patient denies any sputum production with her cough. Patient denies any sore throat. Patient believes she has a lot of drainage from her sinuses. - Related Data Home Medications Medication Instructions Recorded Confirmed Aspirin 81 mg PO DAILY 09/11/16 11/27/18 Pravastatin Sodium [Pravachol] 20 mg PO HS 09/11/16 11/27/18 Cholecalciferol [Vitamin D3] 1,000 unit PO DAILY 05/12/18 11/27/18 Ferrous Sulfate [Feosol] 325 mg PO DAILY 05/12/18 11/27/18 Loratadine [Claritin] 10 mg PO DAILY PRN 05/12/18 11/27/18 Losartan Potassium [Cozaar] 25 mg PO DAILY 05/12/18 11/27/18 Nitroglycerin Sl Tabs [Nitrostat] 0.4 mg SUBLINGUAL Q5M PRN 05/12/18 11/27/18 Omeprazole [PriLOSEC] 40 mg PO DAILY 05/12/18 11/27/18 Fluticasone Nasal Joshua [Flonase 2 sprays EA NOSTRIL DAILY 11/27/18 11/27/18 Nasal Joshua] Multivitamins, Thera [Multivitamin 1 tab PO DAILY 11/27/18 11/27/18 (formulary)] Previous Rx's Medication Instructions Recorded Azithromycin [Zithromax Tri-Brad] 500 mg PO DAILY #3 tab 11/27/18 Allergies Allergy/AdvReac Type Severity Reaction Status Date / Time No Known Allergies Allergy Verified 11/27/18 19:46 Review of Systems ROS Statement: Those systems with pertinent positive or pertinent negative responses have been documented in the HPI. ROS Other: All systems not noted in ROS Statement are negative. Past Medical History Past Medical History: Hyperlipidemia, Hypertension, Myocardial Infarction ([place]), Renal Disease Additional Past Medical History / Comment(s): leaky vavle - unknown which valve, mild pulmonary hypertension PANCREATITIS Last Myocardial Infarction Date:: 2004 History of Any Multi-Drug Resistant Organisms: None Reported Additional Past Surgical History / Comment(s): cyst removed from ovary Past Anesthesia/Blood Transfusion Reactions: No Reported Reaction Past Psychological History: No Psychological Hx Reported Smoking Status: Current some day smoker Past Alcohol Use History: Abuse, Daily Past Drug Use History: None Reported - Past Family History Mother Family Medical History: Diabetes Mellitus Father Family Medical History: Cancer, Diabetes Mellitus General Exam - General Exam Comments Initial Comments: GENERAL: Patient is well-developed and well-nourished. Patient is nontoxic and well- hydrated and is in no acute distress. ENT: Neck is soft and supple. No significant lymphadenopathy is noted. Oropharynx is clear. Moist mucous membranes. Neck has full range of motion without eliciting any pain. Bilateral cerumen impaction EYES: The sclera were anicteric and conjunctiva were pink and moist. Extraocular movements were intact and pupils were equal round and reactive to light. Eyelids were unremarkable. PULMONARY: Unlabored respirations. Good breath sounds bilaterally. No audible rales rhonchi or wheezing was noted. CARDIOVASCULAR: There is a regular rate and rhythm without any murmurs gallops or rubs. ABDOMEN: Soft and nontender with normal bowel sounds. SKIN: Skin is clear with no lesions or rashes and otherwise unremarkable. NEUROLOGIC: Patient is alert and oriented x3. Cranial nerves II through XII are grossly intact. Motor and sensory are also intact. Normal speech, volume and content. Symmetrical smile. MUSCULOSKELETAL: Normal extremities with adequate strength and full range of motion. LYMPHATICS: No significant lymphadenopathy is noted PSYCHIATRIC: Normal psychiatric evaluation. Limitations: no limitations Course Vital Signs 11/27/18 19:30 Temperature 98.3 F Pulse Rate 103 H Respiratory 20 Rate Blood Pressure 108/69 O2 Sat by Pulse 97 Oximetry Medical Decision Making - Medical Decision Making Chest x-ray shows no acute abnormality Disposition Clinical Impression: Bronchitis, Impacted cerumen of both ears Disposition: HOME SELF-CARE Instructions (If sedation given, give patient instructions): Acute Bronchitis (ED) Prescriptions: Azithromycin [Zithromax Tri-Brad] 500 mg PO DAILY #3 tab Is patient prescribed a controlled substance at d/c from ED?: No Referrals: Ham Velazquez DO [Primary Care Provider] - 1-2 days Time of Disposition: 21:16
[2018-11-27] MEDS ORDERED: cefTRIAXone 1,000 MG VIAL (IM USE) IM STA (21:18)
[2018-11-27 21:50] VITALS: BP 108/62; PULSE 82; RESP 16; TEMP 98.7
--- NOTE | 2018-11-27 21:56 | XR ---
EXAMINATION: XR chest 2V DATE AND TIME: 11/27/2018 9:03 PM CLINICAL INDICATION: PHH; Difficulty breathing TECHNIQUE: Departmental protocol COMPARISON: 05/12/2018 FINDINGS: The lungs are clear. The pleural spaces are negative. The cardiac silhouette is not enlarged. The remainder of the mediastinal silhouette is unremarkable. The skeletal structures and soft tissues are negative for acute findings. IMPRESSION: NO ACUTE PROCESS.
== END 2018-11-27 21:45 | disposition home or self-care (01) ==
LOC: EC 19:08
DX: J40 Bronchitis, not specified as acute or chronic (principal); H61.23 Impacted cerumen, bilateral; I10 Essential (primary) hypertension; E78.5 Hyperlipidemia, unspecified; I25.2 Old myocardial infarction; F17.200 Nicotine dependence, unspecified, uncomplicated; Z79.82 Long term (current) use of aspirin; Z79.899 Other long term (current) drug therapy; Z79.51 Long term (current) use of inhaled steroids
CPT/HCPCS: 71046; 99284; 96372; J0696

== ENCOUNTER 2019-07-02 22:46 | Observation (INO) | payer OTHER ==
[2019-07-02] MEDS ORDERED: SODIUM CHLORIDE 0.9% 500 ML 500 ML IV STA (23:01)
[2019-07-02] MEDS ORDERED: IPRATROPIUM-ALBUTEROL 3 ML NEB INHALATION STA (23:01)
[2019-07-02] MEDS ORDERED: SODIUM CHLORIDE 0.9% 1,000 ML IV STA ×2 (23:01)
--- NOTE | 2019-07-02 23:04 | ED ---
URI HPI - General Chief Complaint: Upper Respiratory Infection Stated Complaint: URI Time Seen by Provider: 07/02/19 23:01 Source: patient, RN notes reviewed, old records reviewed Mode of arrival: ambulatory Limitations: no limitations - History of Present Illness Initial Comments: This is a 63-year-old female ER for evaluation. Patient presents today for evaluation of severe shortness of breath significant congestion no recent travel history or sick contacts. She denies chest pain especially with cough especially with deep breath. Otherwise she's had fevers for about a week increasing mucus production Usama congestion is a long-time history of smoking. MD Complaint: fever, cough -: week(s) Severity: moderate Severity scale (1-10): 5 Quality: sharp Consistency: intermittent Improves With: nothing Worsens With: nothing Context: sick contacts Associated Symptoms: fever, chills, myalgias, chest pain, shortness of breath Treatments Prior to Arrival: none - Related Data Home Medications Medication Instructions Recorded Confirmed Aspirin 81 mg PO DAILY 09/11/16 11/27/18 Pravastatin Sodium [Pravachol] 20 mg PO HS 09/11/16 11/27/18 Cholecalciferol [Vitamin D3] 1,000 unit PO DAILY 05/12/18 11/27/18 Ferrous Sulfate [Feosol] 325 mg PO DAILY 05/12/18 11/27/18 Loratadine [Claritin] 10 mg PO DAILY PRN 05/12/18 11/27/18 Losartan Potassium [Cozaar] 25 mg PO DAILY 05/12/18 11/27/18 Nitroglycerin Sl Tabs [Nitrostat] 0.4 mg SUBLINGUAL Q5M PRN 05/12/18 11/27/18 Omeprazole [PriLOSEC] 40 mg PO DAILY 05/12/18 11/27/18 Fluticasone Nasal Burt [Flonase 2 sprays EA NOSTRIL DAILY 11/27/18 11/27/18 Nasal Burt] Multivitamins, Thera [Multivitamin 1 tab PO DAILY 11/27/18 11/27/18 (formulary)] Previous Rx's Medication Instructions Recorded Azithromycin [Zithromax Tri-Brad] 500 mg PO DAILY #3 tab 11/27/18 Allergies Allergy/AdvReac Type Severity Reaction Status Date / Time No Known Allergies Allergy Verified 07/02/19 22:51 Review of Systems ROS Statement: Those systems with pertinent positive or pertinent negative responses have been documented in the HPI. ROS Other: All systems not noted in ROS Statement are negative. Past Medical History Past Medical History: Hyperlipidemia, Hypertension, Myocardial Infarction ([place]), Renal Disease Additional Past Medical History / Comment(s): leaky vavle - unknown which valve, mild pulmonary hypertension PANCREATITIS Last Myocardial Infarction Date:: 2004 History of Any Multi-Drug Resistant Organisms: None Reported Additional Past Surgical History / Comment(s): cyst removed from ovary Past Anesthesia/Blood Transfusion Reactions: No Reported Reaction Past Psychological History: No Psychological Hx Reported Smoking Status: Current some day smoker Past Alcohol Use History: Abuse, Daily Past Drug Use History: None Reported - Past Family History Mother Family Medical History: Diabetes Mellitus Father Family Medical History: Cancer, Diabetes Mellitus General Exam Limitations: no limitations General appearance: alert, in no apparent distress, anxious Head exam: Present: atraumatic, normocephalic, normal inspection Eye exam: Present: normal appearance, PERRL, EOMI. Absent: scleral icterus, conjunctival injection, periorbital swelling ENT exam: Present: normal exam, mucous membranes dry Neck exam: Present: normal inspection. Absent: tenderness, meningismus, lymphadenopathy Respiratory exam: Present: wheezes, accessory muscle use, decreased breath sounds, prolonged expiratory. Absent: respiratory distress, rales, rhonchi, stridor Cardiovascular Exam: Present: normal rhythm, tachycardia, normal heart sounds. Absent: systolic murmur, diastolic murmur, rubs, gallop, clicks GI/Abdominal exam: Present: soft, normal bowel sounds. Absent: distended, tenderness, guarding, rebound, rigid Extremities exam: Present: normal inspection, full ROM, normal capillary refill. Absent: tenderness, pedal edema, joint swelling, calf tenderness Back exam: Present: normal inspection Neurological exam: Present: alert, oriented X3, CN II-XII intact Psychiatric exam: Present: normal affect, normal mood Skin exam: Present: warm, dry, intact, normal color. Absent: rash Course Vital Signs 07/02/19 07/02/19 07/02/19 22:49 23:23 23:28 Temperature 98.4 F Pulse Rate 122 H 120 H 112 H Respiratory 24 Rate Blood Pressure 133/89 O2 Sat by Pulse 98 Oximetry - Reevaluation(s) Reevaluation #1: 07/03/19 00:16 Medical record is reviewed Reevaluation #2: 07/03/19 00:16 No improvement in symptoms - Consultations Consultation #1: Spoke with AILEEN ji for admission Medical Decision Making - Medical Decision Making 51 female DF for evaluation patient is a for evaluation of severe cough congestion persistent fevers patient does have positive for bronchitis, on exam with positive wheezing. CHEST x-rays nonconclusive, patient be admitted for IV antibiotics. She was discharged to remain shortness of breath - Lab Data Result diagrams: 07/02/19 23:30 07/02/19 23:30 Lab Results 07/02/19 07/02/19 07/02/19 Range/Units 23:30 23:30 23:30 WBC 6.3 (3.8-10.6) k/uL RBC 3.40 L (3.80-5.40) m/uL Hgb 11.8 (11.4-16.0) gm/dL Hct 34.6 (34.0-46.0) % MCV 101.7 H (80.0-100.0) fL MCH 34.8 (25.0-35.0) pg MCHC 34.2 (31.0-37.0) g/dL RDW 13.3 (11.5-15.5) % Plt Count 169 (150-450) k/uL Neutrophils % 79 % Lymphocytes % 14 % Monocytes % 5 % Eosinophils % 1 % Basophils % 0 % Neutrophils # 5.0 (1.3-7.7) k/uL Lymphocytes # 0.9 L (1.0-4.8) k/uL Monocytes # 0.3 (0-1.0) k/uL Eosinophils # 0.1 (0-0.7) k/uL Basophils # 0.0 (0-0.2) k/uL Macrocytosis Slight Sodium 138 (137-145) mmol/L Potassium 3.7 (3.5-5.1) mmol/L Chloride 103 (98-107) mmol/L Carbon Dioxide 19 L (22-30) mmol/L Anion Gap 16 mmol/L BUN 21 H (7-17) mg/dL Creatinine 0.83 (0.52-1.04) mg/dL Est GFR (CKD-EPI)AfAm 88 (>60 ml/min/1.73 sqM) Est GFR (CKD-EPI)NonAf 76 (>60 ml/min/1.73 sqM) Glucose 177 H (74-99) mg/dL Calcium 9.6 (8.4-10.2) mg/dL Magnesium 1.5 L (1.6-2.3) mg/dL Total Bilirubin 0.5 (0.2-1.3) mg/dL AST 34 (14-36) U/L ALT 19 (4-34) U/L Alkaline Phosphatase 117 (38-126) U/L Creatine Kinase 62 (30-135) U/L Troponin I (0.000-0.034) ng/mL NT-Pro-B Natriuret Pep 281 pg/mL Total Protein 7.8 (6.3-8.2) g/dL Albumin 4.6 (3.5-5.0) g/dL 07/02/19 Range/Units 23:30 WBC (3.8-10.6) k/uL RBC (3.80-5.40) m/uL Hgb (11.4-16.0) gm/dL Hct (34.0-46.0) % MCV (80.0-100.0) fL MCH (25.0-35.0) pg MCHC (31.0-37.0) g/dL RDW (11.5-15.5) % Plt Count (150-450) k/uL Neutrophils % % Lymphocytes % % Monocytes % % Eosinophils % % Basophils % % Neutrophils # (1.3-7.7) k/uL Lymphocytes # (1.0-4.8) k/uL Monocytes # (0-1.0) k/uL Eosinophils # (0-0.7) k/uL Basophils # (0-0.2) k/uL Macrocytosis Sodium (137-145) mmol/L Potassium (3.5-5.1) mmol/L Chloride (98-107) mmol/L Carbon Dioxide (22-30) mmol/L Anion Gap mmol/L BUN (7-17) mg/dL Creatinine (0.52-1.04) mg/dL Est GFR (CKD-EPI)AfAm (>60 ml/min/1.73 sqM) Est GFR (CKD-EPI)NonAf (>60 ml/min/1.73 sqM) Glucose (74-99) mg/dL Calcium (8.4-10.2) mg/dL Magnesium (1.6-2.3) mg/dL Total Bilirubin (0.2-1.3) mg/dL AST (14-36) U/L ALT (4-34) U/L Alkaline Phosphatase (38-126) U/L Creatine Kinase (30-135) U/L Troponin I <0.012 (0.000-0.034) ng/mL NT-Pro-B Natriuret Pep pg/mL Total Protein (6.3-8.2) g/dL Albumin (3.5-5.0) g/dL - EKG Data -: EKG Interpreted by Me (EKG shows sinus tachycardia rate of 109, NE 144, QRS 76, QTc 471) - Radiology Data Radiology results: report reviewed (Chest x-rays negative for acute disease), image reviewed Disposition Clinical Impression: Acute bronchitis, COPD with acute exacerbation Disposition: ADMITTED IP TO THIS HOSP Condition: Fair Is patient prescribed a controlled substance at d/c from ED?: No Referrals: Ham Velazquez DO [Primary Care Provider] - 1-2 days
[2019-07-02 23:40] LABS: Basophils % (A) 0 %; Eosinophils # (A) 0.1 k/uL (0-0.7); Eosinophils % (A) 1 %; HCT 34.6 % (34.0-46.0); HGB 11.8 gm/dL (11.4-16.0); Lymphocytes # (A) 0.9 k/uL (1.0-4.8); Lymphocytes % (A) 14 %; MCH 34.8 pg (25.0-35.0); MCHC 34.2 g/dL (31.0-37.0); MCV 101.7 fL (80.0-100.0); Macrocytosis Slight; Mean Platelet Volume 10.4; Monocytes # (A) 0.3 k/uL (0-1.0); Monocytes % (A) 5 %; Neutrophils % (A) 79 %; Platelet Count 169 k/uL (150-450); RDW 13.3 % (11.5-15.5); WBC 6.3 k/uL (3.8-10.6)
[2019-07-02 23:49] LABS: Albumin 4.6 g/dL (3.5-5.0); Calcium 9.6 mg/dL (8.4-10.2); Magnesium 1.5 mg/dL (1.6-2.3); Potassium 3.7 mmol/L (3.5-5.1); Total Bilirubin 0.5 mg/dL (0.2-1.3); Total Protein 7.8 g/dL (6.3-8.2)
--- NOTE | 2019-07-02 23:56 | XR ---
EXAMINATION TYPE: XR chest 2V DATE OF EXAM: 07/02/2019 COMPARISON: 11/27/2018 HISTORY: Short of breath TECHNIQUE: FINDINGS: Heart and mediastinum are normal. Lungs are clear. Diaphragm is normal. Bony thorax appears normal. IMPRESSION: Normal chest. No change.
[2019-07-03] MEDS ORDERED: AZITHROMYCIN 500 MG in SODIUM CHLORIDE 0.9% 250 ML IVPB STA (00:06)
[2019-07-03] MEDS ORDERED: DEXAMETHASONE SOD PHOSPHATE 10 MG/ML 1 ML VIAL IV STA (00:06)
[2019-07-03] MEDS ORDERED: KETOROLAC 30 MG/ML 1 ML VIAL IVP STA (00:06)
[2019-07-03] MEDS ORDERED: IPRATROPIUM-ALBUTEROL 3 ML NEB INHALATION STA (00:06)
[2019-07-03] MEDS ORDERED: methylPREDNISolone SOD SUCCI 125 MG/2 ML VIAL IV STA (00:14)
[2019-07-03] MEDS ORDERED: ONDANSETRON 4 MG/2 ML VIAL IVP STA (00:40)
[2019-07-03] MEDS: SODIUM CHLORIDE 0.9% 1,000 ML IV SCH ×2 (00:47→09:33)
[2019-07-03] MEDS: traMADol 50 MG TAB PO PRN ×2 (02:38→10:54)
[2019-07-03] MEDS ORDERED: methylPREDNISolone SOD SUCCI 125 MG/2 ML VIAL IV SCH (06:00)
[2019-07-03 09:01] LABS: Basophils % (A) 0 %; Eosinophils # (A) 0.1 k/uL (0-0.7); Eosinophils % (A) 2 %; HCT 31.6 % (34.0-46.0); HGB 10.4 gm/dL (11.4-16.0); Lymphocytes # (A) 0.4 k/uL (1.0-4.8); Lymphocytes % (A) 9 %; MCH 33.8 pg (25.0-35.0); MCHC 32.9 g/dL (31.0-37.0); Macrocytosis Slight; Monocytes # (A) 0.1 k/uL (0-1.0); Monocytes % (A) 1 %; Neutrophils # (A) 4.1 k/uL (1.3-7.7); Neutrophils % (A) 88 %; Platelet Count 167 k/uL (150-450); RBC 3.07 m/uL (3.80-5.40); RDW 13.2 % (11.5-15.5); WBC 4.7 k/uL (3.8-10.6)
[2019-07-03] MEDS: IPRATROPIUM-ALBUTEROL 3 ML NEB INHALATION SCH ×3 (09:05→17:05)
[2019-07-03] MEDS ORDERED: ASPIRIN 81 MG PO SCH (09:15)
[2019-07-03] MEDS ORDERED: NITROGLYCERIN SL TABS 0.4 MG TAB SUBLINGUAL PRN (09:15)
[2019-07-03] MEDS ORDERED: CHOLECALCIFEROL 1,000 UNIT TAB PO SCH (09:15)
[2019-07-03 09:18] LABS: African American GFR (CKD) >90 (>60 ml/min/1.73 sqM); Anion Gap 10 mmol/L; Blood Urea Nitrogen 16 mg/dL (7-17); Calcium 8.1 mg/dL (8.4-10.2); Carbon Dioxide 21 mmol/L (22-30); Chloride 107 mmol/L (98-107); Glucose 196 mg/dL (74-99); Magnesium 1.4 mg/dL (1.6-2.3); Non-African American GFR(CKD) >90 (>60 ml/min/1.73 sqM); Potassium 3.8 mmol/L (3.5-5.1); Sodium 138 mmol/L (137-145)
[2019-07-03] MEDS ORDERED: PANTOPRAZOLE 40 MG TABLET PO SCH (09:30)
[2019-07-03] MEDS ORDERED: LOSARTAN 25 MG TAB PO SCH (09:30)
[2019-07-03] MEDS ORDERED: LORATADINE 10 MG TAB PO SCH (09:30)
[2019-07-03] MEDS ORDERED: FERROUS SULFATE 325 MG TAB PO SCH (09:30)
[2019-07-03] MEDS ORDERED: MULTIVITAMINS, THERA 1 EACH TAB PO SCH (09:30)
[2019-07-03] MEDS ORDERED: Magnesium Replacement Protocol 1 EACH MISC MISCELLANE PRN (09:44)
[2019-07-03] MEDS: MAGNESIUM SULFATE-D5W PMX 1 GM in DEXTROSE/WATER 1 100ML.BAG IVPB SCH ×3 (10:54→14:47)
[2019-07-03] MEDS ORDERED: MAGNESIUM SULFATE-D5W PMX 1 GM in DEXTROSE/WATER 1 100ML.BAG IVPB SCH (11:30)
[2019-07-03 11:48] LABS: Glucose,Whole Blood 282 mg/dL (75-99)
--- NOTE | 2019-07-03 12:39 | P.CRDCN ---
History of Present Illness History of present illness: HISTORY OF PRESENTING ILLNESS This is a pleasant 63-year-old female past medical history significant for hypertension, dyslipidemia, chronic nicotine dependence and daily alcohol intake. She follows in the office with Dr. Dolan. We have been asked to see in consultation for chest pain. She presented to the ER with symptoms of sore throat, cough, headache, chest pain and increased shortness of breath. She states the pain in her chest is in the mid-sternal region and is described as ti ght and squeezing. The pain is not worse with deep inspiration or cough. No specific aggravating or alleviating factors. No radiation to the arm, back, neck or jaw. DIAGNOSTICS EKG reveals sinus tachycardia heart rate 109. Chest xray for an acute cardiopulmonary process. Laboratory reviewed, WBC 4.7, hemoglobin 10.4, platelets 138, sodium 138, potassium 3.8, creatinine 0.62, magnesium 1.4, cardiac enzymes negative 2, NT proBNP 281. Current cardiac medications include aspirin 81 mg daily, losartan 25 mg daily and pravastatin 20 mg at bedtime. REVIEW OF SYSTEMS At the time of my exam: CONSTITUTIONAL: Denies fever or chills. CARDIOVASCULAR: Denies chest pain, shortness of breath, orthopnea, PND or palpitations. RESPIRATORY: Denies cough. GASTROINTESTINAL: Denies abdominal pain, diarrhea, constipation, nausea or vomiting. MUSCULOSKELETAL: Denies myalgias. NEUROLOGIC: Denies numbness, tingling or weakness. ENDOCRINE: Denies fatigue, weight change, polydipsia or polyurina. GENITOURINARY: Denies burning, hematuria or urgency with micturation. HEMATOLOGIC: Denies history of anemia or bleeding. PHYSICAL EXAMINATION Blood pressure 132/80 heart rate 95 afebrile and maintaining oxygen saturation on room air. CONSTITUTIONAL: No apparent distress. HEENT: Head is normocephalic. Pupils are equal, round. Sclerae anicteric. Mucous membranes of the mouth are moist. No JVD. No carotid bruit. CHEST EXAMINATION: Lungs are clear to auscultation. No chest wall tenderness is noted on palpation or with deep breathing. Diminished bilaterally. HEART EXAMINATION: Regular rate and rhythm. S1, S2 heard. No murmurs, gallops or rub. ABDOMEN: Soft, nontender. Positive bowel sounds. EXTREMITIES: 2+ peripheral pulses, no lower extremity edema and no calf tenderness. NEUROLOGIC EXAMINATION: Patient is awake, alert and oriented x3. ASSESSMENT Chest pain, atypical. An acute coronary event has been ruled out. Sinus tachycardia Hypomagnesemia Hypertension Dyslipidemia Chronic nicotine dependence Daily alcohol intake PLAN An acute coronary event has been ruled out. Obtain 2-D echocardiogram and Doppler study to assess cardiac structure and function. Perform stress echocardiogram to assess for stress-induced ischemia. Check lipid panel. Replace magnesium per protocol. Recommend smoking and alcohol cessation. Thank you kindly for this consultation. Nurse Practitioner note has been reviewed, I agree with a documented findings and plan of care. Patient was seen and examined. Past Medical History Past Medical History: Hyperlipidemia, Hypertension, Myocardial Infarction ([place]), Renal Disease Additional Past Medical History / Comment(s): leaky vavle - unknown which valve, mild pulmonary hypertension PANCREATITIS Last Myocardial Infarction Date:: 2004 History of Any Multi-Drug Resistant Organisms: None Reported Additional Past Surgical History / Comment(s): cyst removed from ovary Past Anesthesia/Blood Transfusion Reactions: No Reported Reaction Past Psychological History: No Psychological Hx Reported Smoking Status: Current some day smoker Past Alcohol Use History: Abuse, Daily Additional Past Alcohol Use History / Comment(s): PANCREATITIS 10 YR AGO WAS HOSPITALIZED Past Drug Use History: None Reported - Past Family History Mother Family Medical History: Diabetes Mellitus Father Family Medical History: Cancer, Diabetes Mellitus Medications and Allergies Home Medications Medication Instructions Recorded Confirmed Type Aspirin 81 mg PO DAILY 09/11/16 07/03/19 History Pravastatin Sodium [Pravachol] 20 mg PO HS 09/11/16 07/03/19 History Cholecalciferol [Vitamin D3 (25 2,000 unit PO DAILY 05/12/18 07/03/19 History Mcg = 1000 Iu)] Ferrous Sulfate [Iron (65 MG 325 mg PO DAILY 05/12/18 07/03/19 History Elemental)] Loratadine [Claritin] 10 mg PO DAILY 05/12/18 07/03/19 History Losartan Potassium [Cozaar] 25 mg PO DAILY 05/12/18 07/03/19 History Nitroglycerin Sl Tabs [Nitrostat] 0.4 mg SUBLINGUAL Q5M PRN 05/12/18 07/03/19 History Multivitamins, Thera [Multivitamin 1 tab PO DAILY 11/27/18 07/03/19 History (formulary)] Albuterol Inhaler [Ventolin Hfa 1 - 2 puff INHALATION Q6HR PRN #1 07/03/19 Rx Inhaler] inhaler Azithromycin [Zithromax] 500 mg PO Q24H #5 tab 07/03/19 Rx Fluticasone/Salmeterol [Advair 1 inhalation PO BID #1 inhaler 07/03/19 Rx 250-50 Diskus] Omeprazole [PriLOSEC] 20 mg PO AC-BID #60 capsule. 07/03/19 Rx Allergies Allergy/AdvReac Type Severity Reaction Status Date / Time No Known Allergies Allergy Verified 07/03/19 07:42 Physical Exam Vitals: Vital Signs Temp Pulse Pulse Resp BP BP Pulse Ox 07/03/19 09:18 95 07/03/19 09:05 92 97 07/03/19 05:00 97.6 F 93 18 132/80 97 07/03/19 02:43 101 H 22 07/03/19 02:00 98.1 F 101 H 20 150/81 98 07/03/19 01:00 96 07/03/19 00:55 94 07/03/19 00:48 94 18 141/83 98 07/02/19 23:28 112 H 07/02/19 23:23 120 H 07/02/19 22:49 98.4 F 122 H 24 133/89 98 Intake and Output 07/02/19 07/03/19 07/03/19 22:59 06:59 14:59 Other: Voiding Method Toilet # Voids 1 Weight 47.355 kg 47.355 kg Results 07/03/19 08:28 07/03/19 08:28 Cardiac Enzymes 07/02/19 07/02/19 07/03/19 Range/Units 23:30 23:30 08:28 AST 34 (14-36) U/L Troponin I <0.012 <0.012 (0.000-0.034) ng/mL CBC 07/02/19 07/03/19 Range/Units 23:30 08:28 WBC 6.3 4.7 (3.8-10.6) k/uL RBC 3.40 L 3.07 L (3.80-5.40) m/uL Hgb 11.8 10.4 L (11.4-16.0) gm/dL Hct 34.6 31.6 L (34.0-46.0) % Plt Count 169 167 (150-450) k/uL Comprehensive Metabolic Panel 07/02/19 07/03/19 Range/Units 23:30 08:28 Sodium 138 138 (137-145) mmol/L Potassium 3.7 3.8 (3.5-5.1) mmol/L Chloride 103 107 (98-107) mmol/L Carbon Dioxide 19 L 21 L (22-30) mmol/L BUN 21 H 16 (7-17) mg/dL Creatinine 0.83 0.62 (0.52-1.04) mg/dL Glucose 177 H 196 H (74-99) mg/dL Calcium 9.6 8.1 L (8.4-10.2) mg/dL AST 34 (14-36) U/L ALT 19 (4-34) U/L Alkaline Phosphatase 117 (38-126) U/L Total Protein 7.8 (6.3-8.2) g/dL Albumin 4.6 (3.5-5.0) g/dL Current Medications Generic Name Dose Route Start Last Admin Trade Name Freq PRN Reason Stop Dose Admin Albuterol/Ipratropium 3 ml 07/03/19 08:00 07/03/19 09:05 Duoneb 0.5 Mg-3 Mg/3 Ml Soln INHALATION 3 ml RT-QID ALISHA Administration Aspirin 81 mg 07/03/19 09:15 07/03/19 09:32 Aspirin PO 81 mg DAILY ALISHA Administration Azithromycin 500 mg 07/03/19 23:00 Zithromax PO Q24H [facility] Cholecalciferol 2,000 unit 07/03/19 09:15 07/03/19 09:32 Vitamin D3 (25 Mcg = 1000 Iu) PO 2,000 unit DAILY ALISHA Administration Ferrous Sulfate 325 mg 07/03/19 09:30 07/03/19 09:32 Feosol PO 325 mg DAILY ALISHA Administration Sodium Chloride 1,000 mls @ 100 mls/hr 07/03/19 00:15 07/03/19 09:33 Saline 0.9% IV 100 mls/hr .Q10H ALISHA Administration Magnesium Sulfate/Dextrose 1 100 mls @ 100 mls/hr 07/03/19 09:45 07/03/19 10:54 gm/ IV Solution IVPB 07/03/19 12:44 100 mls/hr Q1H ALISHA Administration Insulin Aspart 0 unit 07/03/19 12:30 Novolog SQ ACHS [facility] Protocol Loratadine 10 mg 07/03/19 09:30 07/03/19 09:33 Claritin PO 10 mg DAILY ALISHA Administration Losartan Potassium 25 mg 07/03/19 09:30 07/03/19 09:32 Cozaar PO 25 mg DAILY ALISHA Administration Miscellaneous Information 1 each 07/03/19 09:44 Magnesium Per Protocol MISCELLANE DAILY PRN Per Protocol Protocol Multivitamins 1 each 07/03/19 09:30 07/03/19 09:33 Theragran PO Not Given DAILY [facility] Nitroglycerin 0.4 mg 07/03/19 09:15 Nitrostat SUBLINGUAL Q5M PRN Chest Pain Pantoprazole Sodium 40 mg 07/03/19 09:30 07/03/19 09:33 Protonix PO 40 mg AC-BRKFST [facility] Administration Pravastatin Sodium 20 mg 07/03/19 21:00 Pravachol PO HS [facility] Tramadol HCl 50 mg 07/03/19 02:19 07/03/19 10:54 Ultram PO 50 mg TID PRN Administration Pain/Discomfort Intake and Output 07/02/19 07/03/19 07/03/19 22:59 06:59 14:59 Other: Voiding Method Toilet # Voids 1 Weight 47.355 kg 47.355 kg 07/03/19 08:28 07/03/19 08:28
--- NOTE | 2019-07-03 13:12 | CT ---
EXAMINATION TYPE: CT angio chest DATE OF EXAM: 07/03/2019 COMPARISON: Radiograph 07/02/2019 HISTORY: 63-year-old female shortness of breath, rule out PE, Elevated d-dimer. TECHNIQUE: Contiguous axial scanning of the chest performed with IV Contrast, patient injected with 1 00 mL of Isovue 370. Coronal/sagittal MIP reconstructions performed. CT DLP: 330 mGycm Automated exposure control for dose reduction was used. FINDINGS: Heart normal size without pericardial effusion. No flattening of the interventricular septum reflux o f contrast into the hepatic veins. Three-vessel coronary artery calcifications are present. Aorta normal caliber with mild arch calcifications and bovine configuration to the aortic arch. Low t akeoff of the left vertebral artery. Satisfactory opacification of the pulmonary arterial system without evidence for pulmonary embolus. No thoracic lymphadenopathy. Evaluation of the lung shows no consolidation or pleural effusion. Some strandy atelectasis at the le ft base. Small hiatal hernia. Low-density thickening of the left adrenal gland, possible underlying adrenal hyperplasia. Bones: No osseous destructive process. IMPRESSION: 1. SOME STRANDY LEFT BASILAR ATELECTASIS. NO ACUTE PULMONARY PROCESS OR EVIDENCE FOR PULMONARY EMBOLU S. 2. CAD AND SMALL HIATAL HERNIA.
[2019-07-03 13:13] LABS: Cholesterol 177 mg/dL (<200); HDL Cholesterol 63 mg/dL (40-60); LDL Cholesterol,Calculated 94 mg/dL (0-99); Triglycerides 98 mg/dL (<150)
--- NOTE | 2019-07-03 13:50 | ECHOS ---
STRESS ECHOCARDIOGRAM DATE OF SERVICE: 07/03/2019 INDICATIONS: Chest pain. MEDICATIONS: BASELINE HEART RATE: 80 BASELINE BLOOD PRESSURE: 146/85 MAXIMUM HEART RATE: 151 MAXIMUM BLOOD PRESSURE: 147/76 85% MPHR: 134 100% MPHR: 158 METS: MAXIMUM STAGE REACHED: I TOTAL EXERCISE TIME: 2 minutes CLINICAL INFORMATION: Patient was exercised for a total period of 2 minutes a peak heart rate of 151 was achieved. Maximum blood pressure of 147/76 mmHg was noted. Resting EKG shows normal sinus rhythm with normal ID interval and QRS duration and normal ST-T waves. No ST- segment depression suggestive of ischemia is noted. The baseline echocardiographic images reveals normal left ventricular chamber size with normal left ventricular systolic function. In the immediate postexercise period, normal increase in the wall thickness and contractility is noted. FINAL IMPRESSION: This stress echocardiographic study is negative for stress-induced ischemia. EKG portion of the stress test is not suggestive of ischemia. Patient's exercise tolerance is below average. MMODL / IJN: [id number] /
[2019-07-03] MEDS: INSULIN ASPART (NovoLOG) 100 UNIT/ML VIAL SQ SCH ×2 (14:02→17:23)
--- NOTE | 2019-07-03 14:03 | P.HPIM ---
History of Present Illness patient was a 63-year-old female came in with complains of a cough has been going on for few days it patient is admitted for bronchospasm and wheezing patient was never diagnosed with COPD is comparing of gastroesophageal reflux disease symptoms. Patient denied any fever chills nausea vomiting , chest x-ray did not show any pneumonia on exam patient doesn't have any significant wheezing patient was treated for COPD with systemic steroids on admission steroids will be discontinued. Patient was also complaining of chest pain which appears to be musculoskeletal tightness and squeezing kind of sensation constant appears to be secondary to cough although not reproducible. Because of this cardio evaluated the patient patient completed a stress test which did not show any inducible ischemia they cleared for discharge. I did order a d-dimer because of some pleuritic competent of chest pain which was positive will obtain a computed tomography scan to rule out pulmonary embolism if that's negative patient will be discharged. Patient will not be discharged on any oral steroids because of her recurrent acid reflux symptoms which may have precipitated bronchospasm patient will be discharged on inhaled steroids albuterol and the Prilosec 20 mg twice a day. Patient's troponins are negative EKG did not show any acute ST-T wave changes Review of Systems REVIEW OF SYSTEMS: CONSTITUTIONAL: No fever, no malaise, no fatigue. HEENT: No recent visual problems or hearing problems. Denied any sore throat. CARDIOVASCULAR: orthopnea, PND, no palpitations, no syncope. PULMONARY: , no hemoptysis. GASTROINTESTINAL: No diarrhea, no nausea, no vomiting, no abdominal pain. NEUROLOGICAL: No headaches, no weakness, no numbness. HEMATOLOGICAL: Denies any bleeding or petechiae. GENITOURINARY: Denies any burning micturition, frequency, or urgency. MUSCULOSKELETAL/RHEUMATOLOGICAL: Denies any joint pain, swelling, or any muscle pain. ENDOCRINE: Denies any polyuria or polydipsia. The rest of the 14-point review of systems is negative. Past Medical History Past Medical History: Hyperlipidemia, Hypertension, Myocardial Infarction ([place]), Renal Disease Additional Past Medical History / Comment(s): leaky vavle - unknown which valve, mild pulmonary hypertension PANCREATITIS Last Myocardial Infarction Date:: 2004 History of Any Multi-Drug Resistant Organisms: None Reported Additional Past Surgical History / Comment(s): cyst removed from ovary Past Anesthesia/Blood Transfusion Reactions: No Reported Reaction Past Psychological History: No Psychological Hx Reported Smoking Status: Current some day smoker Past Alcohol Use History: Abuse, Daily Additional Past Alcohol Use History / Comment(s): PANCREATITIS 10 YR AGO WAS HO SPITALIZED Past Drug Use History: None Reported - Past Family History Mother Family Medical History: Diabetes Mellitus Father Family Medical History: Cancer, Diabetes Mellitus Medications and Allergies Home Medications Medication Instructions Recorded Confirmed Type Aspirin 81 mg PO DAILY 09/11/16 07/03/19 History Pravastatin Sodium [Pravachol] 20 mg PO HS 09/11/16 07/03/19 History Cholecalciferol [Vitamin D3 (25 2,000 unit PO DAILY 05/12/18 07/03/19 History Mcg = 1000 Iu)] Ferrous Sulfate [Iron (65 MG 325 mg PO DAILY 05/12/18 07/03/19 History Elemental)] Loratadine [Claritin] 10 mg PO DAILY 05/12/18 07/03/19 History Losartan Potassium [Cozaar] 25 mg PO DAILY 05/12/18 07/03/19 History Nitroglycerin Sl Tabs [Nitrostat] 0.4 mg SUBLINGUAL Q5M PRN 05/12/18 07/03/19 History Multivitamins, Thera [Multivitamin 1 tab PO DAILY 11/27/18 07/03/19 History (formulary)] Albuterol Inhaler [Ventolin Hfa 1 - 2 puff INHALATION Q6HR PRN #1 07/03/19 Rx Inhaler] inhaler Azithromycin [Zithromax] 500 mg PO Q24H #5 tab 07/03/19 Rx Fluticasone/Salmeterol [Advair 1 inhalation PO BID #1 inhaler 07/03/19 Rx 250-50 Diskus] Omeprazole [PriLOSEC] 20 mg PO AC-BID #60 capsule. 07/03/19 Rx Allergies Allergy/AdvReac Type Severity Reaction Status Date / Time No Known Allergies Allergy Verified 07/03/19 07:42 Physical Exam Vitals: Vital Signs Temp Pulse Pulse Resp BP BP Pulse Ox 07/03/19 13:31 85 07/03/19 13:16 88 07/03/19 09:18 95 07/03/19 09:05 92 97 07/03/19 05:00 97.6 F 93 18 132/80 97 07/03/19 02:43 101 H 22 07/03/19 02:00 98.1 F 101 H 20 150/81 98 07/03/19 01:00 96 07/03/19 00:55 94 07/03/19 00:48 94 18 141/83 98 07/02/19 23:28 112 H 07/02/19 23:23 120 H 07/02/19 22:49 98.4 F 122 H 24 133/89 98 Intake and Output 07/02/19 07/03/19 07/03/19 22:59 06:59 14:59 Other: Voiding Method Toilet # Voids 1 Weight 47.355 kg 47.355 kg 47.36 kg PHYSICAL EXAMINATION: GENERAL: The patient is alert and oriented x3, not in any acute distress. Well developed, well nourished. HEENT: Pupils are round and equally reacting to light. EOMI. No scleral icterus. No conjunctival pallor. Normocephalic, atraumatic. does have pharyngeal erythema. No thyromegaly. CARDIOVASCULAR: S1 and S2 present. No murmurs, rubs, or gallops. PULMONARY: Chest is clear to auscultation, no wheezing or crackles. ABDOMEN: Soft, nontender, nondistended, normoactive bowel sounds. No palpable organomegaly. MUSCULOSKELETAL: No joint swelling or deformity. EXTREMITIES: No cyanosis, clubbing, or pedal edema. NEUROLOGICAL: Gross neurological examination did not reveal any focal deficits. SKIN: No rashes. Results CBC & Chem 7: 07/03/19 08:28 07/03/19 08:28 Labs: Abnormal Lab Results - Last 24 Hours (Table) 07/02/19 07/02/19 07/03/19 Range/Units 23:30 23:30 08:28 RBC 3.40 L 3.07 L (3.80-5.40) m/uL Hgb 10.4 L (11.4-16.0) gm/dL Hct 31.6 L (34.0-46.0) % MCV 101.7 H 103.0 H (80.0-100.0) fL Lymphocytes # 0.9 L 0.4 L (1.0-4.8) k/uL D-Dimer (<0.60) mg/L FEU Carbon Dioxide 19 L (22-30) mmol/L BUN 21 H (7-17) mg/dL Glucose 177 H (74-99) mg/dL POC Glucose (mg/dL) (75-99) mg/dL Calcium (8.4-10.2) mg/dL Magnesium 1.5 L (1.6-2.3) mg/dL HDL Cholesterol (40-60) mg/dL 07/03/19 07/03/19 07/03/19 Range/Units 08:28 08:28 08:28 RBC (3.80-5.40) m/uL Hgb (11.4-16.0) gm/dL Hct (34.0-46.0) % MCV (80.0-100.0) fL Lymphocytes # (1.0-4.8) k/uL D-Dimer 1.26 H (<0.60) mg/L FEU Carbon Dioxide 21 L (22-30) mmol/L BUN (7-17) mg/dL Glucose 196 H (74-99) mg/dL POC Glucose (mg/dL) (75-99) mg/dL Calcium 8.1 L (8.4-10.2) mg/dL Magnesium 1.4 L (1.6-2.3) mg/dL HDL Cholesterol 63 H (40-60) mg/dL 07/03/19 Range/Units 11:46 RBC (3.80-5.40) m/uL Hgb (11.4-16.0) gm/dL Hct (34.0-46.0) % MCV (80.0-100.0) fL Lymphocytes # (1.0-4.8) k/uL D-Dimer (<0.60) mg/L FEU Carbon Dioxide (22-30) mmol/L BUN (7-17) mg/dL Glucose (74-99) mg/dL POC Glucose (mg/dL) 282 H (75-99) mg/dL Calcium (8.4-10.2) mg/dL Magnesium (1.6-2.3) mg/dL HDL Cholesterol (40-60) mg/dL Thrombosis Risk Factor Assmnt - Choose All That Apply Any of the Below Risk Factors Present?: Yes Each Factor Represents 1 point: Acute [place] Each Risk Factor Represents 2 Points: Age 61-74 years Thrombosis Risk Factor Assessment Total Risk Factor Score: 3 Thrombosis Risk Factor Assessment Level: Moderate Risk Assessment and Plan Plan: -wheezing and bronchospasm: Patient doesn't have any diagnosis of COPD does smoke will benefit from pulmonary function testing patient will be referred to pulmonology. By the time I valid the patient bronchospasm resolved because of which are not discharged on systemic steroids I believe her bronchospasm is mostly due to gastroesophageal reflux disease,because of which I'll put her on the Prilosec twice a day, inhaled steroids and albuterol. Patient does have redness and sore throat most probably from acid reflux again since I'm discharging the patient I will discharge patient on azithromycin. chest pain most probably musculoskeletal but we'll rule out pulmonary embolism ruled out cardiac causes. -Hypertension -hyperlipidemia
[2019-07-03 17:31] VITALS: BP 133/67; PULSE 94; RESP 15; TEMP 98.1
[2019-07-03] MEDS ORDERED: PRAVASTATIN SODIUM 20 MG TAB PO SCH (21:00)
[2019-07-03] MEDS ORDERED: AZITHROMYCIN 500 MG TAB PO SCH (23:00)
--- NOTE | 2019-07-04 12:01 | ECHOF ---
Referral Reason:cp MEASUREMENTS -------- HEIGHT: 152.4 cm WEIGHT: 47.2 kg BP: RVIDd: 2.8 cm (< 3.3) IVSd: 1.0 cm (0.6 - 1.1) LVIDd: 3.5 cm (3.9 - 5.3) LVPWd: 1.0 cm (0.6 - 1.1) IVSs: 1.2 cm LVIDs: 2.4 cm LVPWs: 1.1 cm LA Diam: 4.5 cm (2.7 - 3.8) LAESV Index (A-L): 29.22 ml/m MV EXCURSION: 18.221 mm (> 18.000) MV EF SLOPE: 120 mm/s (70 - 150) EPSS: 0.2 cm MV E Juan: 0.67 m/s MV DecT: 186 ms MV A Juan: 0.95 m/s MV E/A Ratio: 0.70 RAP: 5.00 mmHg RVSP: 44.00 mmHg FINDINGS -------- Sinus rhythm. This was a technically good study. LV size, wall thickness and systolic function are normal, with an EF greater than 55%. The left jacqui tricular size is normal. Overall left ventricular systolic function is normal with, an EF between 5 5 - 60 %. The right ventricle is normal in size. The left atrium is moderately dilated. LA is moderately dilated 34-39 ml/m2 The right atrial size is normal. There is mild aortic valve sclerosis. There is no evidence of aortic regurgitation. Mild mitral annular calcification present. Mild mitral regurgitation is present. Moderate tricuspid regurgitation present. There is moderate pulmonary hypertension. The right jacqui tricular systolic pressure, as measured by Doppler, is 44.00mmHg. There is no pulmonic regurgitation present. The aortic root size is normal. There is no pericardial effusion. CONCLUSIONS -------- 1. Sinus rhythm. 2. This was a technically good study. 3. LV size, wall thickness and systolic function are normal, with an EF greater than 55%. 4. The left ventricular size is normal. 5. Overall left ventricular systolic function is normal with, an EF between 55 - 60 %. 6. The right ventricle is normal in size. 7. The left atrium is moderately dilated. 8. LA is moderately dilated 34-39 ml/m2 9. The right atrial size is normal. 10. There is mild aortic valve sclerosis. 11. Mild mitral annular calcification present. 12. Mild mitral regurgitation is present. 13. Moderate tricuspid regurgitation present. 14. There is moderate pulmonary hypertension. 15. The right ventricular systolic pressure, as measured by Doppler, is 44.00mmHg. 16. There is no pulmonic regurgitation present. 17. The aortic root size is normal. 18. There is no pericardial effusion. KILN SETTER: Beata Martin RDCS
== END 2019-07-03 17:49 | disposition home or self-care (01) ==
LOC: SUPCPDRO 22:46 → EC 22:46 → 6NMEDSUR 07-03 00:14
PROVIDERS: ADMIT Hospitalist; ATTEND Hospitalist
DX: R06.2 Wheezing (principal); J98.01 Acute bronchospasm; K21.9 Gastro-esophageal reflux disease without esophagitis; R07.89 Other chest pain; E78.5 Hyperlipidemia, unspecified; E83.42 Hypomagnesemia; F17.200 Nicotine dependence, unspecified, uncomplicated; I10 Essential (primary) hypertension; I25.2 Old myocardial infarction; I27.20 Pulmonary hypertension, unspecified; R05 Cough; R51 Headache; R00.0 Tachycardia, unspecified; Z79.899 Other long term (current) drug therapy; Z79.82 Long term (current) use of aspirin; Z83.3 Family history of diabetes mellitus; Z80.9 Family history of malignant neoplasm, unspecified
CPT/HCPCS: 96361 ×2; 96366; 96367; 96365; 96375; 99285; 36415; 94640 ×2; 94760; 93005 ×2; 93306; 93351; 85379; 83880; 80061; 80053; 80048; 82550; 83735 ×2; 84484 ×2; 85025 ×2; 71046; 71275; G0378; J1100; J2930; J2405; J0456; J1885; J3475; Q9967

== ENCOUNTER 2019-07-04 06:05 | Inpatient (IN) | payer OTHER ==
[2019-07-04] MEDS ORDERED: NITROGLYCERIN OINT 1 INCH/GM PACKET TOPICAL STA (06:24)
[2019-07-04 06:34] LABS: Basophils # (A) 0.1 k/uL (0-0.2); Basophils % (A) 1 %; Eosinophils # (A) 0.1 k/uL (0-0.7); Eosinophils % (A) 1 %; HCT 31.4 % (34.0-46.0); HGB 10.3 gm/dL (11.4-16.0); Lymphocytes # (A) 0.6 k/uL (1.0-4.8); Lymphocytes % (A) 6 %; MCH 33.3 pg (25.0-35.0); MCHC 32.7 g/dL (31.0-37.0); MCV 101.9 fL (80.0-100.0); Macrocytosis Slight; Mean Platelet Volume 9.6; Monocytes # (A) 0.6 k/uL (0-1.0); Monocytes % (A) 5 %; Neutrophils # (A) 9.4 k/uL (1.3-7.7); Neutrophils % (A) 86 %; Platelet Count 157 k/uL (150-450); RBC 3.08 m/uL (3.80-5.40); RDW 13.3 % (11.5-15.5); WBC 10.9 k/uL (3.8-10.6)
[2019-07-04 06:47] LABS: ALT 16 U/L (4-34); AST 29 U/L (14-36); African American GFR (CKD) >90 (>60 ml/min/1.73 sqM); Alkaline Phosphatase 91 U/L (38-126); Anion Gap 13 mmol/L; Blood Urea Nitrogen 11 mg/dL (7-17); Calcium 8.3 mg/dL (8.4-10.2); Carbon Dioxide 20 mmol/L (22-30); Chloride 105 mmol/L (98-107); Glucose 143 mg/dL (74-99); Magnesium 2.2 mg/dL (1.6-2.3); Non-African American GFR(CKD) >90 (>60 ml/min/1.73 sqM); Potassium 3.4 mmol/L (3.5-5.1); Sodium 138 mmol/L (137-145); Total Bilirubin 0.4 mg/dL (0.2-1.3)
[2019-07-04 06:50] LABS: INR 0.9 (<1.2); Prothrombin Time 9.8 sec (9.0-12.0)
[2019-07-04 06:51] LABS: Partial Thromboplastin Time 20.8 sec (22.0-30.0)
--- NOTE | 2019-07-04 06:52 | XR ---
EXAMINATION TYPE: XR chest 2V DATE OF EXAM: 07/04/2019 COMPARISON: 07/02/2019 HISTORY: Difficulty breathing. Chest pain TECHNIQUE: FINDINGS: Heart and mediastinum are normal. Lungs are clear. Diaphragm is normal. Bony thorax appears normal. There is no heart failure. IMPRESSION: Normal chest. No change.
--- NOTE | 2019-07-04 07:04 | ED ---
Chest Pain HPI - General Chief Complaint: Chest Pain Stated Complaint: chest pain Time Seen by Provider: 07/04/19 06:11 Source: patient, EMS, RN notes reviewed Mode of arrival: EMS Limitations: no limitations - History of Present Illness Initial Comments: 63-year-old female presents emergency department via EMS chief complaint of chest pain. Patient was discharged yesterday for COPD this patient, chest pain. Patient did have a stress test which was unremarkable. Patient states that this pain woke her up around 1 AM patient was given aspirin, nitro by EMS she states that the nitro greatly improved her symptoms. Patient denies any prior heart attack.. Patient does admit that she has COPD, hyperlipidemia, hypertension. - Related Data Home Medications Medication Instructions Recorded Confirmed Aspirin 81 mg PO DAILY 09/11/16 07/03/19 Pravastatin Sodium [Pravachol] 20 mg PO HS 09/11/16 07/03/19 Cholecalciferol [Vitamin D3 (25 2,000 unit PO DAILY 05/12/18 07/03/19 Mcg = 1000 Iu)] Ferrous Sulfate [Iron (65 MG 325 mg PO DAILY 05/12/18 07/03/19 Elemental)] Loratadine [Claritin] 10 mg PO DAILY 05/12/18 07/03/19 Losartan Potassium [Cozaar] 25 mg PO DAILY 05/12/18 07/03/19 Nitroglycerin Sl Tabs [Nitrostat] 0.4 mg SUBLINGUAL Q5M PRN 05/12/18 07/03/19 Multivitamins, Thera [Multivitamin 1 tab PO DAILY 11/27/18 07/03/19 (formulary)] Previous Rx's Medication Instructions Recorded Albuterol Inhaler [Ventolin Hfa 1 - 2 puff INHALATION Q6HR PRN #1 07/03/19 Inhaler] inhaler Azithromycin [Zithromax] 500 mg PO Q24H #5 tab 07/03/19 Fluticasone/Salmeterol [Advair 1 inhalation PO BID #1 inhaler 07/03/19 250-50 Diskus] Omeprazole [PriLOSEC] 20 mg PO AC-BID #60 capsule. 07/03/19 Allergies Allergy/AdvReac Type Severity Reaction Status Date / Time No Known Allergies Allergy Verified 07/03/19 07:42 Review of Systems ROS Statement: Those systems with pertinent positive or pertinent negative responses have been documented in the HPI. ROS Other: All systems not noted in ROS Statement are negative. EKG Findings - EKG Comments: EKG Findings:: EKG performed at 6:24 normal sinus rhythm rate of 84 OK 136 QRS 80 QT status QTC 390/460. Repeat EKG performed at 17:19 normal sinus rhythm rate of 100 OK 138 QRS 72 QT status QTC 374/482 Past Medical History Past Medical History: Hyperlipidemia, Hypertension, Myocardial Infarction ([place]), Renal Disease Additional Past Medical History / Comment(s): leaky vavle - unknown which valve, mild pulmonary hypertension PANCREATITIS Last Myocardial Infarction Date:: 2004 History of Any Multi-Drug Resistant Organisms: None Reported Additional Past Surgical History / Comment(s): cyst removed from ovary Past Anesthesia/Blood Transfusion Reactions: No Reported Reaction Past Psychological History: No Psychological Hx Reported Smoking Status: Current some day smoker Past Alcohol Use History: Abuse, Daily Past Drug Use History: None Reported - Past Family History Mother Family Medical History: Diabetes Mellitus Father Family Medical History: Cancer, Diabetes Mellitus General Exam General appearance: alert, in no apparent distress Head exam: Present: atraumatic, normocephalic, normal inspection Eye exam: Present: normal appearance, PERRL, EOMI. Absent: scleral icterus, conjunctival injection, periorbital swelling ENT exam: Present: normal exam, normal oropharynx, mucous membranes moist, TM's normal bilaterally Neck exam: Present: normal inspection, full ROM. Absent: tenderness, meningismus, lymphadenopathy Respiratory exam: Present: normal lung sounds bilaterally. Absent: respiratory distress, wheezes, rales, rhonchi, stridor Cardiovascular Exam: Present: regular rate, normal rhythm, normal heart sounds. Absent: systolic murmur, diastolic murmur, rubs, gallop, clicks Back exam: Absent: CVA tenderness (R), CVA tenderness (L) Neurological exam: Present: alert, oriented X3, CN II-XII intact Skin exam: Present: warm, dry, intact, normal color. Absent: rash Course Vital Signs 07/04/19 07/04/19 07/04/19 06:08 06:16 07:16 Temperature 98.6 F Pulse Rate 86 96 Pulse Rate [ 82 Spectroscopist ] Respiratory 18 22 Rate Blood Pressure 141/89 165/108 O2 Sat by Pulse 97 100 Oximetry Chest Pain MDM - MDM Patient's labs, EKG reviewed no acute findings on EKG, chest x-ray unremarkable patient's lipase is elevated patient has acute pancreatitis she does have a history of this. Patient will be admitted at this time for acute pancreatitis, chest pain. Disposition Clinical Impression: Chest pain, Acute pancreatitis Disposition: ADMITTED IP TO THIS HOSP Condition: Fair Referrals: Ham Velazquez DO [Primary Care Provider] - 1-2 days
[2019-07-04] MEDS ORDERED: NITROGLYCERIN SL TABS 0.4 MG TAB SUBLINGUAL STA (07:11)
[2019-07-04] MEDS ORDERED: SODIUM CHLORIDE 0.9% 1,000 ML IV ONE (07:23)
[2019-07-04] MEDS ORDERED: HEPARIN SODIUM,PORCINE 5,000 UNIT/ML 1 ML VIAL IV ONE (07:23)
[2019-07-04] MEDS ORDERED: HEPARIN SODIUM,PORCINE 5,000 UNIT/ML 1 ML VIAL IV PRN (07:23)
[2019-07-04] MEDS ORDERED: NITROGLYCERIN SL TABS 0.4 MG TAB SUBLINGUAL PRN ×2 (07:23→11:21)
[2019-07-04] MEDS ORDERED: HEPARIN SOD,PORK IN 0.45% NACL 25,000 UNIT in 0.45% NACL 1 250ML.BAG IV SCH (07:30)
[2019-07-04] MEDS ORDERED: ONDANSETRON 4 MG/2 ML VIAL IVP STA (08:01)
[2019-07-04] MEDS ORDERED: MORPHINE SULFATE 4 MG/ML SYRINGE IVP STA (08:01)
[2019-07-04] MEDS: ONDANSETRON 4 MG/2 ML VIAL IVP PRN ×2 (08:11→12:13)
[2019-07-04] MEDS: MORPHINE SULFATE 4 MG/ML SYRINGE IVP PRN ×4 (08:12→22:51)
[2019-07-04] MEDS: SODIUM CHLORIDE 0.9% 1,000 ML IV SCH ×2 (09:06→22:52)
[2019-07-04] MEDS ORDERED: amLODIPine 5 MG TAB PO SCH (10:15)
[2019-07-04] MEDS ORDERED: Potassium Replacement Protocol 1 EACH MISC MISCELLANE PRN (10:25)
[2019-07-04] MEDS ORDERED: ALBUTEROL NEBULIZED 2.5 MG/3 ML INHALATION PRN (11:21)
[2019-07-04] MEDS ORDERED: NICOTINE 14MG/24HR PATCH TRANSDERM STA (12:04)
[2019-07-04] MEDS: PANTOPRAZOLE 40 MG/10 ML VIAL IVP SCH (12:13)
[2019-07-04] MEDS: POTASSIUM CHLORIDE ER 20 MEQ TAB.ER PO SCH ×2 (12:21→14:00)
[2019-07-04] MEDS: METOPROLOL TARTRATE 12.5 MG TAB PO SCH ×2 (12:21→20:30)
--- NOTE | 2019-07-04 12:35 | P.HPIM ---
History of Present Illness 7-year-old female came in with the comments of epigastric abdominal pain severe nausea vomiting found to have pancreatitis with a highly elevated lipase. Patient was discharged from my service as today she was treated for bronchospasm which I believe didn't use by gastroesophageal reflux disease. As today she denied using any excess alcohol. Patient apparently drinks about 4 beers a day which she admitted to the medical staff specialist. Patient does smoke half a pack per day. Patient is trying to quit smoking. Patient is severely nauseous and is complaining of for severe epigastric abdominal pain radiating to the back. Patient will remain nothing by mouth with IV fluids at 1 50 mL/h Review of Systems REVIEW OF SYSTEMS: CONSTITUTIONAL: No fever, no malaise, no fatigue. HEENT: No recent visual problems or hearing problems. Denied any sore throat. CARDIOVASCULAR: No chest pain, orthopnea, PND, no palpitations, no syncope. PULMONARY: No shortness of breath, no cough, no hemoptysis. GASTROINTESTINAL: As mentioned in HPI NEUROLOGICAL: No headaches, no weakness, no numbness. HEMATOLOGICAL: Denies any bleeding or petechiae. GENITOURINARY: Denies any burning micturition, frequency, or urgency. MUSCULOSKELETAL/RHEUMATOLOGICAL: Denies any joint pain, swelling, or any muscle pain. ENDOCRINE: Denies any polyuria or polydipsia. The rest of the 14-point review of systems is negative. Past Medical History Past Medical History: Asthma, GERD/Reflux, Hyperlipidemia, Hypertension, Myocardial Infarction ([place]), Osteoarthritis ([place]) Additional Past Medical History / Comment(s): Pt recently admitted to [facility] on 07/03/19 with bronchospasms/wheezing. Other hx: Asthma as a child, pt states she was told she had an NV at some time per testing, leaky heart valve-pt does no recall which valve, pancreatitis 10 yrs ago, gastric ulcer yrs ago, arthritis l thumb, l knee pain Last Myocardial Infarction Date:: unkn History of Any Multi-Drug Resistant Organisms: None Reported Past Surgical History: Tonsillectomy, Tubal Ligation Additional Past Surgical History / Comment(s): Ovarian cystectomy-pt cannot recall laterallity, colonoscopy, teeth extractions. Past Anesthesia/Blood Transfusion Reactions: No Reported Reaction Additional Past Anesthesia/Blood Transfusion Reaction / Comment(s): Pt has received blood in past without reaction. Smoking Status: Current every day smoker - Past Family History Mother Family Medical History: Diabetes Mellitus Additional Family Medical History / Comment(s): Back problems. Father Family Medical History: Diabetes Mellitus Medications and Allergies Home Medications Medication Instructions Recorded Confirmed Type Aspirin 81 mg PO DAILY 09/11/16 07/04/19 History Pravastatin Sodium [Pravachol] 20 mg PO HS 09/11/16 07/04/19 History Cholecalciferol [Vitamin D3 (25 2,000 unit PO DAILY 05/12/18 07/04/19 History Mcg = 1000 Iu)] Ferrous Sulfate [Iron (65 MG 325 mg PO DAILY 05/12/18 07/04/19 History Elemental)] Loratadine [Claritin] 10 mg PO DAILY 05/12/18 07/04/19 History Losartan Potassium [Cozaar] 25 mg PO DAILY 05/12/18 07/04/19 History Nitroglycerin Sl Tabs [Nitrostat] 0.4 mg SUBLINGUAL Q5M PRN 05/12/18 07/04/19 History Multivitamins, Thera [Multivitamin 1 tab PO DAILY 11/27/18 07/04/19 History (formulary)] Azithromycin [Zithromax] 500 mg PO Q24H #5 tab 07/03/19 07/04/19 Rx Omeprazole [PriLOSEC] 20 mg PO AC-BID #60 capsule. 07/03/19 07/04/19 Rx Albuterol Inhaler [Ventolin Hfa 2 puff INHALATION RT-Q6H PRN 07/04/19 07/04/19 History Inhaler] Fluticasone/Salmeterol [Advair 1 puff INHALATION RT-BID 07/04/19 07/04/19 History 250-50 Diskus] Allergies Allergy/AdvReac Type Severity Reaction Status Date / Time No Known Allergies Allergy Verified 07/04/19 07:39 Physical Exam Vitals: Vital Signs Temp Pulse Pulse Resp BP BP Pulse Ox 07/04/19 12:00 97.9 F 81 155/79 97 07/04/19 10:10 97.7 F 81 18 155/79 97 07/04/19 08:07 156/94 98 07/04/19 07:16 96 22 165/108 100 07/04/19 06:16 82 07/04/19 06:08 98.6 F 86 18 141/89 97 Intake and Output 07/03/19 07/04/19 07/04/19 22:59 06:59 14:59 Other: Weight 47.174 kg 47.174 kg PHYSICAL EXAMINATION: GENERAL: The patient is alert and oriented x3, is in severe distress because of nausea. Well developed, well nourished. HEENT: Pupils are round and equally reacting to light. EOMI. No scleral icterus. No conjunctival pallor. Normocephalic, atraumatic. No pharyngeal erythema. No thyromegaly. CARDIOVASCULAR: S1 and S2 present. No murmurs, rubs, or gallops. PULMONARY: Chest is clear to auscultation, no wheezing or crackles. ABDOMEN: Soft, there is tenderness in the epigastric area nondistended, normoactive bowel sounds. No palpable organomegaly. MUSCULOSKELETAL: No joint swelling or deformity. EXTREMITIES: No cyanosis, clubbing, or pedal edema. NEUROLOGICAL: Gross neurological examination did not reveal any focal deficits. SKIN: No rashes. Results CBC & Chem 7: 07/04/19 06:22 07/04/19 06:22 Labs: Abnormal Lab Results - Last 24 Hours (Table) 07/04/19 07/04/19 07/04/19 Range/Units 06:22 06:22 06:22 WBC 10.9 H (3.8-10.6) k/uL RBC 3.08 L (3.80-5.40) m/uL Hgb 10.3 L (11.4-16.0) gm/dL Hct 31.4 L (34.0-46.0) % MCV 101.9 H (80.0-100.0) fL Neutrophils # 9.4 H (1.3-7.7) k/uL Lymphocytes # 0.6 L (1.0-4.8) k/uL APTT 20.8 L (22.0-30.0) sec Potassium 3.4 L (3.5-5.1) mmol/L Carbon Dioxide 20 L (22-30) mmol/L Glucose 143 H (74-99) mg/dL Calcium 8.3 L (8.4-10.2) mg/dL Lipase 4770 H (23-300) U/L Thrombosis Risk Factor Assmnt - Choose All That Apply Any of the Below Risk Factors Present?: Yes Other Risk Factors: Yes Each Risk Factor Represents 2 Points: Age 61-74 years Other congenital or acquired thrombophilia - If yes, enter type in comment: No Thrombosis Risk Factor Assessment Total Risk Factor Score: 2 Thrombosis Risk Factor Assessment Level: Low Risk Assessment and Plan Plan: 7 acute on chronic pancreatitis: Patient will remain nothing by mouth alcohol cessation counseling was provided patient the will be evaluated by gastr oenterology. --COPD possible without any acute exacerbation -Chest pain which is again secondary to gastroesophageal reflux disease or pancreatitis rule out a concurrent syndromes and patient was evaluated by cardiology and patient doesn't appear to have any cardiac chest pain -Hypertension -Hyperlipidemia -Alcohol abuse and nicotine abuse: Counseling was provided -DVT prophylaxis was obtained.
--- NOTE | 2019-07-04 14:29 | CONS ---
CONSULTATION Mrs. Kayla Escudero is a 63-year-old lady who was seen recently by Dr. VC Dolan, who also performed a stress echo yesterday. His consultation was yesterday and a stress echo was yesterday. Consult did not reveal any significant issues. She came in with what seems to be very atypical pain, had a stress echo, but did not walk very long and stress echo was negative for ischemia at a heart rate of 151 beats per minute and about 3 minutes of exercise. She had atypical chest pain, electrolyte imbalance, hypertension, hyperlipidemia with history of chronic nicotine dependence. Please refer to the detailed consultation by Dr. VC Dolan and a stress echo which was negative for ischemia. She went home and came back and this time complains of epigastric discomfort. Her lipase is over 4000 and she has no chest pain to suggest angina. Vitals are stable. EKG does not reveal any acute findings to indicate ischemia. Her troponin level is also within normal limits. Her lipase is over 4000. On examination, vitals are stable, blood pressure is 150/70, pulse rate 81 per minute. HEENT: Unremarkable. Fundus was not examined by me. Neck is supple. There is no JVD. I do not hear a carotid bruit. Heart exam reveals S1, S2. No significant murmurs. Lungs reveal diminished air entry. Scattered rhonchi. Abdomen is soft. There is mild epigastric tenderness. Bowel sounds are normal. Lower extremities reveal palpable pulses. No edema. Central nervous system is normal. IMPRESSION: 1. Acute pancreatitis with elevated lipase. 2. Atypical chest pain with a negative stress echo yesterday. 3. History of smoking and chronic obstructive pulmonary disease. RECOMMENDATIONS: I am recommending that she should have a GI consult. Will initiate her on amlodipine and metoprolol combination. We will move her to medical floor and we will see her as needed. Thank you very much for the consult. MMODL / IJN: [id number] /
[2019-07-04] MEDS: PRAVASTATIN SODIUM 20 MG TAB PO SCH (20:30)
[2019-07-04] MEDS: HEPARIN SODIUM,PORCINE 5,000 UNIT/ML 1 ML VIAL SQ SCH (20:30)
[2019-07-04] MEDS: SYMBICORT 80-4.5 MCG INHALER INHALATION SCH (21:24)
--- NOTE | 2019-07-05 00:25 | P.CONS ---
History of Present Illness - Reason for Consult Consult date: 07/04/19 Pancreatitis Requesting physician: Jori Guidry - Chief Complaint Abdominal pain - History of Present Illness 63-year-old female with multiple medical comorbidities including osteoarthritis, hyperlipidemia, hypertension, coronary artery disease and prior episodes of pancreatitis presented to the hospital with complaints of severe abdominal pain. Patient reports pain in her upper abdomen and chest radiating across her abdomen and chest. Pain was severe in nature. Patient reported associated nausea and vomiting with the pain. Previously the patient had been admitted for occult pancreatitis in 2017 but denies any recent alcohol use. Patient also uses tobacco products. On presentation to the hospital patient was found to have a WBC 10.9, hemoglobin 10.3, platelet count 157,000, INR 0.9, total bilirubin 0.4, alkaline phosphatase 91, AST 29, ALT 16, triglycerides 43, lipase 4770. She has history of colonoscopy within the past few years which she believ es was normal. Review of Systems REVIEW OF SYSTEMS: CONSTITUTIONAL: Denies any fevers, chills, weight change or fatigue. CARDIOVASCULAR: Denies any chest pain, palpitations high or low blood pressures RESPIRATORY: Denies any shortness of breath, hemoptysis or cough. GENITOURINARY: No dysuria or hematuria. MUSCULOSKELETAL: No weakness reported. SKIN: Denies any new rashes or lesions, jaundice or pallor. PSYCHIATRIC: Denies any depression or anxiety. NEUROLOGY: Denies headache, denies any new focal deficits. EARS/NOSE/THROAT: No recent hearing change, congestion, nasal discharge or sore throat. EYES: No pain in eyes, discharge or change in vision. GASTROINTESTINAL: As per HPI. Past Medical History Past Medical History: Asthma, GERD/Reflux, Hyperlipidemia, Hypertension, Myocardial Infarction ([place]), Osteoarthritis (OA) Additional Past Medical History / Comment(s): Pt recently admitted to [facility] on 07/03/19 with bronchospasms/wheezing. Other hx: Asthma as a child, pt states she was told she had an [place] at some time per testing, leaky heart valve-pt does n o recall which valve, pancreatitis 10 yrs ago, gastric ulcer yrs ago, arthritis l thumb, l knee pain Last Myocardial Infarction Date:: unkn History of Any Multi-Drug Resistant Organisms: None Reported Past Surgical History: Tonsillectomy, Tubal Ligation Additional Past Surgical History / Comment(s): Ovarian cystectomy-pt cannot recall laterallity, colonoscopy, teeth extractions. Past Anesthesia/Blood Transfusion Reactions: No Reported Reaction Additional Past Anesthesia/Blood Transfusion Reaction / Comm: Pt has received blood in past without reaction. Smoking Status: Current every day smoker - Past Family History Mother Family Medical History: Diabetes Mellitus Additional Family Medical History / Comment(s): Back problems. Father Family Medical History: Diabetes Mellitus Medications and Allergies Home Medications Medication Instructions Recorded Confirmed Type Aspirin 81 mg PO DAILY 09/11/16 07/04/19 History Pravastatin Sodium [Pravachol] 20 mg PO HS 09/11/16 07/04/19 History Cholecalciferol [Vitamin D3 (25 2,000 unit PO DAILY 05/12/18 07/04/19 History Mcg = 1000 Iu)] Ferrous Sulfate [Iron (65 MG 325 mg PO DAILY 05/12/18 07/04/19 History Elemental)] Loratadine [Claritin] 10 mg PO DAILY 05/12/18 07/04/19 History Losartan Potassium [Cozaar] 25 mg PO DAILY 05/12/18 07/04/19 History Nitroglycerin Sl Tabs [Nitrostat] 0.4 mg SUBLINGUAL Q5M PRN 05/12/18 07/04/19 History Multivitamins, Thera [Multivitamin 1 tab PO DAILY 11/27/18 07/04/19 History (formulary)] Azithromycin [Zithromax] 500 mg PO Q24H #5 tab 07/03/19 07/04/19 Rx Omeprazole [PriLOSEC] 20 mg PO AC-BID #60 capsule. 07/03/19 07/04/19 Rx Albuterol Inhaler [Ventolin Hfa 2 puff INHALATION RT-Q6H PRN 07/04/19 07/04/19 History Inhaler] Fluticasone/Salmeterol [Advair 1 puff INHALATION RT-BID 07/04/19 07/04/19 History 250-50 Diskus] Allergies Allergy/AdvReac Type Severity Reaction Status Date / Time No Known Allergies Allergy Verified 07/04/19 07:39 Physical Exam Vitals: Vital Signs Temp Pulse Pulse Resp BP BP Pulse Ox 07/04/19 12:00 97.9 F 81 155/79 97 07/04/19 10:10 97.7 F 81 18 155/79 97 01/17/20 08:07 156/94 98 07/04/19 07:16 96 22 165/108 100 07/04/19 06:16 82 07/04/19 06:08 98.6 F 86 18 141/89 97 Intake and Output 07/03/19 07/04/19 07/04/19 22:59 06:59 14:59 Other: Weight 47.174 kg 47.174 kg On physical examination, patient appears comfortable in no apparent distress. HEAD: Normocephalic, atraumatic. EYES: No scleral icterus. No conjunctival injection. MOUTH: No lesions, tongue midline. NECK: Trachea midline, no gross abnormalities. CHEST: Clear to auscultation with no wheezing or rhonchi appreciated. HEART: Regular rate and rhythm. ABDOMEN: Soft, tender to palpation. Bowel sounds are positive. No organomegaly. No guarding or rigidity. EXTREMITIES: No pedal edema. SKIN: No rashes, no jaundice. NEUROLOGIC: Alert and oriented x3. No focal deficits. Results CBC & Chem 7: 07/04/19 06:22 07/04/19 06:22 Labs: Abnormal Lab Results - Last 24 Hours (Table) 07/04/19 07/04/19 07/04/19 Range/Units 06:22 06:22 06:22 WBC 10.9 H (3.8-10.6) k/uL RBC 3.08 L (3.80-5.40) m/uL Hgb 10.3 L (11.4-16.0) gm/dL Hct 31.4 L (34.0-46.0) % MCV 101.9 H (80.0-100.0) fL Neutrophils # 9.4 H (1.3-7.7) k/uL Lymphocytes # 0.6 L (1.0-4.8) k/uL APTT 20.8 L (22.0-30.0) sec Potassium 3.4 L (3.5-5.1) mmol/L Carbon Dioxide 20 L (22-30) mmol/L Glucose 143 H (74-99) mg/dL Calcium 8.3 L (8.4-10.2) mg/dL Lipase 4770 H (23-300) U/L Chest x-ray: report reviewed (Normal chest x-ray) Assessment and Plan (1) Acute pancreatitis Narrative/Plan: 63-year-old feple medical comorbidities including prior episode of acute alcoholic pancreatitis who presents to the hospital with complaints of chest and abdominal pain and found to have acute elevation in her lipase at 4770. Patient denies any current excessive alcohol use. Continues use tobacco products. Triglycerides within normal limits. Currently she is being treated for acute pancreatitis. Current Visit: Yes Status: Acute Code(s): K85.90 - ACUTE PANCREATITIS WITHOUT NECROSIS OR INFECTION, UNSP SNOMED Code(s): 989439437 Plan: Supportive care Nothing by mouth Advance to low-fat diet as tolerated Continue to monitor CBC, CMP Ultrasound abdomen was ordered HELENE and IgG subclasses ordered Continue IV fluids Continue pain control Continue to monitor her symptomatically Patient has been educated on tobacco cessation as tobacco products in exacerbate pancreatitis Thank you for allowing us to participate in the care of the patient we will continue to follow
[2019-07-05] MEDS: SODIUM CHLORIDE 0.9% 1,000 ML IV SCH ×4 (05:43→19:32)
[2019-07-05] MEDS: MORPHINE SULFATE 4 MG/ML SYRINGE IVP PRN ×3 (05:54→19:25)
[2019-07-05 07:36] LABS: Mean Platelet Volume 9.4; Platelet Count 135 k/uL (150-450)
[2019-07-05 07:47] LABS: ALT 12 U/L (4-34); AST 23 U/L (14-36); African American GFR (CKD) >90 (>60 ml/min/1.73 sqM); Albumin 3.3 g/dL (3.5-5.0); Alkaline Phosphatase 72 U/L (38-126); Amylase 115 U/L (30-110); Anion Gap 9 mmol/L; Blood Urea Nitrogen 4 mg/dL (7-17); Calcium 7.7 mg/dL (8.4-10.2); Carbon Dioxide 21 mmol/L (22-30); Chloride 107 mmol/L (98-107); Glucose 79 mg/dL (74-99); Non-African American GFR(CKD) >90 (>60 ml/min/1.73 sqM); Potassium 3.4 mmol/L (3.5-5.1); Sodium 137 mmol/L (137-145); Total Bilirubin 0.5 mg/dL (0.2-1.3); Triglycerides 124 mg/dL (<150)
[2019-07-05] MEDS: METOPROLOL TARTRATE 12.5 MG TAB PO SCH ×2 (08:19→20:59)
[2019-07-05] MEDS: NICOTINE 14MG/24HR PATCH TRANSDERM SCH (08:19)
[2019-07-05] MEDS: PANTOPRAZOLE 40 MG/10 ML VIAL IVP SCH (08:20)
[2019-07-05] MEDS: HEPARIN SODIUM,PORCINE 5,000 UNIT/ML 1 ML VIAL SQ SCH ×2 (08:20→20:58)
[2019-07-05] MEDS: SYMBICORT 80-4.5 MCG INHALER INHALATION SCH ×2 (08:55→20:53)
[2019-07-05] MEDS ORDERED: ASPIRIN 325 MG TAB PO SCH (09:00)
[2019-07-05] MEDS: LOSARTAN 25 MG TAB PO SCH (09:39)
--- NOTE | 2019-07-05 09:48 | US ---
EXAMINATION TYPE: US abdomen complete DATE OF EXAM: 07/05/2019 COMPARISON: Previous study dated 01/20/2017. CLINICAL HISTORY: Pancreatitis, abdominal pain. EXAM MEASUREMENTS: Liver Length: 13.6 cm Gallbladder Wall: 0.2 cm CBD: 0.5 cm Spleen: 8.1 cm Right Kidney: 9.2 x 5.1 x 4.1 cm Left Kidney: 9.1 x 5.9 x 5.0 cm Pancreas: coarse/heterogeneous appearance Liver: wnl Gallbladder: small mobile shadowing stone seen = 0.2cm Evidence for sonographic Hector's sign: no CBD: wnl Spleen: heterogeneous appearance Right Kidney: No hydronephrosis or masses seen Left Kidney: No hydronephrosis or masses seen Upper IVC: wnl Abd Aorta: ectatic appearance to upper aorta with Transverse size at 2.47cm;intimal wall thickening in distal aorta and into BRYN vessels The pancreas is poorly visualized. The liver is normal in size without biliary dilatation. There is a small stone within the gallbladder. Gallbladder wall measures 2 mm. The spleen is normal in size. There is some atheromatous irregularity of the abdominal aorta which remains normal in size. The dist al common hepatic duct measures 5 mm. The right kidney is unremarkable. The left kidney is unremarkable. IMPRESSION: CHOLELITHIASIS.
[2019-07-05] MEDS: ASPIRIN 81 MG PO SCH (11:19)
--- NOTE | 2019-07-05 15:41 | P.PN ---
Subjective Admitted for acute pancreatitis. Possibly alcoholic pancreatitis and ultrasound did show cholelithiasis general surgery will be consulted. Patient is feeling better hungry 180 patient was started on full liquid diet will advance as tolerated. Abdominal pain significant improved nausea resolved Constitutional: Denied any fatigue denied any fever. Cardio vascular: denied any chest pain, palpitations Gastrointestinal denied any nausea vomiting Pulmonary: Denied any shortness of breath cough Neurologic denied any new focal deficits All inpatient medications were reviewed and appropriate changes in these medications as dictated in the interval history and assessment and plan. Objective - Vital Signs Vital signs: Vital Signs Temp 98.8 F 07/05/19 12:23 Pulse 78 07/05/19 12:23 Resp 17 07/05/19 12:23 BP 130/82 07/05/19 12:23 Pulse Ox 98 07/05/19 12:23 Intake & Output 07/04/19 07/05/19 07/05/19 18:59 06:59 18:59 Intake Total 1200 1200 Balance 1200 1200 Weight 47.174 kg 47.174 kg Intake: Intake, IV Titration 1200 1200 Amount Sodium Chloride 0.9% 1, 1200 1200 000 ml @ 150 mls/hr IV . Q6H40M [facility] Rx#:[id number] Other: Voiding Method Toilet Toilet # Voids 1 - Exam PHYSICAL EXAMINATION: GENERAL: The patient is alert and oriented x3, not in any acute distress. Well developed, well nourished. HEENT: Pupils are round and equally reacting to light. EOMI. No scleral icterus. No conjunctival pallor. Normocephalic, atraumatic. No pharyngeal erythema. No thyromegaly. CARDIOVASCULAR: S1 and S2 present. No murmurs, rubs, or gallops. PULMONARY: Chest is clear to auscultation, no wheezing or crackles. ABDOMEN: Soft, nontender, nondistended, normoactive bowel sounds. No palpable organomegaly. MUSCULOSKELETAL: No joint swelling or deformity. EXTREMITIES: No cyanosis, clubbing, or pedal edema. NEUROLOGICAL: Gross neurological examination did not reveal any focal deficits. SKIN: No rashes. - Labs CBC & Chem 7: 07/05/19 06:28 07/05/19 06:28 Labs: Abnormal Lab Results - Last 24 Hours (Table) 07/05/19 07/05/19 Range/Units 06:28 06:28 Plt Count 135 L (150-450) k/uL Potassium 3.4 L (3.5-5.1) mmol/L Carbon Dioxide 21 L (22-30) mmol/L BUN 4 L (7-17) mg/dL Creatinine 0.48 L (0.52-1.04) mg/dL Calcium 7.7 L (8.4-10.2) mg/dL Total Protein 6.0 L (6.3-8.2) g/dL Albumin 3.3 L (3.5-5.0) g/dL Amylase 115 H (30-110) U/L Lipase 1269 H (23-300) U/L Assessment and Plan Plan: 7 acute pancreatitis patient does have history of alcohol was on does have gallstones as well IV fluids will be switched to 75 mL per hour patient was started on diet general surgery will be consulted as mentioned above --COPD possible without any acute exacerbation -Chest pain which is again secondary to gastroesophageal reflux disease or pancreatitis rule out a concurrent syndromes and patient was evaluated by cardiology and patient doesn't appear to have any cardiac chest pain -Hypertension -Hyperlipidemia -Alcohol abuse and nicotine abuse: Counseling was provided -DVT prophylaxis was obtained.
[2019-07-05 15:50] VITALS: BMI 21.2
--- NOTE | 2019-07-05 21:09 | P.PN ---
Subjective Progress Note Date: 07/05/19 Principal diagnosis: Acute pancreatitis, abdominal pain Patient is seen lying in bed reporting abdominal pain is improved. Asking for diet to be advanced. Objective - Vital Signs Vital signs: Vital Signs Temp 98.3 F 07/05/19 05:00 Pulse 98 07/05/19 05:00 Resp 18 07/05/19 05:00 BP 137/83 07/05/19 05:00 Pulse Ox 94 L 07/05/19 05:00 Intake & Output 07/04/19 07/05/19 07/05/19 18:59 06:59 18:59 Intake Total 1200 Balance 1200 Weight 47.174 kg Intake: Intake, IV Titration 1200 Amount Sodium Chloride 0.9% 1, 1200 000 ml @ 150 mls/hr IV . Q6H40M [facility] Rx#:[id number] Other: Voiding Method Toilet Toilet # Voids 1 - Exam On physical examination, patient appears comfortable in no apparent distress. HEAD: Normocephalic, atraumatic. EYES: No scleral icterus. No conjunctival injection. MOUTH: No lesions, tongue midline. NECK: Trachea midline, no gross abnormalities. ABDOMEN: Soft, less tender to palpation. Bowel sounds are positive. No organomegaly. No guarding or rigidity. EXTREMITIES: No pedal edema. SKIN: No rashes, no jaundice. NEUROLOGIC: Alert and oriented x3. No focal deficits. - Labs CBC & Chem 7: 07/05/19 06:28 07/05/19 06:28 Labs: Abnormal Lab Results - Last 24 Hours (Table) 07/05/19 07/05/19 Range/Units 06:28 06:28 Plt Count 135 L (150-450) k/uL Potassium 3.4 L (3.5-5.1) mmol/L Carbon Dioxide 21 L (22-30) mmol/L BUN 4 L (7-17) mg/dL Creatinine 0.48 L (0.52-1.04) mg/dL Calcium 7.7 L (8.4-10.2) mg/dL Total Protein 6.0 L (6.3-8.2) g/dL Albumin 3.3 L (3.5-5.0) g/dL Amylase 115 H (30-110) U/L Lipase 1269 H (23-300) U/L Assessment and Plan (1) Acute pancreatitis Narrative/Plan: 63-year-old feple medical comorbidities including prior episode of acute alcoho lic pancreatitis who presents to the hospital with complaints of chest and abdominal pain and found to have acute elevation in her lipase at 4770. Patient denies any current excessive alcohol use. Continues use tobacco products. Triglycerides within normal limits. Currently she is being treated for acute pancreatitis. Current Visit: Yes Status: Acute Code(s): K85.90 - ACUTE PANCREATITIS WITHOUT NECROSIS OR INFECTION, UNSP SNOMED Code(s): 846081545 Plan: Supportive care Advance to low-fat diet as tolerated Continue to monitor CBC, CMP Ultrasound abdomen was ordered HELENE and IgG subclasses ordered Continue IV fluids Continue pain control Continue to monitor her symptomatically Patient has been educated on tobacco cessation as tobacco products in exacerbate pancreatitis Thank you for allowing us to participate in the care of the patient
[2019-07-05] MEDS: PRAVASTATIN SODIUM 20 MG TAB PO SCH (22:05)
[2019-07-06] MEDS: MORPHINE SULFATE 4 MG/ML SYRINGE IVP PRN (00:05)
[2019-07-06 07:35] LABS: Mean Platelet Volume 9.3; Platelet Count 154 k/uL (150-450)
[2019-07-06] MEDS: HEPARIN SODIUM,PORCINE 5,000 UNIT/ML 1 ML VIAL SQ SCH ×2 (08:10→20:13)
[2019-07-06] MEDS: NICOTINE 14MG/24HR PATCH TRANSDERM SCH (08:10)
[2019-07-06] MEDS: PANTOPRAZOLE 40 MG/10 ML VIAL IVP SCH (08:11)
[2019-07-06] MEDS: ASPIRIN 81 MG PO SCH (08:11)
[2019-07-06] MEDS: LOSARTAN 25 MG TAB PO SCH (08:11)
[2019-07-06] MEDS: SODIUM CHLORIDE 0.9% 1,000 ML IV SCH ×2 (08:11→23:35)
[2019-07-06] MEDS: METOPROLOL TARTRATE 12.5 MG TAB PO SCH ×2 (08:11→20:13)
[2019-07-06] MEDS: SYMBICORT 80-4.5 MCG INHALER INHALATION SCH ×2 (09:38→20:22)
--- NOTE | 2019-07-06 12:06 | P.GSCN ---
History of Present Illness Consult date: 07/06/19 Reason for Consult: Right upper quadrant pain History of present illness: This is a 63-year-old female who is minimal hospital for gallstone pancreatitis. Patient was worked up found have gallstones. Patient's pain has resolved. Past Medical History Past Medical History: Asthma, GERD/Reflux, Hyperlipidemia, Hypertension, Myocardial Infarction ([place]), Osteoarthritis (OA) Additional Past Medical History / Comment(s): Pt recently admitted to [facility] on 07/03/19 with bronchospasms/wheezing. Other hx: Asthma as a child, pt states she was told she had an [place] at some time per testing, leaky heart valve-pt does no recall which valve, pancreatitis 10 yrs ago, gastric ulcer yrs ago, arthritis l thumb, l knee pain Last Myocardial Infarction Date:: unkn History of Any Multi-Drug Resistant Organisms: None Reported Past Surgical History: Tonsillectomy, Tubal Ligation Additional Past Surgical History / Comment(s): Ovarian cystectomy-pt cannot recall laterallity, colonoscopy, teeth extractions. Past Anesthesia/Blood Transfusion Reactions: No Reported Reaction Additional Past Anesthesia/Blood Transfusion Reaction / Comm: Pt has received blood in past without reaction. Smoking Status: Current every day smoker - Past Family History Mother Family Medical History: Diabetes Mellitus Additional Family Medical History / Comment(s): Back problems. Father Family Medical History: Diabetes Mellitus Medications and Allergies Home Medications Medication Instructions Recorded Confirmed Type Aspirin 81 mg PO DAILY 09/11/16 07/04/19 History Pravastatin Sodium [Pravachol] 20 mg PO HS 09/11/16 07/04/19 History Cholecalciferol [Vitamin D3 (25 2,000 unit PO DAILY 05/12/18 07/04/19 History Mcg = 1000 Iu)] Ferrous Sulfate [Iron (65 MG 325 mg PO DAILY 05/12/18 07/04/19 History Elemental)] Loratadine [Claritin] 10 mg PO DAILY 05/12/18 07/04/19 History Losartan Potassium [Cozaar] 25 mg PO DAILY 05/12/18 07/04/19 History Nitroglycerin Sl Tabs [Nitrostat] 0.4 mg SUBLINGUAL Q5M PRN 05/12/18 07/04/19 History Multivitamins, Thera [Multivitamin 1 tab PO DAILY 11/27/18 07/04/19 History (formulary)] Azithromycin [Zithromax] 500 mg PO Q24H #5 tab 07/03/19 07/04/19 Rx Omeprazole [PriLOSEC] 20 mg PO AC-BID #60 capsule. 07/03/19 07/04/19 Rx Albuterol Inhaler [Ventolin Hfa 2 puff INHALATION RT-Q6H PRN 07/04/19 07/04/19 History Inhaler] Fluticasone/Salmeterol [Advair 1 puff INHALATION RT-BID 07/04/19 07/04/19 History 250-50 Diskus] Allergies Allergy/AdvReac Type Severity Reaction Status Date / Time No Known Allergies Allergy Verified 07/04/19 07:39 Surgical - Exam Vital Signs Temp Pulse Resp BP Pulse Ox 98.6 F 86 18 141/89 97 07/04/19 06:08 07/04/19 06:08 07/04/19 06:08 07/04/19 06:08 07/04/19 06:08 - General well developed, well nourished, no distress - Eyes PERRL - ENT normal pinna - Neck no masses - Respiratory normal expansion - Cardiovascular Rhythm: regular - Abdomen Minimal left upper quadrant tenderness Abdomen: soft Results - Labs 07/06/19 06:51 07/05/19 06:28 - Imaging US - abdomen: report reviewed (gall stones) Assessment and Plan Assessment: Quadrant pain History of gallstone pancreas Patient will undergo laparoscopic cholecystectomy in the a.m.
--- NOTE | 2019-07-06 14:24 | P.DS ---
Providers Date of admission: 07/04/19 07:55 Attending physician: Kashmir Galeano Consults: 07/04/19 07:23 Consult Physician Urgent Consulting Provider: Rehan Allen Consult Reason/Comments: chest pain Do you want consulting provider notified?: Yes 07/05/19 15:39 Consult Physician Routine Consulting Provider: Norman Villar Consult Reason/Comments: pancreatitis and cholelithiasis Do you want consulting provider notified?: Yes [facility] Course: Admitted for acute pancreatitis. Possibly alcoholic pancreatitis and ultrasound did show cholelithiasis general surgery will be consulted. Patient is feeling better hungry 180 patient was started on full liquid diet will advance as tolerated. Abdominal pain significant improved nausea resolved 07/06/2019 Patient is clinically doing well abdominal pain resolved patient's diet is advanced patient is supposed to undergo cholecystectomy tomorrow scheduled for surgery by Dr. Js coleman but patient wanted to follow up with the surgery as an outpatient. Patient will be discharged today has per her request. PHYSICAL EXAMINATION: GENERAL: The patient is alert and oriented x3, not in any acute distress. Well developed, well nourished. HEENT: Pupils are round and equally reacting to light. EOMI. No scleral icterus. No conjunctival pallor. Normocephalic, atraumatic. No pharyngeal erythema. No thyromegaly. CARDIOVASCULAR: S1 and S2 present. No murmurs, rubs, or gallops. PULMONARY: Chest is clear to auscultation, no wheezing or crackles. ABDOMEN: Soft, nontender, nondistended, normoactive bowel sounds. No palpable organomegaly. MUSCULOSKELETAL: No joint swelling or deformity. EXTREMITIES: No cyanosis, clubbing, or pedal edema. NEUROLOGICAL: Gross neurological examination did not reveal any focal deficits. SKIN: No rashes. Assessment and Plan Plan: 7 acute pancreatitis patient does have history of alcohol was on does have gallstones, improved now --COPD possible without any acute exacerbation -Chest pain which is again secondary to gastroesophageal reflux disease or pancreatitis rule out a concurrent syndromes patient has recent stress test whic h was negative -Hypertension -Hyperlipidemia -Alcohol abuse and nicotine abuse: Counseling was provided -DVT prophylaxis was obtained. Patient Condition at Discharge: Fair Plan - Discharge Summary Discharge Rx Participant: No New Discharge Prescriptions: Continue Aspirin 81 mg PO DAILY Pravastatin Sodium [Pravachol] 20 mg PO HS Nitroglycerin Sl Tabs [Nitrostat] 0.4 mg SUBLINGUAL Q5M PRN PRN Reason: Chest Pain Losartan Potassium [Cozaar] 25 mg PO DAILY Loratadine [Claritin] 10 mg PO DAILY Ferrous Sulfate [Iron (65 MG Elemental)] 325 mg PO DAILY Cholecalciferol [Vitamin D3 (25 Mcg = 1000 Iu)] 2,000 unit PO DAILY Multivitamins, Thera [Multivitamin (formulary)] 1 tab PO DAILY Omeprazole [PriLOSEC] 20 mg PO AC-BID #60 capsule. Albuterol Inhaler [Ventolin Hfa Inhaler] 2 puff INHALATION RT-Q6H PRN PRN Reason: Shortness Of Breath Or Wheezing Fluticasone/Salmeterol [Advair 250-50 Diskus] 1 puff INHALATION RT-BID Discontinued Azithromycin [Zithromax] 500 mg PO Q24H #5 tab Discharge Medication List Aspirin 81 mg PO DAILY 09/11/16 [History] Pravastatin Sodium [Pravachol] 20 mg PO HS 09/11/16 [History] Cholecalciferol [Vitamin D3 (25 Mcg = 1000 Iu)] 2,000 unit PO DAILY 05/12/18 [History] Ferrous Sulfate [Iron (65 MG Elemental)] 325 mg PO DAILY 05/12/18 [History] Loratadine [Claritin] 10 mg PO DAILY 05/12/18 [History] Losartan Potassium [Cozaar] 25 mg PO DAILY 05/12/18 [History] Nitroglycerin Sl Tabs [Nitrostat] 0.4 mg SUBLINGUAL Q5M PRN 05/12/18 [History] Multivitamins, Thera [Multivitamin (formulary)] 1 tab PO DAILY 11/27/18 [History] Omeprazole [PriLOSEC] 20 mg PO AC-BID #60 capsule. 07/03/19 [Rx] Albuterol Inhaler [Ventolin Hfa Inhaler] 2 puff INHALATION RT-Q6H PRN 07/04/19 [History] Fluticasone/Salmeterol [Advair 250-50 Diskus] 1 puff INHALATION RT-BID 07/04/19 [History] Follow up Appointment(s)/Referral(s): Alonso Sim MD [Medical Doctor] - 1 Week Ham Velazquez DO [Primary Care Provider] - 07/10/19 10:20 am ([facility]) Discharge Disposition: HOME SELF-CARE
[2019-07-06] MEDS: PRAVASTATIN SODIUM 20 MG TAB PO SCH (20:13)
[2019-07-06 20:41] VITALS: RESP 18
[2019-07-07 04:14] VITALS: BP 143/81; PULSE 93
[2019-07-07 05:40] VITALS: TEMP 99.3
[2019-07-07 06:28] LABS: Mean Platelet Volume 9.2; Platelet Count 167 k/uL (150-450)
[2019-07-07] MEDS: METOPROLOL TARTRATE 12.5 MG TAB PO SCH (07:53)
[2019-07-07] MEDS: HEPARIN SODIUM,PORCINE 5,000 UNIT/ML 1 ML VIAL SQ SCH (07:54)
[2019-07-07] MEDS: LOSARTAN 25 MG TAB PO SCH (07:54)
[2019-07-07] MEDS: NICOTINE 14MG/24HR PATCH TRANSDERM SCH (07:54)
[2019-07-07] MEDS: ASPIRIN 81 MG PO SCH (07:54)
[2019-07-07] MEDS: SYMBICORT 80-4.5 MCG INHALER INHALATION SCH (07:55)
[2019-07-07 08:46] LABS: IgG Subclass 3 26.2 mg/dL (11.0-85.0); IgG Subclass 4 3.9 mg/dL (3.0-175.0)
[2019-07-07] MEDS ORDERED: PANTOPRAZOLE 40 MG TABLET PO SCH (09:00)
[2019-07-07 10:21] LABS: Basophils % (A) 0 %; Eosinophils # (A) 0.1 k/uL (0-0.7); Eosinophils % (A) 2 %; HCT 29.9 % (34.0-46.0); HGB 10.2 gm/dL (11.4-16.0); Lymphocytes # (A) 1.1 k/uL (1.0-4.8); Lymphocytes % (A) 26 %; MCH 34.6 pg (25.0-35.0); MCHC 34.1 g/dL (31.0-37.0); MCV 101.4 fL (80.0-100.0); Macrocytosis Slight; Monocytes # (A) 0.4 k/uL (0-1.0); Monocytes % (A) 9 %; Neutrophils # (A) 2.7 k/uL (1.3-7.7); Neutrophils % (A) 61 %; RBC 2.95 m/uL (3.80-5.40); RDW 13.1 % (11.5-15.5); WBC 4.3 k/uL (3.8-10.6)
[2019-07-07 10:28] LABS: African American GFR (CKD) >90 (>60 ml/min/1.73 sqM); Anion Gap 8 mmol/L; Blood Urea Nitrogen 5 mg/dL (7-17); Calcium 9.1 mg/dL (8.4-10.2); Carbon Dioxide 21 mmol/L (22-30); Chloride 109 mmol/L (98-107); Glucose 105 mg/dL (74-99); Non-African American GFR(CKD) >90 (>60 ml/min/1.73 sqM); Potassium 3.6 mmol/L (3.5-5.1); Sodium 138 mmol/L (137-145)
[2019-07-07] MEDS: SODIUM CHLORIDE 0.9% 1,000 ML IV SCH (11:38)
--- NOTE | 2019-07-07 12:03 | P.DS ---
Providers Date of admission: 07/04/19 07:55 Expected date of discharge: 07/07/19 Attending physician: Kashmir Galeano Consults: 07/04/19 07:23 Consult Physician Urgent Consulting Provider: Rehan Allen Consult Reason/Comments: chest pain Do you want consulting provider notified?: Yes 07/05/19 15:39 Consult Physician Routine Consulting Provider: Norman Villar Consult Reason/Comments: pancreatitis and cholelithiasis Do you want consulting provider notified?: Yes Primary care physician: [facility] Course: Final diagnosis -acute pancreatitis -COPD possible without any acute exacerbation -Chest pain which is again secondary to gastroesophageal reflux disease or pancreatitis -Hypertension -Hyperlipidemia -Alcohol abuse and nicotine abuse -DVT prophylaxis Discharge disposition Patient is being discharged in a stable condition with guarded prognosis to home and will follow-up with primary care provider as scheduled this week. Patient will also be following up with Dr. sim in the outpatient setting to discuss surgery for cholecystectomy. Total time taken is 35 minutes. History of present illness Admitted for acute pancreatitis. Possibly alcoholic pancreatitis and ultrasound did show cholelithiasis general surgery will be consulted. Patient is feeling better hungry 180 patient was started on full liquid diet will advance as tolerated. Abdominal pain significant improved nausea resolved 07/06/2019 Patient is clinically doing well abdominal pain resolved patient's diet is advanced patient is supposed to undergo cholecystectomy tomorrow scheduled for surgery by Dr. Villar but patient wanted to follow up with the surgery as an outpatient. Patient will be discharged today has per her request. 07/07/2019 Patient is sitting up in bed and appears to be in no acute distress. Patient was walking the halls multiple times this morning. Patient was nothing by mouth as she was scheduled to undergo cholecystectomy with Dr. Villar and she is refusing surgery with him or Dr. Leavitt and is requesting Dr. Sim. Attempts were made to notify Dr. Sim with no response at this time and discuss this with the patient detail and patient will need to follow-up in the outpatient setting with Dr. sim to arrange for gallbladder surgery. Currently patient states she has no chest pain, no shortness of breath, no palpitations. Patient is afebrile. Patient denies any nausea or vomiting and was tolerating diet yesterday. Patient was nothing by mouth for the scheduled surgery this morning but as mentioned previously patient refused with Dr. Villar. Patient would like to go home today. Discussed with the patient about slowly advancing diet as tolerated and to continue avoiding tobacco and alcohol use in the outpatient setting. Patient will follow-up with Dr. Velazquez this week as scheduled. On exam vital signs are stable. Temp is 99.3F, pulse is 93, respirations are 18, blood pressure is 143/81, oxygen saturation is 99% on room air. Cardio S1, S2 are present. Respiratory system is clear to auscultation. Abdomen is soft and nontender. Nervous system shows no focal deficit. Please refer to medication reconciliation sheet for a list of medications. Patient Condition at Discharge: Fair Plan - Discharge Summary Discharge Rx Participant: No New Discharge Prescriptions: Continue Aspirin 81 mg PO DAILY Pravastatin Sodium [Pravachol] 20 mg PO HS Nitroglycerin Sl Tabs [Nitrostat] 0.4 mg SUBLINGUAL Q5M PRN PRN Reason: Chest Pain Losartan Potassium [Cozaar] 25 mg PO DAILY Loratadine [Claritin] 10 mg PO DAILY Ferrous Sulfate [Iron (65 MG Elemental)] 325 mg PO DAILY Cholecalciferol [Vitamin D3 (25 Mcg = 1000 Iu)] 2,000 unit PO DAILY Multivitamins, Thera [Multivitamin (formulary)] 1 tab PO DAILY Omeprazole [PriLOSEC] 20 mg PO AC-BID #60 capsule. Albuterol Inhaler [Ventolin Hfa Inhaler] 2 puff INHALATION RT-Q6H PRN PRN Reason: Shortness Of Breath Or Wheezing Fluticasone/Salmeterol [Advair 250-50 Diskus] 1 puff INHALATION RT-BID Discontinued Azithromycin [Zithromax] 500 mg PO Q24H #5 tab Discharge Medication List Aspirin 81 mg PO DAILY 09/11/16 [History] Pravastatin Sodium [Pravachol] 20 mg PO HS 09/11/16 [History] Cholecalciferol [Vitamin D3 (25 Mcg = 1000 Iu)] 2,000 unit PO DAILY 05/12/18 [History] Ferrous Sulfate [Iron (65 MG Elemental)] 325 mg PO DAILY 05/12/18 [History] Loratadine [Claritin] 10 mg PO DAILY 05/12/18 [History] Losartan Potassium [Cozaar] 25 mg PO DAILY 05/12/18 [History] Nitroglycerin Sl Tabs [Nitrostat] 0.4 mg SUBLINGUAL Q5M PRN 05/12/18 [History] Multivitamins, Thera [Multivitamin (formulary)] 1 tab PO DAILY 11/27/18 [History] Omeprazole [PriLOSEC] 20 mg PO AC-BID #60 capsule. 07/03/19 [Rx] Albuterol Inhaler [Ventolin Hfa Inhaler] 2 puff INHALATION RT-Q6H PRN 07/04/19 [History] Fluticasone/Salmeterol [Advair 250-50 Diskus] 1 puff INHALATION RT-BID 07/04/19 [History] Follow up Appointment(s)/Referral(s): Alonso Sim MD [Medical Doctor] - 1 Week Ham Velazquez DO [Primary Care Provider] - 07/10/19 10:20 am ([place] [facility]) Activity/Diet/Wound Care/Special Instructions: Activity Limited until follow-up Continue current low fiber diet and advance slowly as tolerated Follow-up with primary care provider this week Continue you to avoid alcohol and tobacco use Follow-up with Dr. sim in the outpatient setting to schedule cholecystectomy Discharge Disposition: HOME SELF-CARE
== END 2019-07-07 13:55 | disposition home or self-care (01) | DRG 440 ==
LOC: EC 06:05 → 3SCARD 07:55 → 5NMEDONC 21:40
PROVIDERS: ADMIT Hospitalist; ATTEND Hospitalist
DX: K85.90 Acute pancreatitis without necrosis or infection, unspecified (principal); F10.10 Alcohol abuse, uncomplicated; M19.90 Unspecified osteoarthritis, unspecified site; K21.9 Gastro-esophageal reflux disease without esophagitis; J44.9 Chronic obstructive pulmonary disease, unspecified; I25.10 Atherosclerotic heart disease of native coronary artery without angina pectoris; E78.5 Hyperlipidemia, unspecified; I10 Essential (primary) hypertension; I27.20 Pulmonary hypertension, unspecified; F17.210 Nicotine dependence, cigarettes, uncomplicated; K80.20 Calculus of gallbladder without cholecystitis without obstruction; I25.2 Old myocardial infarction; Z79.82 Long term (current) use of aspirin; Z79.899 Other long term (current) drug therapy; Z83.3 Family history of diabetes mellitus; Z87.09 Personal history of other diseases of the respiratory system; Z87.11 Personal history of peptic ulcer disease
CPT/HCPCS: 36415; 71046; 76700; 80048; 80053; 82150; 82787; 83690; 83735; 84478; 84484; 85025; 85049; 85610; 85730; 86038; 93005; 94640; 94760; 96365; 96376; 99285

== ENCOUNTER 2019-08-04 07:30 | Day surgery (SDC) | payer OTHER ==
[2019-07-30 13:26] VITALS: BMI 20.5
[~2019-08-04 07:30] MED LIST: DEXAMETHASONE SOD PHOSPHATE 10 MG/ML 1 ML VIAL IV ONE; HEPARIN SODIUM,PORCINE 5,000 UNIT/ML 1 ML VIAL SQ ONE; LACTATED RINGERS 1,000 ML IV SCH; LIDOCAINE 1% 20 ML VIAL (10MG/ML) FOR IV START INTRADERMA PRN; MIDAZOLAM 2 MG/2 ML VIAL IV PRN; ONDANSETRON 4 MG/2 ML VIAL IVP ONE; fentaNYL (PF) 50 MCG/ML 2 ML AMP IV PRN
[2019-08-04 08:25] LABS: Glucose,Whole Blood 102 mg/dL (75-99)
[2019-08-04] MEDS ORDERED: SUCCINYLCHOLINE CHLORIDE 100 MG/5 ML SYR IV ONE (08:40)
[2019-08-04] MEDS ORDERED: ROCURONIUM BROMIDE 10 MG/ML 5 ML VIAL IV ONE (08:40)
[2019-08-04] MEDS ORDERED: fentaNYL (PF) 50 MCG/ML 2 ML AMP ONE (08:40)
[2019-08-04] MEDS ORDERED: MIDAZOLAM 2 MG/2 ML VIAL ONE (08:40)
[2019-08-04] MEDS ORDERED: PROPOFOL 10 MG/ML 20 ML VIAL IV ONE (08:40)
[2019-08-04] MEDS ORDERED: LIDOCAINE 1% INJ 10MG/ML (20 ML MDV) ONE (08:40)
[2019-08-04] MEDS ORDERED: KETOROLAC 30 MG/ML 1 ML VIAL ONE (08:40)
[2019-08-04] MEDS ORDERED: BUPIVACAINE-EPI 0.5%-1:200,000 10 ML VIAL SQ ONE (08:45)
[2019-08-04] MEDS ORDERED: LACTATED RINGERS 1,000 ML IV ONE (09:33)
[2019-08-04] MEDS ORDERED: NALOXONE 0.4 MG/ML 1 ML VIAL IV PRN (09:43)
[2019-08-04] MEDS ORDERED: HYDROcodone/APAP 5-325MG 1 EACH TAB PO PRN (09:43)
--- NOTE | 2019-08-04 09:46 | P.OP ---
Date of Procedure: 08/04/19 Procedure(s) Performed: PREOPERATIVE DIAGNOSIS: Gallstone pancreatitis POSTOPERATIVE DIAGNOSIS: Same PROCEDURE: Laparoscopic cholecystectomy SURGEON: Chiquis EBL: Minimal see anesthesia record ANESTHESIA: Gen. COMPLICATIONS: None OPERATIVE PROCEDURE: The patient was brought and placed on the operating room ta [facility] in the supine position. The patient was placed under general anesthesia at that time. The abdomen was prepped and draped in the usual sterile fashion. A small vertical infraumbilical incision was made. The fascia was grasped with the Lv forceps. The fascia was retracted anteriorly. The Veress needle was advanced into the peritoneal cavity. The saline drop test was normal. Insufflation took place up to 15 mmHg. A 5 mm optical trocar was advanced and the peritoneal cavity. 2 additional 5 mm trochars were placed in the right upper quadrant under direct visualization. A 12 mm trocar was advanced into the epigastric incision site. The gallbladder was retracted superiorly and laterally. The peritoneum overlying the infundibulum was bluntly dissected. The patient's cystic duct was visualized. The junction between the cystic duct common and hepatic duct was identified. The cystic duct was then divided after placement of 3 12 mm clips on the patient's side and one on the specimen side. The cystic artery was identified and clipped as well. A small vessel was seen along the gallbladder fossa and clipped as well. The gallbladder was then removed from the liver bed using electrocautery. The gallbladder was then removed from the epigastric trocar site with an Endo Catch bag. The gallbladder fossa was irrigated with saline. There was no evidence of any bleeding or biliary drainage seen. The fascia at the 12 millimeter site was closed using a Jamey-Tiarra 0 Vicryl stitch. The trochars were then removed. The skin at all 4 sites was closed using a 4-0 Monocryl stitch. Skin glue was utilized on the incision sites. At the end of this procedure the sponge and needle counts were correct. DISPOSITION: Stable to the recovery room
[2019-08-04 09:55] VITALS: TEMP 97.2
[2019-08-04] MEDS: HYDROmorphone 0.5 MG/0.5 ML SYRINGE IVP PRN ×2 (10:15→10:31)
[2019-08-04] MEDS ORDERED: HYDROcodone/APAP 5-325MG 1 EACH TAB PO ONE (11:19)
[2019-08-04 12:24] VITALS: BP 120/76; PULSE 73; RESP 18
== END 2019-08-04 12:12 | disposition home or self-care (01) ==
LOC: OR 07:30
PROVIDERS: ATTEND Surgery
DX: K81.1 Chronic cholecystitis (principal); K85.10 Biliary acute pancreatitis without necrosis or infection; I10 Essential (primary) hypertension; I25.2 Old myocardial infarction; J45.909 Unspecified asthma, uncomplicated; K21.9 Gastro-esophageal reflux disease without esophagitis; E78.5 Hyperlipidemia, unspecified; Z87.11 Personal history of peptic ulcer disease; Z79.82 Long term (current) use of aspirin; Z79.899 Other long term (current) drug therapy; Z90.89 Acquired absence of other organs; Z98.51 Tubal ligation status; Z98.818 Other dental procedure status; Z83.3 Family history of diabetes mellitus; Z87.891 Personal history of nicotine dependence
CPT/HCPCS: 88304; 47562; J2250; J1644; J1100; J0690; J2405; J2001; J3010; J1885; J0330; J2704; J1170

== ENCOUNTER → 2022-05-16 | Outpatient (CLI) | payer OTHER ==
--- NOTE | 2022-05-16 15:40 | XR ---
EXAMINATION TYPE: XR knee limited LT DATE OF EXAM: 05/16/2022 CLINICAL HISTORY: Pain. TECHNIQUE: Frontal and lateral views of the left knee are obtained. COMPARISON: None. FINDINGS: There is no acute fracture/dislocation evident in the knee. Mild tricompartment joint spac e loss. Posterior vascular calcification and phleboliths are seen. IMPRESSION: As above.
== END | disposition home or self-care (01) ==
LOC: RADXRMAIN 10:47
PROVIDERS: ATTEND Family Medicine
DX: M25.562 Pain in left knee (principal); I87.8 Other specified disorders of veins

== ENCOUNTER → 2022-06-16 | Outpatient (CLI) | payer OTHER ==
--- NOTE | 2022-06-16 15:04 | BD ---
EXAMINATION TYPE: Axial Bone Density DATE OF EXAM: 06/16/2022 COMPARISON: NONE CLINICAL HISTORY: 66 years year old Female. ICD-10 CODE: M85.89 oth disorder on bone structure Height: 59.5 IN Weight: 93 LBS FRAX RISK QUESTIONS: Alcohol (3 or more units per day): YES Current Tobacco Use: YES RISK FACTORS HISTORY OF: Active: VERY LIMITED Diet low in dairy products/other sources of calcium: Postmenopausal woman: AGE 48 MEDICATIONS: Additional Medications: VIT D, CHOLESTEROL, ASPIRIN, BLOOD PRESSURE MEDS, ACID REFLUX MEDS, PAIN MEDS , EXAM MEASUREMENTS: Bone mineral densitometry was performed using the Syncbak System. Bone mineral density as measured about the Lumbar spine is: ----- L1-L4(G/cm2): 1.067 T Score Values are as follows: ----- L1: -1.3 ----- L2: -1.0 ----- L3: -0.8 ----- L4: -0.9 ----- L1-L4: -0.9 Bone mineral density BASELINE Bone mineral density about the R hip (g/cm2): 0.857 Bone mineral density about the L hip (g/cm2): 0.847 T Score values are as follows: -----R Neck: -1.3 -----L Neck: -1.4 -----R Total: -0.6 -----L Total: -0.5 Bone mineral density BASELINE FRAX%s: The graph provided illustrates a 5.1 chance for a major osteoporotic fx and a 1.1 chance for the hips probability for fx in 10 years time. IMPRESSION: Osteopenia (T Score between -2.5 and -1). There is slightly increased risk of fracture and the patient may be considered for treatment. Re-Screen 2-5 years. NOTE: T-SCORE=SD OF THE YOUNG ADULT MEAN.
--- NOTE | 2022-06-19 18:38 | MM ---
Reason for Exam: Screening (asymptomatic). Last mammogram was performed 3 year(s) and 11 month(s) ago. Patient History: Menarche at age 16. First Full-Term at age 21. Postmenopausal. Risk Values: Bita 5 year model risk: 1.4%. NCI Lifetime model risk: 5.1%. Prior Study Comparison: 06/24/2018 Bilateral Screening Mammogram, [facility]. Tissue Density: The breast tissue is heterogeneously dense. This may lower the sensitivity of mammography. Findings: Analyzed By CAD. Asymmetric density far posterior superior left MLO view is more defined and incompletely disperses on 3-D images. Further evaluation is recommended. Otherwise, no significant change. Overall Assessment: Incomplete: need additional imaging evaluation, BI-RAD 0 Management: Special View Mammogram of the left breast. Including spot 3-D MLO, 3-D XCCL, and 3-D lateral views (including far posterior tissues). Targeted left breast ultrasound for any persisting abnormality. Electronically signed and approved by: Rachael Edwards M.D. Radiologist
== END | disposition home or self-care (01) ==
LOC: RADBDWWP 13:13
PROVIDERS: ATTEND Family Medicine
DX: Z12.31 Encounter for screening mammogram for malignant neoplasm of breast (principal); M85.89 Other specified disorders of bone density and structure, multiple sites; Z78.0 Asymptomatic menopausal state
CPT/HCPCS: 77063; 77067; 77080

== ENCOUNTER → 2022-06-27 | Outpatient (CLI) | payer MEDICARE ==
--- NOTE | 2022-06-27 14:17 | MM ---
Reason for Exam: Additional evaluation requested from abnormal screening. Last screening mammogram was performed less than 1 month ago. Patient History: Menarche at age 16. First Full-Term at age 21. Postmenopausal. Risk Values: Bita 5 year model risk: 1.4%. NCI Lifetime model risk: 5.1%. Prior Study Comparison: 06/24/2018 Bilateral Screening Mammogram, [facility]. 06/16/2022 Bilateral MG 3D screening mammo w/cad, [facility]. Tissue Density: Left: The breast tissue is heterogeneously dense. This may lower the sensitivity of mammography. Findings: Analyzed By CAD. The superior posterior area of asymmetric density completely disperses on additional views. No persisting suspicious abnormality is seen. Overall Assessment: Benign, BI-RAD 2 Management: Screening Mammogram of both breasts in 1 year. 1. Patient should continue monthly self breast exams. 2. A clinical breast exam by your physician is recommended on an annual basis. 3. This exam should not preclude additional follow-up of suspicious palpable abnormalities. Results were given to the patient verbally at the time of exam. Electronically signed and approved by: Rachael Edwards M.D. Radiologist
== END | disposition home or self-care (01) ==
LOC: RADMAMWWP 13:31
PROVIDERS: ATTEND Family Medicine
DX: R92.8 Other abnormal and inconclusive findings on diagnostic imaging of breast (principal); Z78.0 Asymptomatic menopausal state
CPT/HCPCS: 77065; G0279; 77061